=== PATIENT | female | born 1995 | race Caucasian/White ===

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

== ENCOUNTER → 2017-06-21 | Outpatient (CLI) | payer OTHER ==
--- NOTE | 2017-06-21 09:12 | MR ---
EXAMINATION TYPE: MR brain wo/w con DATE OF EXAM: 06/21/2017 COMPARISON: Prior MRI brain September 09, 2016. CT brain January 26, 2016. HISTORY: Headaches, dizziness TECHNIQUE: Multiplanar, multisequence images of the brain and brainstem is performed without and with IV contras t, utilizing 13 mL intravenous Gadavist . FINDINGS: Diffusion weighted images demonstrate no evidence of a recent infarct or other diffusion ab normality. There is no extra-axial fluid collection or significant white matter signal abnormality. The ventricular system and cisternal spaces are normal in size and appearance. The brain volume is age appropriate. Midline structures demonstrate normal morphology. The craniocervical junction appears within normal limits. Post contrast images demonstrate no abnormal enhancement. The dural venous sinuses appear pa tent. The visualized sinuses are clear and the globes are intact. No suspicious fluid signal is seen in mastoid air cells bilaterally. IMPRESSION: No significant finding is seen to account for patient's symptoms. No significant change f rom prior studies is noted.
--- NOTE | 2017-06-21 09:26 | MR ---
EXAMINATION TYPE: MR mandeep/lsjuve wo con DATE OF EXAM: 06/21/2017 COMPARISON: CT cervical spine January 22, 2015. CT abdomen and pelvis March 11, 2015. HISTORY: cervicalgia and Lumbago per order. Headaches with recently noticed lump in neck per patient. Scoliosis with middle back pain for 5 years causing pain into both thighs per patient. TECHNIQUE: Multiplanar, multisequence imaging of the cervical and lumbar spine are performed without IV contrast. FINDINGS: C-SPINE: FINDINGS: Sagittal images of the cervical spine show the craniocervical junction to appear within nor mal limits. The cervical and upper thoracic spinal cord is normal in course, caliber, and signal. V ertebral alignment remains straightened. The vertebral body and intravertebral disk heights are reynaldo l. No significant posterior disc herniations are seen on sagittal images. The bone marrow signal inte nsity is within normal limits. No significant spurring is seen. Axial images show there is no significant focal disk disease, spinal canal stenosis, neural foraminal narrowing, or spinal cord compromise at any cervical level. IMPRESSION: Straightening of cervical spine redemonstrated otherwise unremarkable study. L-SPINE: Sagittal images of the lumbar spine show vertebral body heights and alignment to appear satisfactory. The intervertebral discs demonstrate normal heights and hydration. No large disc herniations are see n on sagittal images. The conus medullaris is normal in position and signal ending at inferior L1 lev el. The bone marrow signal intensity is within normal limits. No significant spurring is seen. Axial images show mild facet arthropathy L4-L5 level otherwise are felt unremarkable. There is no sp inal canal stenosis, neural foraminal narrowing, or evidence of nerve root compromise at any lumbar l evel. Paraspinal muscle bulk is preserved. No suspicious retroperitoneal findings are seen. IMPRESSION: Mild facet arthropathy L4-L5 level otherwise unremarkable study.
== END ==
LOC: RADMRIMAIN 07:29
PROVIDERS: ATTEND Nurse Practitioner Acute Care
DX: M46.86 Other specified inflammatory spondylopathies, lumbar region (principal); M54.2 Cervicalgia; R51 Headache; R42 Dizziness and giddiness
CPT/HCPCS: 70553; 72141; 72148; A9581

== ENCOUNTER → 2017-07-09 | Outpatient (CLI) | payer OTHER ==
--- NOTE | 2017-07-09 11:18 | US ---
EXAMINATION TYPE: US abdomen complete DATE OF EXAM: 07/09/2017 COMPARISON: NONE CLINICAL HISTORY: R10.9 Abd Pain, Pelvic pain R10.2. EXAM MEASUREMENTS: Liver Length: 19.1 cm Gallbladder Wall: 0.4 cm CBD: 0.2 cm Spleen: 13.7 cm Right Kidney: 12.4 x 4.5 x 4.6 cm Left Kidney: 12.8 x 4.8 x 5.8 cm Morbidly obese patient, technically difficult study Pancreas: Obscured by bowel gas Liver: Increased attenuation, decreased visualization of vessels suggestive of fatty infiltrate, hep atomegaly Gallbladder: No stones seen Evidence for sonographic Hoyos's sign: no CBD: wnl Spleen: splenomegaly Right Kidney: enlarged Left Kidney: enlarged Upper IVC: wnl Abd Aorta: Bifurcation obscured by overlying bowel gas, otherwise wnl IMPRESSION: 1. Mild increased hepatic attenuation that most commonly relates to mild hepatic steatosis. 2. Splenomegaly.
--- NOTE | 2017-07-09 11:27 | US ---
EXAMINATION TYPE: US pelvic complete DATE OF EXAM: 07/09/2017 COMPARISON: NONE CLINICAL HISTORY: R10.9 Abd Pain, Pelvic pain R10.2. TECHNIQUE: Transabdominal (TA) Date of LMP: Patient unsure, but believes it may have been the end of last month. EXAM MEASUREMENTS: Uterus: 6.8 x 2.4 x 3.2 cm Endometrial Stripe: 0.4 cm Right Ovary: 2.4 x 1.5 x 1.7 cm Left Ovary: 2.4 x 1.5 x 1.5 cm Morbidly obese patient. 1. Uterus: Anteverted wnl 2. Endometrium: wnl 3. Right Ovary: wnl 4. Left Ovary: wnl 5. Bilateral Adnexa: wnl 6. Posterior cul-de-sac: wnl IMPRESSION: Slightly limited exam due to the patient's body habitus and transabdominal technique, how ever uterus, ovaries, and endometrium appear grossly within normal limits.
== END | disposition home or self-care (01) ==
LOC: RADUSWWP 09:52
PROVIDERS: ATTEND Family Medicine
DX: K76.0 Fatty (change of) liver, not elsewhere classified (principal); R16.1 Splenomegaly, not elsewhere classified; R10.9 Unspecified abdominal pain
CPT/HCPCS: 76700; 76856

== ENCOUNTER 2017-10-21 09:27 | Day surgery (SDC) | payer OTHER ==
[2017-10-20 09:06] VITALS: BMI 49.2
[~2017-10-21 09:27] MED LIST: LACTATED RINGERS 1,000 ML IV SCH
[2017-10-21 10:25] VITALS: RESP 16; TEMP 98.2
[2017-10-21] MEDS ORDERED: LIDOCAINE 1% 20 ML VIAL (10MG/ML) FOR IV START INTRADERMA ONE (10:25)
--- NOTE | 2017-10-21 11:13 | P.PCN ---
Date of Procedure: 10/21/17 Procedure(s) Performed: Preoperative diagnosis: Pseudotumor cerebri Post operative diagnoses: Pseudotumor cerebri Procedure= lumbar puncture Anesthesia local infiltration with lidocaine 1% 2 mL., and moderate sedation with Versed 2 mg and fentanyl 150 g Condition: stable Complication: none. Description of the procedure procedure risk and benefits discussed with the patient ,and consent signed. Patient and the procedure area placed in lateral position back prepped with chlorhexidine 3 times been local infiltration of the skin and subcutaneous tissue with lidocaine 1% 2 mL for skin and subcu interstitial frustrations at L4 5 levels then 20-gauge Quincke-type needle advanced slowly at L4- 5 interlaminar space there was positive cerebrospinal fluid which was clear, no heme, no paresthesia opening pressure was 36 cm of water total of 12 ML of clear cerebrospinal fluid collected in 4 different tubes 3-/2 mL in each, then the needle removed and a Band-Aid applied and patient tolerated the procedure well without any complications. opening pressures 36 c.m of water
[2017-10-21] MEDS ORDERED: IV FLUID CONTINUATION 1,000 ML IV ONE (11:16)
[2017-10-21 12:12] VITALS: BP 111/60; PULSE 74
[2017-10-21 12:16] LABS: Glucose,CSF 49 mg/dL (40-70); Total Protein,CSF 31 mg/dL (12-60)
[2017-10-21 14:56] LABS: Appearance,CSF Clear; CSF Tube Number 2; CSF Tube Volume 4.5; Nucleated Cells, CSF 0 u/L (0-5); Red Blood Cell,CSF 0 u/L (0-10)
== END 2017-10-21 12:32 | disposition home or self-care (01) ==
LOC: ORPAIN 09:27
PROVIDERS: ATTEND Specialist
DX: G93.2 Benign intracranial hypertension (principal); Z88.0 Allergy status to penicillin; Z88.1 Allergy status to other antibiotic agents; Z88.5 Allergy status to narcotic agent
CPT/HCPCS: 62270; 81025; 88108; 84157; 82945; 89050; J2250; J2001; J3010; 99152

== ENCOUNTER 2017-10-22 15:10 | Emergency (ER) | payer OTHER ==
[2017-10-22 15:30] VITALS: TEMP 98
[2017-10-22] MEDS ORDERED: METOCLOPRAMIDE 5 MG/ML 2 ML VIAL IVP STA (15:32)
[2017-10-22] MEDS ORDERED: diphenhydrAMINE 50 MG/ML 1 ML VIAL IVP STA (15:32)
[2017-10-22] MEDS ORDERED: CAFFEINE-SODIUM BENZOATE 500 MG in SODIUM CHLORIDE 0.9% 1,000 ML IVPB ONE (15:45)
[2017-10-22] MEDS ORDERED: HYDROmorphone 0.5 MG/0.5 ML SYRINGE IVP STA (16:19)
--- NOTE | 2017-10-22 16:23 | ED ---
General Adult HPI - General Source: patient Mode of arrival: ambulatory Limitations: no limitations <Checo Montano - Last Filed: 10/22/17 16:20> - General Source: patient, RN notes reviewed Mode of arrival: ambulatory Limitations: no limitations <Royer Pimentel - Last Filed: 10/22/17 17:18> - General Chief complaint: Nausea/Vomiting/Diarrhea Stated complaint: HALL S/P Lumbar puncture Time Seen by Provider: 10/22/17 15:21 - History of Present Illness Initial comments: This a 22-year-old female since emergency Department chief complaint headache. Patient states she had LP yesterday but Dr. Garcia to rule in or rule out pseudotumor cerebri. Patient states that her opening pressures 36 slightly increased from prior 33. Patient states that she went home she had a headache she states she laid at home flap 4 hours or she didn't think. She's tried Fioricet, Tylenol and ibuprofen. Patient states that has not helped. She states every time she stands up it worse and she vomits. Patient comes here secondary to spinal headache. Patient denies any fevers or chills. Denies any back pain. (Royer Pimentel) - Related Data Home Medications Medication Instructions Recorded Confirmed traZODone HCL [Desyrel] 100 mg PO HS 07/17/16 10/22/17 Butalb/APAP/Caff 50-325-40Mg 1 tab PO Q6H PRN 10/19/16 10/22/17 [Fioricet 50-325-40] Medroxyprogesterone Acetate 150 mg IM Q90D 10/20/17 10/22/17 [Depo-Provera] Topiramate [Topamax] 150 mg PO DAILY 10/20/17 10/22/17 acetaZOLAMIDE [Diamox] 375 mg PO BID 10/20/17 10/22/17 Ferrous Sulfate [Feosol] 325 mg PO DAILY 10/22/17 10/22/17 Previous Rx's Medication Instructions Recorded Ondansetron Odt [Zofran Odt] 4 mg PO Q8HR PRN #20 tab 10/22/17 Allergies Allergy/AdvReac Type Severity Reaction Status Date / Time morphine Allergy Intermediate Rash/Hives Verified 10/22/17 15:53 Penicillins Allergy Intermediate Rash/Hives Verified 10/22/17 15:53 clarithromycin [From Biaxin] Allergy Rash/Hives Verified 10/22/17 15:53 Review of Systems ROS Other: All systems not noted in ROS Statement are negative. <Checo Montano - Last Filed: 10/22/17 16:20> ROS Other: All systems not noted in ROS Statement are negative. <Royer Pimentel - Last Filed: 10/22/17 17:18> ROS Statement: Those systems with pertinent positive or pertinent negative responses have been documented in the HPI. Past Medical History Past Medical History: Asthma, Chest Pain / Angina, GERD/Reflux, Musculoskeletal Disorder, Syncope Additional Past Medical History / Comment(s): CHILDHOOD ASTHMA; Seasonal Allergies; HX PANCREATITIS; HX LT ANKLE FX, "POPS" OUT OF PLACE OCC; C/O FREQ PALPITATIONS, GETS CP, POTS, POCS; OPTIC NERVE PRESSURE/UNKNOWN CAUSE History of Any Multi-Drug Resistant Organisms: MRSA Date of last positivie culture/infection: 2014 MDRO Source:: left foot Past Surgical History: No Surgical Hx Reported Additional Past Surgical History / Comment(s): WISDOM TEETH EXTRACTED; PAIN PROCEURES Past Anesthesia/Blood Transfusion Reactions: Motion Sickness Past Psychological History: Anxiety, Depression, Panic Disorder, PTSD Smoking Status: Current every day smoker Past Alcohol Use History: None Reported Past Drug Use History: None Reported - Past Family History Mother Family Medical History: No Reported History <Checo Montano - Last Filed: 10/22/17 16:20> General Exam Limitations: no limitations <Checo Montano - Last Filed: 10/22/17 16:20> General appearance: alert, in no apparent distress Head exam: Present: atraumatic, normocephalic, normal inspection Eye exam: Present: normal appearance, PERRL, EOMI. Absent: scleral icterus, conjunctival injection, periorbital swelling ENT exam: Present: normal exam, normal oropharynx, mucous membranes moist, TM's normal bilaterally Neck exam: Present: normal inspection, full ROM. Absent: tenderness, meningismus, lymphadenopathy Respiratory exam: Present: normal lung sounds bilaterally. Absent: respiratory distress, wheezes, rales, rhonchi, stridor Cardiovascular Exam: Present: regular rate, normal rhythm, normal heart sounds. Absent: systolic murmur, diastolic murmur, rubs, gallop, clicks Neurological exam: Present: alert, oriented X3, CN II-XII intact, reflexes normal. Absent: motor sensory deficit Skin exam: Present: warm, dry, intact, normal color. Absent: rash <Royer Pimentel - Last Filed: 10/22/17 17:18> Vital Signs 10/22/17 15:23 Temperature 98.0 F Pulse Rate 87 Respiratory 22 Rate Blood Pressure 127/61 O2 Sat by Pulse 98 Oximetry Medical Decision Making <Checo Montano - Last Filed: 10/22/17 16:20> <Royer Pimentel - Last Filed: 10/22/17 17:18> - Medical Decision Making Medical decision making: The patient had an LP done yesterday for pseudotumor cerebra. She presents today with headache and vomiting when she stands up but is pain-free when she lays flat. I spoke with the Dr. Farrar, on-call anesthesiologist. He recommends that the patient be treated conservatively in the emergency room with medications to control nausea and pain. treat for pain and nausea at home. She can be discharged home and to return if needed on Wednesday if she continues have a headache for a lumbar patch done under fluoroscopy. Dr. Montano (Checo Montano) Patient presented for spinal headache after receiving outpatient yesterday. Patient's had nausea vomiting worse headache with standing up. Patient states she does feel slightly improved after IV fluids caffeine pain medication and antiemetics and Benadryl. Dr. Montano did discuss case with anesthesiologist recommends patient be discharged with pain medication and antiemetics and if symptoms persist on Wednesday the with a blood patch. Patient states that her neurologist called her and, according states she'll take this for her pain and I will discharge her with antiemetics. (Royer Pimentel) Disposition <Checo Montano - Last Filed: 10/22/17 16:20> Time of Disposition: 17:18 <Royer Pimentel - Last Filed: 10/22/17 17:18> Clinical Impression: Spinal headache Disposition: HOME SELF-CARE Instructions: Lumbar Puncture (ED) Additional Instructions: Please return to the Emergency Department if symptoms worsen or any other concerns. Prescriptions: Ondansetron Odt [Zofran Odt] 4 mg PO Q8HR PRN #20 tab PRN Reason: Nausea Referrals: Lian Ramon MD [Primary Care Provider] - 1-2 days
[2017-10-22 18:13] VITALS: RESP 18
[2017-10-22 18:16] VITALS: BP 114/64; PULSE 71
== END 2017-10-22 18:14 | disposition home or self-care (01) ==
LOC: EC 15:10
DX: G97.1 Other reaction to spinal and lumbar puncture (principal); R11.10 Vomiting, unspecified; F32.9 Major depressive disorder, single episode, unspecified; F41.0 Panic disorder [episodic paroxysmal anxiety]; F43.10 Post-traumatic stress disorder, unspecified; F17.200 Nicotine dependence, unspecified, uncomplicated; Z86.14 Personal history of Methicillin resistant Staphylococcus aureus infection; Z79.899 Other long term (current) drug therapy; Z88.0 Allergy status to penicillin; Z88.1 Allergy status to other antibiotic agents; Z88.5 Allergy status to narcotic agent; Z98.890 Other specified postprocedural states
CPT/HCPCS: 99284; 96374; 96375 ×3; J1200; J2765; J1170

== ENCOUNTER 2017-10-26 14:20 | Inpatient (IN) | payer OTHER ==
[2017-10-26] MEDS ORDERED: METOCLOPRAMIDE 5 MG/ML 2 ML VIAL IVP STA (14:50)
[2017-10-26] MEDS ORDERED: diphenhydrAMINE 50 MG/ML 1 ML VIAL IVP STA (14:50)
[2017-10-26] MEDS ORDERED: SODIUM CHLORIDE 0.9% 1,000 ML IV ONE (14:50)
[2017-10-26] MEDS ORDERED: CAFFEINE-SODIUM BENZOATE 500 MG in SODIUM CHLORIDE 0.9% 1,000 ML IVPB ONE (15:00)
[2017-10-26 15:17] LABS: Anisocytosis Slight; Basophils # (A) 0.1 k/uL (0-0.2); Basophils % (A) 1 %; Eosinophils # (A) 0.1 k/uL (0-0.7); Eosinophils % (A) 1 %; HCT 44.2 % (34.0-46.0); HGB 14.3 gm/dL (11.4-16.0); Lymphocytes # (A) 2.2 k/uL (1.0-4.8); Lymphocytes % (A) 14 %; MCH 25.6 pg (25.0-35.0); MCHC 32.4 g/dL (31.0-37.0); MCV 79.1 fL (80.0-100.0); Mean Platelet Volume 7.2; Monocytes # (A) 0.5 k/uL (0-1.0); Monocytes % (A) 3 %; Neutrophils # (A) 12.6 k/uL (1.3-7.7); Neutrophils % (A) 81 %; Platelet Count 286 k/uL (150-450); RBC 5.59 m/uL (3.80-5.40); WBC 15.6 k/uL (4.0-11.0)
[2017-10-26 15:28] LABS: Anion Gap 15 mmol/L; Blood Urea Nitrogen 13 mg/dL (7-17); Calcium 9.6 mg/dL (8.4-10.2); Carbon Dioxide 21 mmol/L (22-30); Chloride 109 mmol/L (98-107); Glucose 106 mg/dL (74-99); Potassium 3.9 mmol/L (3.5-5.1); Sodium 145 mmol/L (137-145)
--- NOTE | 2017-10-26 15:30 | ED ---
Headache HPI - General Chief Complaint: Headache Stated Complaint: headache Time Seen by Provider: 10/26/17 14:34 Mode of arrival: ambulatory Limitations: no limitations - History of Present Illness Initial Comments: 22-year-old obese female presenting for evaluation of intractable headache. States she has been undergoing workup for these headaches which she has had since she was 20 years old is included an MRI on 09/29/2017 which showed nodular appearance of the ... She had a lumbar puncture by Dr. Garcia on 10/21/17 with an opening pressure of 36 (elevated from previous 32) and has had the HALL since. Was seen in this ED the following day and Dr. Schneider ( anesthesia) recommended medical management and to return to the ED wednesday for blood patch under fluoroscopy if symptoms should worsen or persist. Although she continued to have HALL, her pain clinic recommended she give it one more day, hence her presentation today. She states it is in the occipital area and worse with standing upright and improved with lying prone. No response to fioricet or zofran. Denies change in vision, gait disturbance, fevers, chills, chest pain, shortness of breath, rash or skin lesions to area of LP. - Related Data Home Medications Medication Instructions Recorded Confirmed traZODone HCL [Desyrel] 100 mg PO HS 07/17/16 10/26/17 Butalb/APAP/Caff 50-325-40Mg 1 tab PO Q6H PRN 10/19/16 10/26/17 [Fioricet 50-325-40] Medroxyprogesterone Acetate 150 mg IM Q90D 10/20/17 10/26/17 [Depo-Provera] Topiramate [Topamax] 150 mg PO DAILY 10/20/17 10/26/17 acetaZOLAMIDE [Diamox] 375 mg PO BID 10/20/17 10/26/17 Ferrous Sulfate [Feosol] 325 mg PO HS 10/22/17 10/26/17 Acetaminophen-Codeine 300-30mg 1 tab PO BID PRN 10/26/17 10/26/17 [Tylenol #3] Previous Rx's Medication Instructions Recorded Ondansetron Odt [Zofran Odt] 4 mg PO Q8HR PRN #20 tab 10/22/17 Allergies Allergy/AdvReac Type Severity Reaction Status Date / Time morphine Allergy Intermediate Rash/Hives Verified 10/26/17 14:41 Penicillins Allergy Intermediate Rash/Hives Verified 10/26/17 14:41 clarithromycin [From Biaxin] Allergy Rash/Hives Verified 10/26/17 14:41 Review of Systems ROS Statement: Those systems with pertinent positive or pertinent negative responses have been documented in the HPI. ROS Other: All systems not noted in ROS Statement are negative. Constitutional: Denies: fever, chills, weight change, night sweats Eyes: Denies: eye pain, vision change ENT: Denies: ear pain, throat pain, epistaxis, congestion Respiratory: Denies: cough, wheezes Cardiovascular: Denies: as per HPI, chest pain, dyspnea on exertion, syncope Endocrine: Denies: fatigue, polydipsia, polyuria Gastrointestinal: Reports: nausea. Denies: abdominal pain, vomiting Genitourinary: Denies: urgency, dysuria, frequency Musculoskeletal: Denies: back pain, arthralgia, myalgia Skin: Denies: rash, lesions, change in color Neurological: Reports: headache. Denies: weakness, numbness, paresthesias, confusion, abnormal gait, vertigo Psychiatric: Denies: anxiety, depression Hematological/Lymphatic: Denies: easy bleeding, easy bruising Past Medical History Past Medical History: Asthma, Chest Pain / Angina, GERD/Reflux, Musculoskeletal Disorder, Syncope Additional Past Medical History / Comment(s): CHILDHOOD ASTHMA; Seasonal Allergies; HX PANCREATITIS; HX LT ANKLE FX, "POPS" OUT OF PLACE OCC; C/O FREQ PALPITATIONS, GETS CP, POTS, POCS; OPTIC NERVE PRESSURE/UNKNOWN CAUSE History of Any Multi-Drug Resistant Organisms: MRSA Date of last positivie culture/infection: 2014 MDRO Source:: left foot Past Surgical History: No Surgical Hx Reported Additional Past Surgical History / Comment(s): WISDOM TEETH EXTRACTED; PAIN PROCEURES Past Anesthesia/Blood Transfusion Reactions: Motion Sickness Past Psychological History: Anxiety, Depression, Panic Disorder, PTSD Smoking Status: Current every day smoker Past Alcohol Use History: None Reported Past Drug Use History: None Reported - Past Family History Mother Family Medical History: No Reported History General Exam Limitations: no limitations General appearance: alert, in no apparent distress Head exam: Present: atraumatic, normocephalic, normal inspection Eye exam: Present: normal appearance, PERRL, EOMI. Absent: scleral icterus, conjunctival injection, periorbital swelling ENT exam: Present: normal exam, normal oropharynx Neck exam: Present: normal inspection, full ROM. Absent: tenderness, meningismus Respiratory exam: Present: normal lung sounds bilaterally. Absent: respiratory distress, wheezes, rales, rhonchi, stridor Cardiovascular Exam: Present: normal rhythm, tachycardia. Absent: regular rate GI/Abdominal exam: Present: soft. Absent: distended, tenderness, guarding, rebound, rigid Rectal exam: Present: deferred Extremities exam: Present: normal inspection, full ROM Back exam: Present: normal inspection, full ROM. Absent: tenderness, CVA tenderness (R), CVA tenderness (L), muscle spasm, paraspinal tenderness, vertebral tenderness Neurological exam: Present: alert, oriented X3, CN II-XII intact Psychiatric exam: Present: normal affect, normal mood Skin exam: Present: warm, dry, intact, normal color, rash Course Vital Signs 10/26/17 10/26/17 14:29 16:34 Temperature 97.7 F 98.2 F Pulse Rate 108 H 75 Respiratory 18 16 Rate Blood Pressure 119/69 135/76 O2 Sat by Pulse 98 100 Oximetry Medical Decision Making - Medical Decision Making 22-year-old female with past medical history of intractable headaches taking Fioricet and Zofran presented for evaluation of continued headache. Lumbar puncture on 10/21/[address] Garcia, returned 10/22/17 and anesthesia recommended medical management and return on Wednesday if symptoms should worsen or persist. Patient found on bed laying prone. Cranial nerves II through XII intact without focal neurologic deficits and normal gait and station however she does appear to go into mild to moderate distress with sitting upright. Remainder of physical exam is benign. We'll obtain labs and provide symptom control and start admission process. Discussed with Dr. An who accepted the admission with request for consult with Anesthesia for blood patch and Dr. Orourke (neuro). He further requested CTA head which was supposed to be obtained yesterday as an outpatient. Admission order placed and bed request submitted. Discussed with Dr. Garcia who stated he would be able to see the patient later today. Dr. Orourke requested the consult be held at this time and if there is no improvement after the blood patch to consult him at that point. - Lab Data Result diagrams: 10/26/17 15:04 10/26/17 15:04 Lab Results 10/26/17 10/26/17 Range/Units 15:04 15:04 WBC 15.6 H (4.0-11.0) k/uL RBC 5.59 H (3.80-5.40) m/uL Hgb 14.3 (11.4-16.0) gm/dL Hct 44.2 (34.0-46.0) % MCV 79.1 L (80.0-100.0) fL MCH 25.6 (25.0-35.0) pg MCHC 32.4 (31.0-37.0) g/dL RDW 16.0 H (11.5-15.5) % Plt Count 286 (150-450) k/uL Neutrophils % 81 % Lymphocytes % 14 % Monocytes % 3 % Eosinophils % 1 % Basophils % 1 % Neutrophils # 12.6 H (1.3-7.7) k/uL Lymphocytes # 2.2 (1.0-4.8) k/uL Monocytes # 0.5 (0-1.0) k/uL Eosinophils # 0.1 (0-0.7) k/uL Basophils # 0.1 (0-0.2) k/uL Anisocytosis Slight Sodium 145 (137-145) mmol/L Potassium 3.9 (3.5-5.1) mmol/L Chloride 109 H (98-107) mmol/L Carbon Dioxide 21 L (22-30) mmol/L Anion Gap 15 mmol/L BUN 13 (7-17) mg/dL Creatinine 0.90 (0.52-1.04) mg/dL Est GFR (MDRD) Af Amer >60 (>60 ml/min/1.73 sqM) Est GFR (MDRD) Non-Af >60 (>60 ml/min/1.73 sqM) Glucose 106 H (74-99) mg/dL Calcium 9.6 (8.4-10.2) mg/dL Disposition Clinical Impression: Post lumbar puncture headache, Nausea Disposition: ADMITTED IP TO THIS [facility] Decision to Admit Reason: Admit from EC Decision Date: 10/26/17 Decision Time: 15:31
[2017-10-26] MEDS ORDERED: ONDANSETRON 4 MG/2 ML VIAL IVP PRN (15:31)
[2017-10-26] MEDS ORDERED: ACETAMINOPHEN TAB 325 MG TAB PO PRN (15:31)
[2017-10-26] MEDS ORDERED: NALOXONE 0.4 MG/ML 1 ML VIAL IV PRN (15:31)
[2017-10-26] MEDS ORDERED: BUTALB/APAP/CAFF 50-325-40MG TAB PO PRN (15:38)
[2017-10-26] MEDS ORDERED: RX INFO: IV CONTRAST WAS GIVEN 1 EACH MISC MISCELLANE PRN (15:39)
--- NOTE | 2017-10-26 16:36 | CT ---
EXAMINATION TYPE: CT angio head DATE OF EXAM: 10/26/2017 HISTORY: HALL after lumbar puncture x5 days ago. COMPARISON: NONE CT DLP: 1533.1 mGycm. Automated Exposure Control for Dose Reduction was Utilized. TECHNIQUE: CTA scan of the neck is performed without and with IV Contrast, patient injected with 100 mL of Omnipaque 350, axial images are obtained, coronal and sagittal reformatted images are reviewed . Three-D reconstructed images are created on an independent workstation and reviewed. FINDINGS: Carotid/Vascular Structures: No evidence of focal stenosis, intracranial aneurysm, or vascular occlus ion. The vertebral arteries are diminutive but codominant. Posterior communicating arteries are also diminutive, left greater than right, but the [place] of [place] is overall intact. No arterial venous m alformations are identified. OTHER: Paranasal sinuses are well aerated other than minimal ethmoidal mucosal thickening. No calvari al fracture. Mastoid air cells are also well aerated. Frontal sinuses are noted to be hypoplastic. No suspicious extra-axial fluid collection. Ventricles and basilar cisterns are unremarkable. IMPRESSION: No evidence of vascular occlusion, aneurysm, or stenosis. Nodular prominence of the A1 s egment of the left anterior cerebral artery is likely attributable to partial volume averaging on the prior MR and not redemonstrated on today's examination.
[2017-10-26] MEDS ORDERED: medroxyPROGESTERone 150 MG/ML 1ML VIAL IM SCH (18:00)
--- NOTE | 2017-10-26 19:10 | P.PCN ---
Date of Procedure: 10/26/17 Procedure(s) Performed: Procedure= lumbar epidural blood patch. Preoperative diagnosis= postdural puncture headache. Postoperative diagnoses= post dural puncture headache. Indication for the procedure= patient developed headache after ,diagnostic Lumbar Puncture ,the headache persists in spite of conservative treatment,, there is no focal neurological deficit, no fever, no neck stiffness, headache worse with sitting and standing position, and improved with lying supine, for this reason patient is a good candidate for epidural blood patch. Risks ,and benefits, and alternatives discussed with the patient ,and she agreed with proceeding ,and she signed the consent. anesthesia= IV sedation with fentanyl 100 mcg ,and local infiltration with lidocaine 1% 3 mL. Complications= none. Description of the procedure= patient identified risks and benefits of the procedure explained to the patient and patient agreed with proceeding, vital signs monitored during the procedure and IV sedation given to decrease anxiety, Back lumbar area prepped with chlorhexidine 3 times, then drape applied the local infiltration of the skin and subcutaneous tissue with lidocaine 1% 3 mL at L4-5 interlaminar space then 18-gauge Tuohy needle advanced slowly at L5-S1 interlaminar space, There was positive loss of resistance to normal saline, no heme no paresthesia no cerebrospinal fluid, then after that 20 ML of the blood taken from the patient under strict sterile technique, and after the right antecubital area prepped with a chlorhexidine 3 times using 20-gauge Angiocath, and under sterile technique the 20 ML of the blood , taken from the patient injected in the epidural space ,after negative aspiration for heme or CSF , and there was , no paresthesia, then the needle removed intact , the skin cleaned and the , bandage applied and patient discharged from the PACU in stable condition , after discharge criteria met,.
--- NOTE | 2017-10-26 20:57 | P.HPIM ---
History of Present Illness H&P Date: 10/26/17 Chief Complaint: Headache 22-year-old female with a known history of asthma, GERD and migraine headaches since age 20, presenting for evaluation of intractable headache. States she has been undergoing workup for these headaches which she has had since she was 20 years old is included an MRI on 09/29/2017 which showed nodular prominence of left anterior cerebral artery. She had a lumbar puncture by Dr. Garcia on with an opening pressure of 36 (elevated from previous 32) and has had the HALL since. Was seen in this ED the following day and Dr. Schneider ( anesthesia) recommended medical management and to return to the ED wednesday for blood patch under fluoroscopy if symptoms should worsen or persist. Although she continued to have HALL, her pain clinic recommended she give it one more day, hence her presentation today. She states it is in the occipital area and worse with standing upright and improved with lying prone. No response to fioricet or zofran. Denies change in vision, gait disturbance, fevers, chills, chest pain, shortness of breath, rash or skin lesions to area of LP. CT angiogram of the head showed no evidence of aneurysm, stenosis. Nodular prominence was not redemonstrated. Review of Systems Constitutional: Patient denies any fever or chills . No generalized weakness or weight loss. Abdomen: Patient denied nausea vomiting and diarrhea and abdominal pain. Cardiovascular: Patient denies any chest pain or short of breath no palpitations. Respiratory: patient denied any cough is from production. No shortness of breath Neurologic: Patient denied any numbness or tingling . Patient does have occipital headache. Musculoskeletal: Patient denies any complaints of joint swelling or deformity. Skin: Negative Psychiatric: Negative Endocrine: No heat or cold intolerance. No recent weight gain. Genitourinary: No dysuria or hematuria. All other 14 point ROS negative except the above Past Medical History Past Medical History: Asthma, Chest Pain / Angina, GERD/Reflux, Musculoskeletal Disorder, Syncope Additional Past Medical History / Comment(s): CHILDHOOD ASTHMA; Seasonal Allergies; HX PANCREATITIS; HX LT ANKLE FX, "POPS" OUT OF PLACE OCC; C/O FREQ PALPITATIONS, GETS CP, POTS, POCS; OPTIC NERVE PRESSURE/UNKNOWN CAUSE History of Any Multi-Drug Resistant Organisms: MRSA Date of last positivie culture/infection: 2014 MDRO Source:: left foot Past Surgical History: No Surgical Hx Reported Additional Past Surgical History / Comment(s): WISDOM TEETH EXTRACTED; PAIN PROCEURES Past Anesthesia/Blood Transfusion Reactions: Motion Sickness Past Psychological History: Anxiety, Depression, Panic Disorder, PTSD Smoking Status: Current every day smoker Past Alcohol Use History: None Reported Past Drug Use History: None Reported - Past Family History Mother Family Medical History: No Reported History Medications and Allergies Home Medications Medication Instructions Recorded Confirmed Type traZODone HCL [Desyrel] 100 mg PO HS 07/17/16 10/26/17 History Butalb/APAP/Caff 50-325-40Mg 1 tab PO Q6H PRN 10/19/16 10/26/17 History [Fioricet 50-325-40] Medroxyprogesterone Acetate 150 mg IM Q90D 10/20/17 10/26/17 History [Depo-Provera] Topiramate [Topamax] 150 mg PO DAILY 10/20/17 10/26/17 History acetaZOLAMIDE [Diamox] 375 mg PO BID 10/20/17 10/26/17 History Ferrous Sulfate [Feosol] 325 mg PO HS 10/22/17 10/26/17 History Ondansetron Odt [Zofran Odt] 4 mg PO Q8HR PRN #20 tab 10/22/17 10/26/17 Rx Acetaminophen-Codeine 300-30mg 1 tab PO BID PRN 10/26/17 10/26/17 History [Tylenol #3] Allergies Allergy/AdvReac Type Severity Reaction Status Date / Time morphine Allergy Intermediate Rash/Hives Verified 10/26/17 14:41 Penicillins Allergy Intermediate Rash/Hives Verified 10/26/17 14:41 clarithromycin [From Biaxin] Allergy Rash/Hives Verified 10/26/17 14:41 Physical Exam Vitals: Vital Signs Temp Pulse Pulse Resp BP BP Pulse Ox 10/26/17 19:00 87 16 129/74 0 L 10/26/17 18:32 76 16 131/65 99 10/26/17 16:34 98.2 F 75 16 135/76 100 10/26/17 14:29 97.7 F 108 H 18 119/69 98 Intake and Output 10/26/17 10/26/17 10/26/17 06:59 14:59 22:59 Other: Voiding Method Toilet Weight 134.263 kg Patient Weight 10/27/17 06:59 Weight 134.263 kg PHYSICAL EXAMINATION: Patient is lying in the bed comfortably, no acute distress, awake alert and oriented.. HEENT: Normocephalic. Neck is supple. Pupils reactive. Nostrils clear. Oral cavity is moist. Ears reveal no drainage. Neck reveals no JVD, carotid bruits, or thyromegaly. CHEST EXAMINATION: Trachea is central. Symmetrical expansion. Lung swain clear to auscultation and percussion. CARDIAC: Normal S1, S2 with no gallops. No murmurs ABDOMEN: Soft. Bowel sounds normal. No organomegaly. No abdominal bruits. Extremities: reveal no edema. No clubbing or cyanosis Neurologically awake, alert, oriented x3 with well-coordinated movements. No focal deficits noted Skin: No rash or skin lesions. Psychiatric: Coperative. Nonsuicidal Musculoskeletal: No joint swelling or deformity. Normal range of motion. Results CBC & Chem 7: 10/26/17 15:04 10/26/17 15:04 Labs: Abnormal Lab Results - Last 24 Hours (Table) 10/26/17 10/26/17 Range/Units 15:04 15:04 WBC 15.6 H (4.0-11.0) k/uL RBC 5.59 H (3.80-5.40) m/uL MCV 79.1 L (80.0-100.0) fL RDW 16.0 H (11.5-15.5) % Neutrophils # 12.6 H (1.3-7.7) k/uL Chloride 109 H (98-107) mmol/L Carbon Dioxide 21 L (22-30) mmol/L Glucose 106 H (74-99) mg/dL Thrombosis Risk Factor Assmnt - Choose All That Apply Any of the Below Risk Factors Present?: Yes Each Factor Represents 1 point: Obesity (BMI >25) Other Risk Factors: No Thrombosis Risk Factor Assessment Total Risk Factor Score: 1 Thrombosis Risk Factor Assessment Level: Low Risk Assessment and Plan Assessment: Headache likely due to post lumbar puncture Migraine headaches Pseudotumor cerebri. Status post LP on 10/21/2017 Childhood asthma GERD Morbid obesity with BMI 49.3 Leukocytosis. Likely reactive. No signs of infection noted. Plan: Patient will be continued on Fioricet and anesthesia has been consulted. CTA of head and neck was ordered which showed no aneurysm or palpation or stenosis. Nodular prominence at left anterior cerebral artery which showed on the recent MRI was not redemonstrated. We will continue the home medications and follow with CBC tomorrow. Continue current management and further recommendations based on the clinical course. Time with Patient: Greater than 30
[2017-10-26] MEDS ORDERED: FERROUS SULFATE 325 MG TAB PO SCH (21:00)
[2017-10-26] MEDS ORDERED: TOPIRAMATE 100 MG TAB PO SCH (21:00)
[2017-10-26] MEDS ORDERED: traZODone HCL 100 MG TAB PO SCH (21:00)
[2017-10-26] MEDS ORDERED: TOPIRAMATE 25 MG TAB PO SCH (21:00)
[2017-10-26] MEDS: acetaZOLAMIDE 250 MG TAB PO SCH (21:47)
[2017-10-27 06:26] LABS: Anisocytosis Slight; Basophils # (A) 0.1 k/uL (0-0.2); Basophils % (A) 1 %; Eosinophils # (A) 0.2 k/uL (0-0.7); Eosinophils % (A) 1 %; HCT 39.6 % (34.0-46.0); HGB 12.9 gm/dL (11.4-16.0); Lymphocytes # (A) 2.9 k/uL (1.0-4.8); Lymphocytes % (A) 27 %; MCH 25.9 pg (25.0-35.0); MCHC 32.6 g/dL (31.0-37.0); MCV 79.4 fL (80.0-100.0); Mean Platelet Volume 7.1; Monocytes # (A) 0.5 k/uL (0-1.0); Monocytes % (A) 5 %; Neutrophils # (A) 7.2 k/uL (1.3-7.7); Neutrophils % (A) 66 %; Platelet Count 234 k/uL (150-450); RBC 4.99 m/uL (3.80-5.40); RDW 16.1 % (11.5-15.5); WBC 10.9 k/uL (4.0-11.0)
[2017-10-27 06:41] LABS: Anion Gap 11 mmol/L; Blood Urea Nitrogen 11 mg/dL (7-17); Calcium 9.5 mg/dL (8.4-10.2); Carbon Dioxide 19 mmol/L (22-30); Chloride 114 mmol/L (98-107); Glucose 99 mg/dL (74-99); Sodium 144 mmol/L (137-145)
[2017-10-27] MEDS: acetaZOLAMIDE 250 MG TAB PO SCH (08:52)
[2017-10-27] MEDS ORDERED: TOPIRAMATE 25 MG TAB PO SCH (09:00)
[2017-10-27] MEDS ORDERED: TOPIRAMATE 100 MG TAB PO SCH (09:00)
[2017-10-27 13:24] VITALS: BP 124/71; PULSE 87; RESP 20; TEMP 98.4
--- NOTE | 2017-10-27 23:43 | P.DS ---
Providers Date of admission: 10/26/17 15:31 Expected date of discharge: 10/27/17 Attending physician: Ramos An Consults: 10/26/17 15:36 Consult Physician Routine Consulting Provider: Eamon Garcia Consult Reason/Comments: Post LP HALL / blood patch Do you want consulting provider notified?: Already Contacted Primary care physician: Lian Ramon Hospital Course: Discharge diagnosis Headache likely due to post lumbar puncture. Status post blood patch placement by anesthesiology. Improved now Migraine headaches Pseudotumor cerebri. Status post LP on 10/21/2017 Childhood asthma GERD Morbid obesity with BMI 49.3 Leukocytosis. Likely reactive. No signs of infection noted. Hospital course 22-year-old female with a known history of asthma, GERD and migraine headaches since age 20, presenting for evaluation of intractable headache. States she has been undergoing workup for these headaches which she has had since she was 20 years old is included an MRI on 09/29/2017 which showed nodular prominence of left anterior cerebral artery. She had a lumbar puncture by Dr. Garcia on with an opening pressure of 36 (elevated from previous 32) and has had the HALL since. Was seen in this ED the following day and Dr. Schneider ( anesthesia) recommended medical management and to return to the ED wednesday for blood patch under fluoroscopy if symptoms should worsen or persist. Although she continued to have HALL, her pain clinic recommended she give it one more day, hence her presentation today. She states it is in the occipital area and worse with standing upright and improved with lying prone. No response to fioricet or zofran. Denies change in vision, gait disturbance, fevers, chills, chest pain, shortness of breath, rash or skin lesions to area of LP. CT angiogram of the head showed no evidence of aneurysm. Patient was continued on Fioricet and anesthesia has been consulted. His posterior blood patch placement. CTA of head and neck was ordered which showed no aneurysm or palpation or stenosis. Nodular prominence at left anterior cerebral artery which showed on the recent MRI was not redemonstrated. continued the home medications and follow with CBC tomorrow. Leukocytosis normalized now. Patient did improve symptomatically and is stable to be discharged home. Discharge physical examination was done. Patient Condition at Discharge: Fair Plan - Discharge Summary Discharge Rx Participant: No New Discharge Prescriptions: Continue traZODone HCL [Desyrel] 100 mg PO HS Butalb/APAP/Caff 50-325-40Mg [Fioricet 50-325-40] 1 tab PO Q6H PRN PRN Reason: Migraine Headache acetaZOLAMIDE [Diamox] 375 mg PO BID Topiramate [Topamax] 150 mg PO DAILY Medroxyprogesterone Acetate [Depo-Provera] 150 mg IM Q90D Ferrous Sulfate [Iron (65 MG Elemental)] 325 mg PO HS Ondansetron Odt [Zofran ODT] 4 mg PO Q8HR PRN #20 tab PRN Reason: Nausea Acetaminophen-Codeine 300-30mg [Tylenol w/codeine #3] 1 tab PO BID PRN PRN Reason: Headache Discharge Medication List traZODone HCL [Desyrel] 100 mg PO HS 07/17/16 [History] Butalb/APAP/Caff 50-325-40Mg [Fioricet 50-325-40] 1 tab PO Q6H PRN 10/19/16 [ History] Medroxyprogesterone Acetate [Depo-Provera] 150 mg IM Q90D 10/20/17 [History] Topiramate [Topamax] 150 mg PO DAILY 10/20/17 [History] acetaZOLAMIDE [Diamox] 375 mg PO BID 10/20/17 [History] Ferrous Sulfate [Iron (65 MG Elemental)] 325 mg PO HS 10/22/17 [History] Ondansetron Odt [Zofran ODT] 4 mg PO Q8HR PRN #20 tab 10/22/17 [Rx] Acetaminophen-Codeine 300-30mg [Tylenol w/codeine #3] 1 tab PO BID PRN 10/26/17 [History] Follow up Appointment(s)/Referral(s): Lian Ramon MD [Primary Care Provider] - 1-2 days Activity/Diet/Wound Care/Special Instructions: Light activity, call for worsening headache, problems or concerns. Discharge Disposition: HOME SELF-CARE
== END 2017-10-27 14:20 | disposition home or self-care (01) | DRG 103 ==
LOC: EC 14:20 → 6PED 15:31
PROVIDERS: ADMIT Internal Medicine; ATTEND Internal Medicine
PROC: 3E0R3GC Introduction of Other Therapeutic Substance into Spinal Canal, Percutaneous Approach (ICD-10-PCS; principal; 2017-10-26 18:22)
DX: G97.1 Other reaction to spinal and lumbar puncture (principal); E66.01 Morbid (severe) obesity due to excess calories; G43.909 Migraine, unspecified, not intractable, without status migrainosus; G93.2 Benign intracranial hypertension; K21.9 Gastro-esophageal reflux disease without esophagitis; J45.909 Unspecified asthma, uncomplicated; F32.9 Major depressive disorder, single episode, unspecified; F41.0 Panic disorder [episodic paroxysmal anxiety]; F43.10 Post-traumatic stress disorder, unspecified; Z86.14 Personal history of Methicillin resistant Staphylococcus aureus infection; F17.200 Nicotine dependence, unspecified, uncomplicated; Z79.899 Other long term (current) drug therapy; Z88.1 Allergy status to other antibiotic agents; Z88.5 Allergy status to narcotic agent; Z88.0 Allergy status to penicillin; Y84.4 Aspiration of fluid as the cause of abnormal reaction of the patient, or of later complication, without mention of misadventure at the time of the procedure
CPT/HCPCS: 36415; 62273; 70496; 80048; 85025; 96365; 96375; 99285

== ENCOUNTER → 2018-02-14 | Outpatient (CLI) | payer OTHER ==
--- NOTE | 2018-02-14 11:03 | NM ---
EXAMINATION TYPE: NM hepatobiliary w EF DATE OF EXAM: 02/14/2018 COMPARISON: Prior HIDA scan November 20, 2015. Complete abdominal ultrasound May 08, 2017 HISTORY: Right upper quadrant pain. Pain for 3 months with nausea and heartburn-like symptoms per pat ient. TECHNIQUE: After the intravenous administration of 5.7 mCi Tc 99m Mebrofenin hepatobiliary scintigrap hy is performed. Immediate images post injection. FINDINGS: There is satisfactory initial accumulation of tracer by the liver. The gallbladder is not well visua lized even after 60 minutes but becomes visible at 90 minutes. The small bowel activity is noted wit hin 20 minutes. At one hour 8 ounces of oral ensure plus is given to mimic CCK and gallbladder eject ion fraction is calculated at 52 %, in the normal range. Therefore there is no scintigraphic evidenc e of cystic or common bile duct obstruction to suggest acute cholecystitis or gallbladder dyskinesia. IMPRESSION: Exam is within normal limits.
== END | disposition home or self-care (01) ==
LOC: RADNMMAIN 06:40
PROVIDERS: ATTEND Family Medicine
DX: R10.11 Right upper quadrant pain (principal)
CPT/HCPCS: 78226; A9537

== ENCOUNTER 2018-02-15 17:22 | Emergency (ER) | payer OTHER ==
[2018-02-15 17:41] VITALS: PULSE 89; RESP 18
[2018-02-15] MEDS ORDERED: KETOROLAC 30 MG/ML 1 ML VIAL IVP STA (17:52)
[2018-02-15] MEDS ORDERED: ONDANSETRON 4 MG/2 ML VIAL IVP STA (17:52)
[2018-02-15] MEDS ORDERED: PANTOPRAZOLE 40 MG/10 ML VIAL IVP STA (17:52)
[2018-02-15] MEDS ORDERED: SODIUM CHLORIDE 0.9% 1,000 ML IV STA (17:52)
--- NOTE | 2018-02-15 17:57 | ED ---
Abdominal Pain HPI - General Chief Complaint: Abdominal Pain Stated Complaint: Abd Pain Time Seen by Provider: 02/15/18 17:43 Source: patient, RN notes reviewed, old records reviewed Mode of arrival: ambulatory Limitations: no limitations - History of Present Illness Initial Comments: This patient's 22 [id number] female presents emergency department with intermittent right upper quadrant pain for the past few months. She's been evaluated by primary care provider is had multiple ultrasounds. She states that he was worse today and she could not follow-up with her primary care doctor so she went to urgent care. Urgent care center here due to a positive Hoyos sign on exam. They stated that she needed further evaluation. Patient states she's been feeling nauseated. Rates her pain an 8 out of 10. Reports a taking a deep breath and palpation over the abdomen. And occasionally radiates towards her back. No shortness of breath or chest pain. Denies any changes in urination. She does report diarrhea.Patient denies any recent fever, chills, shortness of breath, chest pain, back pain, numbness or tingling, dysuria or hematuria,headaches or visual changes, or any other current symptoms - Related Data Home Medications Medication Instructions Recorded Confirmed traZODone HCL [Desyrel] 200 mg PO HS 07/17/16 02/15/18 acetaZOLAMIDE [Diamox] 250 mg PO HS 10/20/17 02/15/18 Ferrous Sulfate [Iron (65 MG 325 mg PO HS 10/22/17 02/15/18 Elemental)] Albuterol Inhaler [Ventolin Hfa 1 - 2 puff INHALATION RT-Q6H PRN 02/15/18 Inhaler] Prazosin [Minipress] 1 mg PO HS 02/15/18 02/15/18 Topiramate [Trokendi Xr] 200 mg PO HS 02/15/18 02/15/18 acetaZOLAMIDE [Diamox] 125 mg PO HS 02/15/18 02/15/18 Previous Rx's Medication Instructions Recorded Ondansetron Odt [Zofran ODT] 4 mg PO Q8HR PRN #20 tab 10/22/17 Ondansetron Odt [Zofran Odt] 4 mg PO Q8HR PRN #12 tab 02/15/18 Allergies Allergy/AdvReac Type Severity Reaction Status Date / Time morphine Allergy Intermediate Rash/Hives Verified 02/15/18 18:13 Penicillins Allergy Intermediate Rash/Hives Verified 02/15/18 18:13 clarithromycin [From Biaxin] Allergy Rash/Hives Verified 02/15/18 18:13 Review of Systems ROS Statement: Those systems with pertinent positive or pertinent negative responses have been documented in the HPI. ROS Other: All systems not noted in ROS Statement are negative. Past Medical History Past Medical History: Asthma, Chest Pain / Angina, GERD/Reflux, Musculoskeletal Disorder, Syncope Additional Past Medical History / Comment(s): CHILDHOOD ASTHMA; Seasonal Allergies; HX PANCREATITIS; HX LT ANKLE FX, "POPS" OUT OF PLACE OCC; C/O FREQ PALPITATIONS, GETS CP, POTS, POCS; OPTIC NERVE PRESSURE/UNKNOWN CAUSE History of Any Multi-Drug Resistant Organisms: MRSA Date of last positivie culture/infection: 2014 MDRO Source:: left foot Past Surgical History: No Surgical Hx Reported Additional Past Surgical History / Comment(s): WISDOM TEETH EXTRACTED; PAIN PROCEURES Past Anesthesia/Blood Transfusion Reactions: Motion Sickness Past Psychological History: Anxiety, Depression, Panic Disorder, PTSD Smoking Status: Current every day smoker Past Alcohol Use History: None Reported Past Drug Use History: None Reported - Past Family History Mother Family Medical History: No Reported History General Exam - General Exam Comments Initial Comments: 22-year-old female. Alert. No distress. Patient is morbidly obese. Limitations: no limitations General appearance: alert, in no apparent distress Head exam: Present: atraumatic, normocephalic, normal inspection Eye exam: Present: normal appearance, PERRL, EOMI. Absent: scleral icterus, conjunctival injection, periorbital swelling ENT exam: Present: normal exam, mucous membranes moist Neck exam: Present: normal inspection. Absent: tenderness, meningismus, lymphadenopathy Respiratory exam: Present: normal lung sounds bilaterally. Absent: respiratory distress, wheezes, rales, rhonchi, stridor Cardiovascular Exam: Present: regular rate, normal rhythm, normal heart sounds. Absent: systolic murmur, diastolic murmur, rubs, gallop, clicks GI/Abdominal exam: Present: soft, tenderness (RUQ pain with inspiration and palpation), normal bowel sounds. Absent: distended, guarding, rebound, rigid Extremities exam: Present: normal inspection, full ROM, normal capillary refill. Absent: tenderness, pedal edema, joint swelling, calf tenderness Back exam: Present: normal inspection Neurological exam: Present: alert, oriented X3, CN II-XII intact Psychiatric exam: Present: normal affect, normal mood Skin exam: Present: warm, dry, intact, normal color. Absent: rash Course Vital Signs 02/15/18 17:38 Temperature 99.5 F Pulse Rate 89 Respiratory 18 Rate Blood Pressure 119/69 O2 Sat by Pulse 98 Oximetry Medical Decision Making - Medical Decision Making 22-year-old female presents with intermittent right upper quadrant pain. Patient was sent here by [employer]. She said multiple workups including HIDA scan yesterday. HIDA scan report shows Patient's signs and performed yesterday shows satisfactory accumulation of tracer by the liver. Gallbladder was not well visualized after 60 minutes becomes visible and 90 minutes. The bowel activity was noted at 20 minutes. Gallbladder ejection fraction was 52% normal range. No evidence of cystic or common bile duct obstruction to suggest acute cholecystitis or gallbladder dyskinesia. This patient's labwork was reviewed and normal. Normal white blood cell count. UA is negative. Patient started complaining of pain. Did a computed tomography scan. Computed tomography scan for any acute process. Patient will be discharged home at this time. Discussed that she should follow-up with surgeon. Discussed that she is to return to emergency department if any alarming signs or symptoms occur. We' ll discharge her with nausea medicine. - Lab Data Result diagrams: 02/15/18 18:28 02/15/18 18:28 Lab Results 02/15/18 02/15/18 02/15/18 Range/Units 18:28 18:28 18:28 WBC 12.4 H (4.0-11.0) k/uL RBC 5.29 (3.80-5.40) m/uL Hgb 14.2 (11.4-16.0) gm/dL Hct 41.9 (34.0-46.0) % MCV 79.1 L (80.0-100.0) fL MCH 26.9 (25.0-35.0) pg MCHC 34.0 (31.0-37.0) g/dL RDW 14.7 (11.5-15.5) % Plt Count 284 (150-450) k/uL Neutrophils % 64 % Lymphocytes % 29 % Monocytes % 4 % Eosinophils % 2 % Basophils % 0 % Neutrophils # 8.0 H (1.3-7.7) k/uL Lymphocytes # 3.6 (1.0-4.8) k/uL Monocytes # 0.5 (0-1.0) k/uL Eosinophils # 0.3 (0-0.7) k/uL Basophils # 0.0 (0-0.2) k/uL APTT 24.1 (22.0-30.0) sec Sodium 143 (137-145) mmol/L Potassium 4.3 (3.5-5.1) mmol/L Chloride 112 H (98-107) mmol/L Carbon Dioxide 16 L (22-30) mmol/L Anion Gap 15 mmol/L BUN 11 (7-17) mg/dL Creatinine 0.66 (0.52-1.04) mg/dL Est GFR (CKD-EPI)AfAm >90 (>60 ml/min/1.73 sqM) Est GFR (CKD-EPI)NonAf >90 (>60 ml/min/1.73 sqM) Glucose 74 (74-99) mg/dL Calcium 9.5 (8.4-10.2) mg/dL Total Bilirubin 0.7 (0.2-1.3) mg/dL AST 28 (14-36) U/L ALT 23 (9-52) U/L Alkaline Phosphatase 74 (38-126) U/L Total Protein 7.2 (6.3-8.2) g/dL Albumin 4.3 (3.5-5.0) g/dL Amylase 58 (30-110) U/L Lipase 204 (23-300) U/L Urine Color Urine Appearance (Clear) Urine pH (5.0-8.0) Ur Specific Buna (1.001-1.035) Urine Protein (Negative) Urine Glucose (UA) (Negative) Urine Ketones (Negative) Urine Blood (Negative) Urine Nitrite (Negative) Urine Bilirubin (Negative) Urine Urobilinogen (<2.0) mg/dL Ur Leukocyte Esterase (Negative) Urine HCG, Qual (Not Detectd) 02/15/18 02/15/18 Range/Units 18:28 18:28 WBC (4.0-11.0) k/uL RBC (3.80-5.40) m/uL Hgb (11.4-16.0) gm/dL Hct (34.0-46.0) % MCV (80.0-100.0) fL MCH (25.0-35.0) pg MCHC (31.0-37.0) g/dL RDW (11.5-15.5) % Plt Count (150-450) k/uL Neutrophils % % Lymphocytes % % Monocytes % % Eosinophils % % Basophils % % Neutrophils # (1.3-7.7) k/uL Lymphocytes # (1.0-4.8) k/uL Monocytes # (0-1.0) k/uL Eosinophils # (0-0.7) k/uL Basophils # (0-0.2) k/uL APTT (22.0-30.0) sec Sodium (137-145) mmol/L Potassium (3.5-5.1) mmol/L Chloride (98-107) mmol/L Carbon Dioxide (22-30) mmol/L Anion Gap mmol/L BUN (7-17) mg/dL Creatinine (0.52-1.04) mg/dL Est GFR (CKD-EPI)AfAm (>60 ml/min/1.73 sqM) Est GFR (CKD-EPI)NonAf (>60 ml/min/1.73 sqM) Glucose (74-99) mg/dL Calcium (8.4-10.2) mg/dL Total Bilirubin (0.2-1.3) mg/dL AST (14-36) U/L ALT (9-52) U/L Alkaline Phosphatase (38-126) U/L Total Protein (6.3-8.2) g/dL Albumin (3.5-5.0) g/dL Amylase (30-110) U/L Lipase (23-300) U/L Urine Color Yellow Urine Appearance Clear (Clear) Urine pH 5.5 (5.0-8.0) Ur Specific Buna 1.017 (1.001-1.035) Urine Protein Negative (Negative) Urine Glucose (UA) Negative (Negative) Urine Ketones Negative (Negative) Urine Blood Negative (Negative) Urine Nitrite Negative (Negative) Urine Bilirubin Negative (Negative) Urine Urobilinogen <2.0 (<2.0) mg/dL Ur Leukocyte Esterase Negative (Negative) Urine HCG, Qual Not Detected (Not Detectd) - Radiology Data Radiology results: report reviewed CT abdomen and pelvis is negative for any acute process. Decreased in size of pericecal lymph nodes compared to old exam. Disposition Clinical Impression: Colicky RUQ abdominal pain Disposition: HOME SELF-CARE Condition: Good Instructions: Abdominal Pain (ED) Additional Instructions: Patient has a follow-up with primary care provider and surgeon. Use nausea medicine as directed. Clear liquid diet. Prescriptions: Ondansetron Odt [Zofran Odt] 4 mg PO Q8HR PRN #12 tab PRN Reason: Nausea Is patient prescribed a controlled substance at d/c from ED?: No If prescribed controlled substance>3 days was MAPS reviewed?: No When asked, does pt state using other controlled substances?: No Referrals: Elizabeth Dumont MD [Primary Care Provider] - 1-2 days Ken Mcguire MD [STAFF PHYSICIAN] - 1-2 days Time of Disposition: 20:17
[2018-02-15 18:38] LABS: Appearance,Urine Clear (Clear); Basophils % (A) 0 %; Bilirubin,Urine Negative (Negative); Blood,Urine Negative (Negative); Color,Urine Yellow; Eosinophils # (A) 0.3 k/uL (0-0.7); Eosinophils % (A) 2 %; Glucose,Urine (UA) Negative (Negative); HCT 41.9 % (34.0-46.0); HGB 14.2 gm/dL (11.4-16.0); Ketones,Urine Negative (Negative); Leukocyte Esterase,Urine Negative (Negative); Lymphocytes # (A) 3.6 k/uL (1.0-4.8); Lymphocytes % (A) 29 %; MCH 26.9 pg (25.0-35.0); MCV 79.1 fL (80.0-100.0); Mean Platelet Volume 7.1; Monocytes # (A) 0.5 k/uL (0-1.0); Monocytes % (A) 4 %; Neutrophils % (A) 64 %; Nitrite,Urine Negative (Negative); PH, Urine 5.5 (5.0-8.0); Platelet Count 284 k/uL (150-450); Protein,Urine Negative (Negative); RBC 5.29 m/uL (3.80-5.40); RDW 14.7 % (11.5-15.5); Specific Gravity,Urine 1.017 (1.001-1.035); Urobilinogen,Urine <2.0 mg/dL (<2.0); WBC 12.4 k/uL (4.0-11.0)
[2018-02-15 18:46] LABS: ALT 23 U/L (9-52); AST 28 U/L (14-36); Albumin 4.3 g/dL (3.5-5.0); Alkaline Phosphatase 74 U/L (38-126); Amylase 58 U/L (30-110); Anion Gap 15 mmol/L; Blood Urea Nitrogen 11 mg/dL (7-17); Calcium 9.5 mg/dL (8.4-10.2); Carbon Dioxide 16 mmol/L (22-30); Chloride 112 mmol/L (98-107); Glucose 74 mg/dL (74-99); Lipase 204 U/L (23-300); Potassium 4.3 mmol/L (3.5-5.1); Sodium 143 mmol/L (137-145); Total Bilirubin 0.7 mg/dL (0.2-1.3); Total Protein 7.2 g/dL (6.3-8.2)
--- NOTE | 2018-02-15 18:57 | XR ---
EXAMINATION TYPE: XR KUB DATE OF EXAM: 02/15/2018 COMPARISON: 08/25/2016 HISTORY: Pain TECHNIQUE: 2 views FINDINGS: There is no sign of intestinal obstruction or pneumoperitoneum. Fecal pattern is normal. Nila ng bases are clear. There are no pathologic calcifications. IMPRESSION: Nonacute abdomen. No change.
[2018-02-15] MEDS ORDERED: RX INFO: IV CONTRAST WAS GIVEN 1 EACH MISC MISCELLANE PRN (19:13)
--- NOTE | 2018-02-15 20:13 | CT ---
EXAMINATION TYPE: CT abdomen pelvis w con DATE OF EXAM: 02/15/2018 COMPARISON: 03/11/2015 HISTORY: RUQ abd pain, nausea, vomiting, and diarrhea CT DLP: 2407.7 mGycm Automated exposure control for dose reduction was used. TECHNIQUE: Helical acquisition of images was performed from the lung bases through the pelvis. CONTRAST: Performed without Oral Contrast and with IV Contrast, patient injected with 100ml mL of Isovue 300. FINDINGS: Lung bases are clear. There is no pleural effusion. Heart size is normal. Liver spleen pancreas appear normal. Bile ducts are not dilated. Gallbladder is contracted. There is no adrenal mass. Kidneys show satisfactory contrast opacification. There is no hydronephrosi s. There is no retroperitoneal adenopathy. There is no ascites. I see no intestinal wall thickening. There are no dilated loops. There is no sign of free air. There is small umbilical hernia that contai ns fat. The appendix appears normal. Bladder distends smoothly. I see no bony destructive process. Ut erus is anteverted. IMPRESSION: NEGATIVE CT SCAN OF THE ABDOMEN AND PELVIS. THERE IS DECREASE IN SIZE OF PERICECAL LYMPH NODES COMPAR ED TO OLD EXAM.
[2018-02-15 20:32] VITALS: BP 125/55; TEMP 99
== END 2018-02-15 20:31 | disposition home or self-care (01) ==
LOC: EC 17:22
DX: R10.11 Right upper quadrant pain (principal); R19.7 Diarrhea, unspecified; J45.909 Unspecified asthma, uncomplicated; K21.9 Gastro-esophageal reflux disease without esophagitis; F41.0 Panic disorder [episodic paroxysmal anxiety]; F32.9 Major depressive disorder, single episode, unspecified; F43.10 Post-traumatic stress disorder, unspecified; F17.200 Nicotine dependence, unspecified, uncomplicated; Z86.14 Personal history of Methicillin resistant Staphylococcus aureus infection; Z79.899 Other long term (current) drug therapy; Z88.0 Allergy status to penicillin; Z88.1 Allergy status to other antibiotic agents; Z88.5 Allergy status to narcotic agent
CPT/HCPCS: 36415; 80053; 82150; 83690; 85025; 85730; 81003; 81025; 74018; 74177; 99285; 96374; 96375 ×2; 96361; J2405; J1885; C9113; Q9967

== ENCOUNTER → 2018-03-02 | Outpatient (CLI) | payer OTHER ==
--- NOTE | 2018-03-02 09:27 | FL ---
ESOPHOGRAM. HISTORY: Dysphagia Esophagram was performed per the air contrast technique. The patient swallowed barium and effervesce nt crystals without difficulty or delay. Esophageal peristalsis and motility appear to be within normal limits. There is no evidence for filling defect, mass or diverticulum. No hiatal hernia seen. Subsequently single contrast cervical esophagram was performed which fails demonstrate evidence for a spiration penetration or mass. IMPRESSION: Unremarkable study.
== END ==
LOC: RADFLWHC 08:31
PROVIDERS: ATTEND Surgery
DX: R10.11 Right upper quadrant pain (principal)
CPT/HCPCS: 74220

== ENCOUNTER 2018-03-09 06:47 | Day surgery (SDC) | payer OTHER ==
[2018-03-04 10:21] VITALS: BMI 49.9
[~2018-03-09 06:47] MED LIST changes: +DEXAMETHASONE SOD PHOSPHATE 10 MG/ML 1 ML VIAL IV ONE; +HEPARIN SODIUM,PORCINE 5,000 UNIT/ML 1 ML VIAL SQ ONE; +ONDANSETRON 4 MG/2 ML VIAL IVP ONE; +ONDANSETRON 4 MG/2 ML VIAL IVP PRN
[2018-03-09] MEDS ORDERED: LIDOCAINE 1%-EPI 1:100,000 30 ML VIAL INTRAARTIC ONE (07:26)
[2018-03-09] MEDS ORDERED: SCOPOLAMINE 1.5MG/72HR PATCH TRANSDERM ONE (07:38)
--- NOTE | 2018-03-09 07:57 | P.GSHP ---
History of Present Illness H&P Date: 03/09/18 Chief Complaint: Umbilical hernia This is a 23-year-old female who has had complaints of umbilical pain. Patient CAT scan showed a small hernia. Patient presents today for laparoscopic robotic assistance repair. Past Medical History Past Medical History: Asthma, Chest Pain / Angina, GERD/Reflux, Musculoskeletal Disorder, Syncope Additional Past Medical History / Comment(s): CHILDHOOD ASTHMA; Seasonal Allergies; HX PANCREATITIS; HX LT ANKLE FX, "POPS" OUT OF PLACE OCC; C/O FREQ PALPITATIONS, GETS CP, POTS, POCS; OPTIC NERVE PRESSURE/UNKNOWN CAUSE, hx 2 seizures last seizure 07/27,iron deficiency History of Any Multi-Drug Resistant Organisms: MRSA Date of last positivie culture/infection: 2014 MDRO Source:: left foot Past Surgical History: No Surgical Hx Reported Additional Past Surgical History / Comment(s): WISDOM TEETH EXTRACTED; PAIN PROCEURES Past Anesthesia/Blood Transfusion Reactions: Motion Sickness Smoking Status: Former smoker - Past Family History Mother Family Medical History: No Reported History Medications and Allergies Home Medications Medication Instructions Recorded Confirmed Type traZODone HCL [Desyrel] 200 mg PO HS 07/17/16 03/09/18 History acetaZOLAMIDE [Diamox] 250 mg PO HS 10/20/17 03/09/18 History Ferrous Sulfate [Iron (65 MG 325 mg PO HS 10/22/17 03/09/18 History Elemental)] Albuterol Inhaler [Ventolin Hfa 1 - 2 puff INHALATION RT-Q6H PRN 02/15/18 History Inhaler] Ondansetron Odt [Zofran Odt] 4 mg PO Q8HR PRN #12 tab 02/15/18 03/09/18 Rx Topiramate [Trokendi Xr] 200 mg PO HS 02/15/18 03/09/18 History acetaZOLAMIDE [Diamox] 125 mg PO HS 02/15/18 03/09/18 History Allergies Allergy/AdvReac Type Severity Reaction Status Date / Time morphine Allergy Intermediate Rash/Hives Verified 03/09/18 07:18 Penicillins Allergy Intermediate Rash/Hives Verified 03/09/18 07:18 clarithromycin [From Biaxin] Allergy Rash/Hives Verified 03/09/18 07:18 Surgical - Exam Vital Signs Temp Pulse Resp BP Pulse Ox 98.6 F 64 16 114/58 97 03/09/18 07:04 03/09/18 07:04 03/09/18 07:04 03/09/18 07:04 03/09/18 07:04 - General well developed, no distress - Eyes PERRL - ENT normal pinna - Neck no masses - Respiratory normal expansion - Cardiovascular Rhythm: regular - Abdomen Abdomen: soft, non tender Hernia: umbilical Assessment and Plan Assessment: Umbilical hernia. We'll perform laparoscopic robotic assistance repair.
[2018-03-09] MEDS ORDERED: HYDROmorphone (PF) 1 MG/ML ONE (08:03)
[2018-03-09] MEDS ORDERED: PROPOFOL 10 MG/ML 20 ML VIAL IV ONE (08:03)
[2018-03-09] MEDS ORDERED: SUCCINYLCHOLINE CHLORIDE VIAL 200 MG/10 ML VIAL IV ONE (08:03)
[2018-03-09] MEDS ORDERED: fentaNYL (PF) 50 MCG/ML 2 ML AMP ONE (08:03)
[2018-03-09] MEDS ORDERED: GLYCOPYRROLATE 0.2 MG/ML 2 ML VIAL ONE (08:03)
[2018-03-09] MEDS ORDERED: NEOSTIGMINE 1 MG/ML 10 ML VIAL ONE (08:03)
[2018-03-09] MEDS ORDERED: LIDOCAINE 1% INJ 10MG/ML (20 ML MDV) ONE (08:03)
[2018-03-09] MEDS ORDERED: MIDAZOLAM 2 MG/2 ML VIAL ONE (08:03)
[2018-03-09] MEDS ORDERED: VECURONIUM 10 MG VIAL IV ONE (08:03)
[2018-03-09] MEDS ORDERED: BUPIVACAINE (PF) 0.5% 30 ML VIAL SQ ONE ×2 (08:32→08:35)
[2018-03-09] MEDS: HYDROmorphone 0.5 MG/0.5 ML SYRINGE IVP PRN ×2 (09:21→10:10)
--- NOTE | 2018-03-09 09:24 | P.OP ---
Date of Procedure: 03/09/18 Preoperative Diagnosis: Umbilical hernia Postoperative Diagnosis: Incarcerated umbilical hernia Procedure(s) Performed: Laparoscopic robotic-assisted repair of incarcerated umbilical hernia Partial omentectomy Anesthesia: DANIELITO Surgeon: Ken Mcguire Estimated Blood Loss (ml): 5 Pathology: other (Incarcerated omentum) Condition: stable Disposition: PACU Description of Procedure: The patient was placed on the operating table in the supine position. He received general anesthesia. His abdomen was prepped and draped usual fashion. Using a 5 mm optical trocar under direct visualization the peritoneal cavity was entered in the left upper quadrant. The abdomen was then insufflated. The laparoscope was placed back into the perineal cavity. Next a 8 mm robotic trocar was placed in the left lower quadrant and a 12 mm robotic trocar was placed in the left lateral position. The original 5 mm trocar was exchanged for a 8 mm robotic trocar. The patient's placed in the left side up position. And the patient was undocked the robot. The umbilical hernia was visualized. Using hook cautery the peritoneum over the umbilical hernia was excised. The incarcerated fat was dissected free using the hook cautery. The fascial opening was repaired using 0V LOC suture. Next a piece of 11 cm round ventral light ST mesh was placed into the. Cavity and secured with 2 OV lock suture. The patient was undocked the robot. The needles were retrieved. The incarcerated fat was removed The fascia of the 12 mm trocar site was closed with 0 Ethibond suture. Skin was closed interrupted 3-0 Monocryl suture. Dermabond dressings was applied. Patient top procedure well and was sent to recovery room stable condition.
[2018-03-09] MEDS ORDERED: MIDAZOLAM 2 MG/2 ML VIAL IVP ONE (09:32)
[2018-03-09 09:34] VITALS: TEMP 97.3
[2018-03-09] MEDS ORDERED: LACTATED RINGERS 1,000 ML IV ONE ×2 (09:51)
[2018-03-09] MEDS ORDERED: HYDROcodone/APAP 7.5-325MG 1 EACH TAB PO ONE (10:31)
[2018-03-09 11:17] VITALS: RESP 18
[2018-03-09 12:01] VITALS: BP 120/70; PULSE 70
== END 2018-03-09 12:12 | disposition home or self-care (01) ==
LOC: OR 06:47
PROVIDERS: ATTEND Surgery
DX: K42.0 Umbilical hernia with obstruction, without gangrene (principal); K85.90 Acute pancreatitis without necrosis or infection, unspecified; E66.01 Morbid (severe) obesity due to excess calories; Z68.42 Body mass index [BMI] 45.0-49.9, adult; J45.909 Unspecified asthma, uncomplicated; I20.9 Angina pectoris, unspecified; Z87.891 Personal history of nicotine dependence; G40.909 Epilepsy, unspecified, not intractable, without status epilepticus; Z79.899 Other long term (current) drug therapy; Z88.1 Allergy status to other antibiotic agents; Z86.14 Personal history of Methicillin resistant Staphylococcus aureus infection; Z88.5 Allergy status to narcotic agent; Z88.0 Allergy status to penicillin
CPT/HCPCS: 49653; S2900; 81025; 88302

== ENCOUNTER 2018-06-06 11:42 | Emergency (ER) | payer OTHER ==
[2018-06-06 11:46] VITALS: RESP 20
--- NOTE | 2018-06-06 12:15 | ED ---
General Adult HPI - General Chief complaint: GI Bleed Stated complaint: Rectal Bleeding-post op Time Seen by Provider: 06/06/18 11:51 Source: patient Mode of arrival: ambulatory Limitations: no limitations - History of Present Illness Initial comments: 23-year-old female status post lumboperitoneal shunt placement one week prior presenting with bright red blood per rectum this morning. Patient states she was having left lower quadrant abdominal pain during the episode. She denies any rectal pain or history of constipation. Patient states left lower quadrant pain is dull achy, constant, not alleviated or exacerbated by anything and had no inciting event. Patient states she had an episode where she had blood on tissue paper before and states they never found a reason for it. She denies ever having a colonoscopy in the past. Does admit to one episode of diverticulitis 8 months prior that was treated with by mouth antibiotics outpatient. She denies any fevers chills, chest pain shortness of breath, diarrhea, constipation, urinary symptoms. Patient states she had the shunt placed for pseudotumor cerebri. Denies any worsening headaches or nausea or vomiting. Patient denies any anal sex or anal foreign bodies. - Related Data Home Medications Medication Instructions Recorded Confirmed traZODone HCL [Desyrel] 200 mg PO HS 07/17/16 06/06/18 Ferrous Sulfate [Iron (65 MG 325 mg PO BID 10/22/17 06/06/18 Elemental)] Albuterol Inhaler [Ventolin Hfa 1 - 2 puff INHALATION RT-Q6H PRN 02/15/18 Inhaler] Topiramate [Trokendi Xr] 200 mg PO HS 02/15/18 06/06/18 HYDROcodone/APAP 5-325MG [[place] 1 tab PO Q6H PRN 06/06/18 06/06/18 5-325] Ibuprofen [Motrin] 800 mg PO Q8H PRN 06/06/18 06/06/18 Previous Rx's Medication Instructions Recorded Docusate [Colace] 100 mg PO BID #20 capsule 03/09/18 Allergies Allergy/AdvReac Type Severity Reaction Status Date / Time morphine Allergy Intermediate Rash/Hives Verified 06/06/18 12:03 Penicillins Allergy Intermediate Rash/Hives Verified 06/06/18 12:03 cephalexin [From Keflex] Allergy RASH/HIVES-SEE Verified 06/06/18 12:03 COMMENTS clarithromycin [From Biaxin] Allergy Rash/Hives Verified 06/06/18 12:03 heparin Allergy RASH/HIVES-SEE Verified 06/06/18 12:03 COMMENTS Review of Systems ROS Statement: Those systems with pertinent positive or pertinent negative responses have been documented in the HPI. Review of Systems Constitutional: Denies fever, chills Eyes: Denies change in vision, Denies pain Ears, nose, mouth, throat: Denies headaches, Denies sore throat Cardiovascular: Denies chest pain. Denies palpitations Respiratory: Denies shortness of breath, Denies cough Gastrointestinal: Positive abdominal pain. Positive rectal bleeding. Denies nausea, vomiting, diarrhea. Genitourinary: Denies hematuria, Denies infections Musculoskeletal: Denies pain, Denies swelling Integumentary: Denies rash Neurological: Denies headache, focal weakness, focal numbness Psychiatric: Denies anxiety, Denies depression Hematologic/Lymphatic: Denies easy bleeding or bruising ROS Other: All systems not noted in ROS Statement are negative. Past Medical History Past Medical History: Asthma, Chest Pain / Angina, GERD/Reflux, Musculoskeletal Disorder, Syncope Additional Past Medical History / Comment(s): CHILDHOOD ASTHMA; Seasonal Allergies; HX PANCREATITIS; HX LT ANKLE FX, "POPS" OUT OF PLACE OCC; C/O FREQ PALPITATIONS, GETS CP, POTS, POCS; OPTIC NERVE PRESSURE/UNKNOWN CAUSE, hx 2 seizures last seizure 07/27,iron deficiency History of Any Multi-Drug Resistant Organisms: MRSA Date of last positivie culture/infection: 2014 MDRO Source:: left foot Past Surgical History: No Surgical Hx Reported Additional Past Surgical History / Comment(s): WISDOM TEETH EXTRACTED; PAIN PROCEURES, lumbar shunt Past Anesthesia/Blood Transfusion Reactions: Motion Sickness Past Psychological History: Anxiety, Depression, Panic Disorder, PTSD Smoking Status: Current every day smoker Past Alcohol Use History: None Reported Past Drug Use History: None Reported - Past Family History Mother Family Medical History: No Reported History General Exam - General Exam Comments Initial Comments: General: Awake, alert, No acute Distress HENT: Normocephalic. Atraumatic Eyes: PERRL. EOMI. No scleral icterus. No injected conjunctiva Neck: Full ROM Chest/Lungs: Clear to auscultation bilaterally. No wheezing, rhonchi, or rales Cardiac: Regular rate, rhythm. No murmurs or rubs Abdomen/GI: Soft, nontender, nondistended. No rebound, guarding, or rigidity. Musculoskeletal: Full ROM : Small rectal tear without bleeding. Skin: Well-healing, C/D/I surgical incision on right flank, and bilateral paralumbar areas. Capillary refill less than 3 seconds. Neurologic: A/Ox3, no weakness, no sensory deficit, no abnormal gait, no coordination deficit Limitations: no limitations Course Vital Signs 06/06/18 06/06/18 11:44 15:42 Temperature 98.3 F 98.4 F Pulse Rate 98 77 Respiratory 20 20 Rate Blood Pressure 139/81 131/66 O2 Sat by Pulse 98 97 Oximetry Medical Decision Making - Medical Decision Making 11-year-old female presenting with rectal bleeding and abdominal pain. Initial exam the patient is awake, alert, no acute distress. VSS. Patient declined anything for pain at this time. Should laboratory workup revealed a mild leukocytosis. Her CT showed a malposition shot with a 4.5 cm CSF fluid collection as well as another fluid collection present along the course of the lumboperitoneal catheter. I spoke with Nighat the nurse for Dr. Guillen states that Dr. Guillen is out of town and unable to be reached and does not have a partner. She recommended the patient transfer to [facility] to be evaluated by neurosurgery. With regard to the patient's rectal bleeding she does have a small rectal tear that could be the cause of her symptoms. Her hemoglobin is stable and she has no symptomatic anemia symptoms. There is no evidence of diverticulitis or colitis seen on her scan. Patient's urine showed some hematuria which denies any history of kidney stones or any urinary symptoms at this time. She denies urinary symptoms and denies gross hematuria. The patient is stable for self transferred to [facility]. I spoke with Dr. Almanzar who accepted the transfer. She'll provided with a disc of her CT. She is currently stable for transfer to [facility]. [id number] Nighat Guillen's RN called back who stated that she spoke with Dr. Guillen who said she would prefer the patient follow-up in the office on with the CT imaging of her [place] that she does not require transfer to [facility]. I discussed this with the patient was agreeable. The patient was transferred home the directions to follow up with her neurosurgeon as well as the GI doctor provided. No further emergent workup indicated. The patient was given return to ED instructions. They were instructed to follow up with their primary care provider. Stable for discharge at this time. - Lab Data Result diagrams: 06/06/18 12:25 06/06/18 12:25 Lab Results 06/06/18 06/06/18 06/06/18 Range/Units 12:25 12:25 12:25 WBC 14.3 H (3.8-10.6) k/uL RBC 4.86 (3.80-5.40) m/uL Hgb 14.0 (11.4-16.0) gm/dL Hct 40.8 (34.0-46.0) % MCV 83.8 (80.0-100.0) fL MCH 28.9 (25.0-35.0) pg MCHC 34.5 (31.0-37.0) g/dL RDW 13.7 (11.5-15.5) % Plt Count 283 (150-450) k/uL Neutrophils % 73 % Lymphocytes % 19 % Monocytes % 4 % Eosinophils % 2 % Basophils % 1 % Neutrophils # 10.4 H (1.3-7.7) k/uL Lymphocytes # 2.7 (1.0-4.8) k/uL Monocytes # 0.6 (0-1.0) k/uL Eosinophils # 0.3 (0-0.7) k/uL Basophils # 0.1 (0-0.2) k/uL PT 9.4 (9.0-12.0) sec INR 0.9 (<1.2) Sodium 140 (137-145) mmol/L Potassium 4.3 (3.5-5.1) mmol/L Chloride 111 H (98-107) mmol/L Carbon Dioxide 19 L (22-30) mmol/L Anion Gap 10 mmol/L BUN 14 (7-17) mg/dL Creatinine 0.70 (0.52-1.04) mg/dL Est GFR (CKD-EPI)AfAm >90 (>60 ml/min/1.73 sqM) Est GFR (CKD-EPI)NonAf >90 (>60 ml/min/1.73 sqM) Glucose 85 (74-99) mg/dL Calcium 9.5 (8.4-10.2) mg/dL HCG, Qual Not Detected Urine Color Urine Appearance (Clear) Urine pH (5.0-8.0) Ur Specific [place] (1.001-1.035) Urine Protein (Negative) Urine Glucose (UA) (Negative) Urine Ketones (Negative) Urine Blood (Negative) Urine Nitrite (Negative) Urine Bilirubin (Negative) Urine Urobilinogen (<2.0) mg/dL Ur Leukocyte Esterase (Negative) Urine RBC (0-5) /hpf Ur Squamous Epith Cells (0-4) /hpf Urine Bacteria (None) /hpf Urine Mucus (None) /hpf Stool Occult Blood (Negative) 06/06/18 06/06/18 Range/Units 12:30 12:30 WBC (3.8-10.6) k/uL RBC (3.80-5.40) m/uL Hgb (11.4-16.0) gm/dL Hct (34.0-46.0) % MCV (80.0-100.0) fL MCH (25.0-35.0) pg MCHC (31.0-37.0) g/dL RDW (11.5-15.5) % Plt Count (150-450) k/uL Neutrophils % % Lymphocytes % % Monocytes % % Eosinophils % % Basophils % % Neutrophils # (1.3-7.7) k/uL Lymphocytes # (1.0-4.8) k/uL Monocytes # (0-1.0) k/uL Eosinophils # (0-0.7) k/uL Basophils # (0-0.2) k/uL PT (9.0-12.0) sec INR (<1.2) Sodium (137-145) mmol/L Potassium (3.5-5.1) mmol/L Chloride (98-107) mmol/L Carbon Dioxide (22-30) mmol/L Anion Gap mmol/L BUN (7-17) mg/dL Creatinine (0.52-1.04) mg/dL Est GFR (CKD-EPI)AfAm (>60 ml/min/1.73 sqM) Est GFR (CKD-EPI)NonAf (>60 ml/min/1.73 sqM) Glucose (74-99) mg/dL Calcium (8.4-10.2) mg/dL HCG, Qual Urine Color Light Yellow Urine Appearance Cloudy H (Clear) Urine pH 7.0 (5.0-8.0) Ur Specific [place] 1.009 (1.001-1.035) Urine Protein Negative (Negative) Urine Glucose (UA) Negative (Negative) Urine Ketones Negative (Negative) Urine Blood Moderate H (Negative) Urine Nitrite Negative (Negative) Urine Bilirubin Negative (Negative) Urine Urobilinogen <2.0 (<2.0) mg/dL Ur Leukocyte Esterase Negative (Negative) Urine RBC <1 (0-5) /hpf Ur Squamous Epith Cells 1 (0-4) /hpf Urine Bacteria Rare H (None) /hpf Urine Mucus Rare H (None) /hpf Stool Occult Blood Positive H (Negative) Disposition Clinical Impression: Shunt malfunction, Rectal bleeding Disposition: HOME SELF-CARE Condition: Good Instructions: Gastrointestinal Bleeding (ED) Additional Instructions: DriCall Dr. Flower for GI follow up. Return if you become dizzy or lightheaded. Is patient prescribed a controlled substance at d/c from ED?: No Referrals: Ru Flower MD [STAFF PHYSICIAN] - 1-2 days
[2018-06-06 12:43] LABS: Appearance,Urine Cloudy (Clear); Bacteria,Urine Rare /hpf; Bilirubin,Urine Negative (Negative); Blood,Urine Moderate (Negative); Color,Urine Light Yellow; Glucose,Urine (UA) Negative (Negative); Ketones,Urine Negative (Negative); Leukocyte Esterase,Urine Negative (Negative); Mucus,Urine Rare /hpf; Nitrite,Urine Negative (Negative); Protein,Urine Negative (Negative); RBC,Urine <1 /hpf (0-5); Specific Gravity,Urine 1.009 (1.001-1.035); Squamous Epithelial Cell,Urine 1 /hpf (0-4); Urobilinogen,Urine <2.0 mg/dL (<2.0)
[2018-06-06 12:45] LABS: Basophils # (A) 0.1 k/uL (0-0.2); Basophils % (A) 1 %; Eosinophils # (A) 0.3 k/uL (0-0.7); Eosinophils % (A) 2 %; HCT 40.8 % (34.0-46.0); Lymphocytes # (A) 2.7 k/uL (1.0-4.8); Lymphocytes % (A) 19 %; MCH 28.9 pg (25.0-35.0); MCHC 34.5 g/dL (31.0-37.0); MCV 83.8 fL (80.0-100.0); Mean Platelet Volume 6.8; Monocytes # (A) 0.6 k/uL (0-1.0); Monocytes % (A) 4 %; Neutrophils # (A) 10.4 k/uL (1.3-7.7); Neutrophils % (A) 73 %; Platelet Count 283 k/uL (150-450); RBC 4.86 m/uL (3.80-5.40); RDW 13.7 % (11.5-15.5); WBC 14.3 k/uL (3.8-10.6)
[2018-06-06 12:50] LABS: INR 0.9 (<1.2); Prothrombin Time 9.4 sec (9.0-12.0)
[2018-06-06 13:01] LABS: HCG,Qualitative Serum Not Detected
[2018-06-06 13:13] LABS: Anion Gap 10 mmol/L; Blood Urea Nitrogen 14 mg/dL (7-17); Calcium 9.5 mg/dL (8.4-10.2); Carbon Dioxide 19 mmol/L (22-30); Chloride 111 mmol/L (98-107); Glucose 85 mg/dL (74-99); Potassium 4.3 mmol/L (3.5-5.1); Sodium 140 mmol/L (137-145)
--- NOTE | 2018-06-06 14:17 | CT ---
EXAMINATION TYPE: CT abdomen pelvis w con DATE OF EXAM: 06/06/2018 COMPARISON: 02/15/2018 HISTORY: 23-year-old female Lumbar shunt placed 1 week ago. Left sided pain TECHNIQUE: Contiguous axial scanning of the abdomen and pelvis following administration of 100 ml Iso nasir 300 IV contrast. Delayed images through the kidneys and coronal/sagittal reconstructions perform ed. CT DLP: 2084 mGycm Automated exposure control for dose reduction was used. FINDINGS: A lumbar shunt catheters present along the right side of the abdomen. Anterior and of the catheter is located in the deep subcutaneous adipose layer word is looped just overlying the superficial fascia. There is a 4.5 cm fluid collection associated with this anterior end of the catheter. The posterior and shows a portable or round device portion in the right paramedian mid back subcutaneous fat. There is some associated, adjacent fluid here measuring 4.4 x 2.3 cm. The posterior end of the catheter ex tends into the lumbar spinal canal via the L2-L4 interlaminar space. The catheter tip terminates at t he S2 level. Liver enlarged at 20.3 cm. Spleen enlarged at 15.2 cm on axial series. Portal venous system is patent . No biliary ductal dilatation. Gallbladder, adrenal glands, kidneys, and pancreas show no gross anomaly. There is a hilar splenule noted. No dilated small bowel, free fluid, or free air. Normal appendix. Rest scattered mild stool. No peric olonic inflammatory change. Bladder partially urine distended. Uterus and ovaries are visualized. No abnormal fluid collection in the pelvis or pelvic lymphadenopathy. Bones: No osseous destructive process. IMPRESSION: 1. A LUMBAR PERITONEAL SHUNT CATHETER IS PRESENT ALONG THE RIGHT SIDE OF THE ABDOMEN. THE PERITONEAL END OF THE CATHETER IS MALPOSITIONED, LOOPED IN THE SUBCUTANEOUS FAT OF THE ANTERIOR ABDOMEN WITH AN ASSOCIATED 4.5 CM FLUID/CSF COLLECTION AT THE CATHETER END. 2. THERE IS A ROUND DEVICE CONTIGUOUS WITH THE CATHETER AT THE RIGHT PARAMEDIAN MID BACK THAT HAS AN ADDITIONAL ADJACENT 4.4 X 2.3 CM CSF OR OTHER FLUID COLLECTION. 3. HEPATOSPLENOMEGALY (LIVER 20.3 CM AND SPLEEN 15.2 CM).
[2018-06-06 15:45] VITALS: BP 131/66; PULSE 77; TEMP 98.4
== END 2018-06-06 16:34 | disposition home or self-care (01) ==
LOC: EC 11:42
DX: T85.615A Breakdown (mechanical) of other nervous system device, implant or graft, initial encounter (principal); K62.5 Hemorrhage of anus and rectum; R31.9 Hematuria, unspecified; J45.909 Unspecified asthma, uncomplicated; F41.9 Anxiety disorder, unspecified; F32.9 Major depressive disorder, single episode, unspecified; F43.10 Post-traumatic stress disorder, unspecified; F17.200 Nicotine dependence, unspecified, uncomplicated; Z98.890 Other specified postprocedural states; Z87.19 Personal history of other diseases of the digestive system; Z86.14 Personal history of Methicillin resistant Staphylococcus aureus infection; Z79.899 Other long term (current) drug therapy; Z88.5 Allergy status to narcotic agent; Z88.0 Allergy status to penicillin; Z88.1 Allergy status to other antibiotic agents; Z88.8 Allergy status to other drugs, medicaments and biological substances; D72.829 Elevated white blood cell count, unspecified; Z53.29 Procedure and treatment not carried out because of patient's decision for other reasons; Y83.8 Other surgical procedures as the cause of abnormal reaction of the patient, or of later complication, without mention of misadventure at the time of the procedure
CPT/HCPCS: 36415; 80048; 85025; 85610; 82272; 81001; 84703; 74177; 99284; Q9967

== ENCOUNTER 2018-07-10 12:13 | Emergency (ER) | payer OTHER ==
--- NOTE | 2018-07-10 12:51 | ED ---
Abdominal Pain HPI - General Chief Complaint: Abdominal Pain Stated Complaint: Post Op pain, Left ovary pain Time Seen by Provider: 07/10/18 12:31 Source: patient Mode of arrival: ambulatory Limitations: no limitations - History of Present Illness Initial Comments: 23-year-old female complaining of left lower quadrant abdominal pain for the last 2-3 days. Patient states it's pretty consistent. Patient states the pain level about a 6 out of 10. Patient denies any dysuria. She denies any abnormal vaginal discharge. Patient denies any change of bowels or diarrhea. No nausea or vomiting. No flank pain. Patient did recently have her shunt for her pseudotumor cerebri replaced one week ago. Patient states that was done on the right side. No fevers. No other abdominal surgical history. Patient does have a history of polycystic ovarian syndrome however patient states she does not have any fifth. Patient has been off her Depo-Provera shot for a few months patient is now and want to get . Patient states her last intercourse was over a month ago. No hematuria. MD Complaint: abdominal pain (LLQ) -: days(s) (2-3) Location: LLQ Radiation: none Migration to: no migration Severity scale (1-10): 6 Quality: cramping, fullness Consistency: intermittent Improves With: nothing Worsens With: nothing Associated Symptoms: denies other symptoms - Related Data LMP (females 10-50): other Patient : Yes Home Medications Medication Instructions Recorded Confirmed traZODone HCL [Desyrel] 200 mg PO HS 07/17/16 06/06/18 Ferrous Sulfate [Iron (65 MG 325 mg PO BID 10/22/17 06/06/18 Elemental)] Albuterol Inhaler [Ventolin Hfa 1 - 2 puff INHALATION RT-Q6H PRN 02/15/18 Inhaler] Topiramate [Trokendi Xr] 200 mg PO HS 02/15/18 06/06/18 HYDROcodone/APAP 5-325MG [[place] 1 tab PO Q6H PRN 06/06/18 06/06/18 5-325] Ibuprofen [Motrin] 800 mg PO Q8H PRN 06/06/18 06/06/18 Pnv No.95/Ferrous Fum/Folic AC 1 tab PO DAILY 07/10/18 07/10/18 [ Multivitamin Tablet] Previous Rx's Medication Instructions Recorded Docusate [Colace] 100 mg PO BID #20 capsule 03/09/18 Allergies Allergy/AdvReac Type Severity Reaction Status Date / Time morphine Allergy Intermediate Rash/Hives Verified 07/10/18 12:24 Penicillins Allergy Intermediate Rash/Hives Verified 07/10/18 12:24 cephalexin [From Keflex] Allergy RASH/HIVES-SEE Verified 07/10/18 12:24 COMMENTS clarithromycin [From Biaxin] Allergy Rash/Hives Verified 07/10/18 12:24 heparin Allergy RASH/HIVES-SEE Verified 07/10/18 12:24 COMMENTS Review of Systems ROS Statement: Those systems with pertinent positive or pertinent negative responses have been documented in the HPI. ROS Other: All systems not noted in ROS Statement are negative. Constitutional: Denies: fever Respiratory: Denies: cough Cardiovascular: Denies: chest pain Endocrine: Denies: fatigue Gastrointestinal: Reports: abdominal pain (llq). Denies: nausea, vomiting, diarrhea Genitourinary: Reports: abnormal menses. Denies: urgency, dysuria, frequency, hematuria Neurological: Denies: headache Past Medical History Past Medical History: Asthma, Chest Pain / Angina, GERD/Reflux, Musculoskeletal Disorder, Syncope Additional Past Medical History / Comment(s): CHILDHOOD ASTHMA; Seasonal Allergies; HX PANCREATITIS; HX LT ANKLE FX, "POPS" OUT OF PLACE OCC; C/O FREQ PALPITATIONS, GETS CP, POTS, POCS; OPTIC NERVE PRESSURE/UNKNOWN CAUSE, hx 2 seizures last seizure 07/27,iron deficiency History of Any Multi-Drug Resistant Organisms: MRSA Date of last positivie culture/infection: 2014 MDRO Source:: left foot Past Surgical History: No Surgical Hx Reported Additional Past Surgical History / Comment(s): WISDOM TEETH EXTRACTED; PAIN PROCEURES, lumbar shunt Past Anesthesia/Blood Transfusion Reactions: Motion Sickness Past Psychological History: Anxiety, Depression, Panic Disorder, PTSD Smoking Status: Current every day smoker Past Alcohol Use History: None Reported Past Drug Use History: None Reported - Past Family History Mother Family Medical History: No Reported History General Exam Limitations: no limitations General appearance: alert, in no apparent distress Head exam: Present: atraumatic, normocephalic, normal inspection Eye exam: Present: normal appearance, PERRL, EOMI. Absent: scleral icterus, conjunctival injection, periorbital swelling ENT exam: Present: normal exam, mucous membranes moist Respiratory exam: Present: normal lung sounds bilaterally. Absent: respiratory distress, wheezes, rales, rhonchi, stridor Cardiovascular Exam: Present: regular rate, normal rhythm, normal heart sounds. Absent: systolic murmur, diastolic murmur, rubs, gallop, clicks GI/Abdominal exam: Present: soft, tenderness (LLQ), normal bowel sounds. Absent : distended, guarding, rebound, rigid Neurological exam: Present: alert, oriented X3, CN II-XII intact Psychiatric exam: Present: normal affect, normal mood Skin exam: Present: warm, dry, intact, normal color. Absent: rash Course Vital Signs 07/10/18 07/10/18 12:21 15:01 Temperature 98.2 F 98.4 F Pulse Rate 80 82 Respiratory 18 16 Rate Blood Pressure 103/59 111/55 O2 Sat by Pulse 95 100 Oximetry Medical Decision Making - Medical Decision Making reviewed CT with dr. gould and showing a possible abdominal abscess infection along with catheter being misplaced. patient will be being transferred to [facility]/ Dr. De Leon will be accepting the patient at the emergency room. Dr. Guillen is the surgeon patient has seen. We will place patient on IV dose of clindamycin along with obtaining blood cultures. Patient be transferred down to [place] - Lab Data Result diagrams: 07/10/18 12:57 07/10/18 12:57 Lab Results 07/10/18 07/10/18 07/10/18 Range/Units 12:57 12:57 13:36 WBC 12.0 H (3.8-10.6) k/uL RBC 4.65 (3.80-5.40) m/uL Hgb 13.5 (11.4-16.0) gm/dL Hct 38.9 (34.0-46.0) % MCV 83.7 D (80.0-100.0) fL MCH 29.0 (25.0-35.0) pg MCHC 34.6 (31.0-37.0) g/dL RDW 13.6 (11.5-15.5) % Plt Count 255 (150-450) k/uL Neutrophils % 70 % Lymphocytes % 21 % Monocytes % 5 % Eosinophils % 3 % Basophils % 1 % Neutrophils # 8.3 H (1.3-7.7) k/uL Lymphocytes # 2.6 (1.0-4.8) k/uL Monocytes # 0.6 (0-1.0) k/uL Eosinophils # 0.4 (0-0.7) k/uL Basophils # 0.1 (0-0.2) k/uL Sodium 141 (137-145) mmol/L Potassium 4.4 (3.5-5.1) mmol/L Chloride 110 H (98-107) mmol/L Carbon Dioxide 21 L (22-30) mmol/L Anion Gap 10 mmol/L BUN 11 (7-17) mg/dL Creatinine 0.69 (0.52-1.04) mg/dL Est GFR (CKD-EPI)AfAm >90 (>60 ml/min/1.73 sqM) Est GFR (CKD-EPI)NonAf >90 (>60 ml/min/1.73 sqM) Glucose 84 (74-99) mg/dL Calcium 9.4 (8.4-10.2) mg/dL Total Bilirubin 0.4 (0.2-1.3) mg/dL AST 27 (14-36) U/L ALT 41 (9-52) U/L Alkaline Phosphatase 71 (38-126) U/L Total Protein 6.8 (6.3-8.2) g/dL Albumin 3.8 (3.5-5.0) g/dL Urine Color Urine Appearance (Clear) Urine pH (5.0-8.0) Ur Specific [place] (1.001-1.035) Urine Protein (Negative) Urine Glucose (UA) (Negative) Urine Ketones (Negative) Urine Blood (Negative) Urine Nitrite (Negative) Urine Bilirubin (Negative) Urine Urobilinogen (<2.0) mg/dL Ur Leukocyte Esterase (Negative) Ur Squamous Epith Cells (0-4) /hpf Amorphous Sediment (None) /hpf Urine HCG, Qual Not Detected (Not Detectd) 07/10/18 Range/Units 13:36 WBC (3.8-10.6) k/uL RBC (3.80-5.40) m/uL Hgb (11.4-16.0) gm/dL Hct (34.0-46.0) % MCV (80.0-100.0) fL MCH (25.0-35.0) pg MCHC (31.0-37.0) g/dL RDW (11.5-15.5) % Plt Count (150-450) k/uL Neutrophils % % Lymphocytes % % Monocytes % % Eosinophils % % Basophils % % Neutrophils # (1.3-7.7) k/uL Lymphocytes # (1.0-4.8) k/uL Monocytes # (0-1.0) k/uL Eosinophils # (0-0.7) k/uL Basophils # (0-0.2) k/uL Sodium (137-145) mmol/L Potassium (3.5-5.1) mmol/L Chloride (98-107) mmol/L Carbon Dioxide (22-30) mmol/L Anion Gap mmol/L BUN (7-17) mg/dL Creatinine (0.52-1.04) mg/dL Est GFR (CKD-EPI)AfAm (>60 ml/min/1.73 sqM) Est GFR (CKD-EPI)NonAf (>60 ml/min/1.73 sqM) Glucose (74-99) mg/dL Calcium (8.4-10.2) mg/dL Total Bilirubin (0.2-1.3) mg/dL AST (14-36) U/L ALT (9-52) U/L Alkaline Phosphatase (38-126) U/L Total Protein (6.3-8.2) g/dL Albumin (3.5-5.0) g/dL Urine Color Yellow Urine Appearance Cloudy H (Clear) Urine pH 7.5 (5.0-8.0) Ur Specific [place] 1.013 (1.001-1.035) Urine Protein Negative (Negative) Urine Glucose (UA) Negative (Negative) Urine Ketones Negative (Negative) Urine Blood Negative (Negative) Urine Nitrite Negative (Negative) Urine Bilirubin Negative (Negative) Urine Urobilinogen <2.0 (<2.0) mg/dL Ur Leukocyte Esterase Negative (Negative) Ur Squamous Epith Cells 2 (0-4) /hpf Amorphous Sediment Moderate H (None) /hpf Urine HCG, Qual (Not Detectd) Disposition Clinical Impression: Acute abdomen, Abdominal abscess, Shunt malfunction, Abdominal pain Disposition: OTHER INSTITUTION NOT DEFINED Condition: Good Instructions: Abscess (ED), Abdominal Pain (ED) Is patient prescribed a controlled substance at d/c from ED?: No Referrals: Elizabeth Dumont MD [Primary Care Provider] - 1-2 days Time of Disposition: 15:38 - Out of Hospital Transfer - Req. Specs Out of Hospital Transfer - Requested Specifics: Other Emergency Center (Dr. Haley Chairez)
[2018-07-10 13:37] LABS: Basophils # (A) 0.1 k/uL (0-0.2); Basophils % (A) 1 %; Eosinophils # (A) 0.4 k/uL (0-0.7); Eosinophils % (A) 3 %; HCT 38.9 % (34.0-46.0); HGB 13.5 gm/dL (11.4-16.0); Lymphocytes # (A) 2.6 k/uL (1.0-4.8); Lymphocytes % (A) 21 %; MCHC 34.6 g/dL (31.0-37.0); Mean Platelet Volume 6.6; Monocytes # (A) 0.6 k/uL (0-1.0); Monocytes % (A) 5 %; Neutrophils # (A) 8.3 k/uL (1.3-7.7); Neutrophils % (A) 70 %; Platelet Count 255 k/uL (150-450); RBC 4.65 m/uL (3.80-5.40); RDW 13.6 % (11.5-15.5)
[2018-07-10 13:38] LABS: MCV 83.7 fL (80.0-100.0)
[2018-07-10 13:39] LABS: ALT 41 U/L (9-52); AST 27 U/L (14-36); Albumin 3.8 g/dL (3.5-5.0); Alkaline Phosphatase 71 U/L (38-126); Anion Gap 10 mmol/L; Blood Urea Nitrogen 11 mg/dL (7-17); Calcium 9.4 mg/dL (8.4-10.2); Carbon Dioxide 21 mmol/L (22-30); Chloride 110 mmol/L (98-107); Glucose 84 mg/dL (74-99); Potassium 4.4 mmol/L (3.5-5.1); Sodium 141 mmol/L (137-145); Total Bilirubin 0.4 mg/dL (0.2-1.3); Total Protein 6.8 g/dL (6.3-8.2)
[2018-07-10 13:51] LABS: Amorphous Sediment,Urine Moderate /hpf; Appearance,Urine Cloudy (Clear); Bilirubin,Urine Negative (Negative); Blood,Urine Negative (Negative); Color,Urine Yellow; Glucose,Urine (UA) Negative (Negative); Ketones,Urine Negative (Negative); Leukocyte Esterase,Urine Negative (Negative); Nitrite,Urine Negative (Negative); PH, Urine 7.5 (5.0-8.0); Protein,Urine Negative (Negative); Specific Gravity,Urine 1.013 (1.001-1.035); Squamous Epithelial Cell,Urine 2 /hpf (0-4); Urobilinogen,Urine <2.0 mg/dL (<2.0)
--- NOTE | 2018-07-10 14:42 | CT ---
EXAMINATION TYPE: CT abdomen pelvis w con DATE OF EXAM: 07/10/2018 COMPARISON: 06/06/2018 HISTORY: Pain CT DLP: 2582.8 mGycm Automated exposure control for dose reduction was used. TECHNIQUE: Helical acquisition of images was performed from the lung bases through the pelvis. CONTRAST: Performed without Oral Contrast and with IV Contrast, patient injected with 100 mL of Isovue 300. FINDINGS: Lung bases are clear. There is no pleural effusion. Heart size is normal. Stomach appears normal. There is anterior upper abdominal catheter that is in the upper anterior pushpa toneal cavity and extends over the right side of the mid abdomen. There is subcutaneous fat edema wit h fluid and air bubbles over the right anterior mid abdomen. There is metallic density and apparent w ires over the posterior mid lumbar spine on the right side. Entire subcutaneous fat is not included on the exam due to patient's size. Liver spleen pancreas gallbladder appear normal. Bile ducts are not dilated. There is no adrenal mass . Kidneys have normal size and contour. There is normal contrast opacification of the kidneys. There is no hydronephrosis. There is no retroperitoneal adenopathy. There is no ascites. There is no sign o f a thickened appendix. Bladder distends smoothly. There is no free fluid in the pelvis. There is no inguinal hernia or adenopathy. There is no mesenteric adenopathy or edema. Lumbar spine is intact. Jarad ny pelvis appears intact. IMPRESSION: THERE ARE INFLAMMATORY CHANGES WITH A 5 X 2.5 CM FLUID COLLECTION AND FLUID LEVEL IN THE SUBCUTANEOUS FAT OVER THE RIGHT ANTERIOR ABDOMEN. THIS COULD BE AN ABSCESS. THERE IS A 4.5 CM CYSTIC FLUID COLLEC TION IN THIS AREA WITH A CATHETER ON PREVIOUS EXAM OF 06/06/2018. THERE IS A NEW INTRA-ABDOMINAL ANTER IOR CATHETER. I SEE NO ACUTE ABNORMALITY WITHIN THE ABDOMEN AND PELVIS. THE EPIDURAL CATHETER THAT WAS PRESENT ON PREVIOUS EXAM IS NOW ALL WITHIN THE SUBCUTANEOUS FAT OVER T HE LOWER LUMBAR SPINE POSTERIORLY. CATHETER IS NOT IN THE SPINAL CANAL.
[2018-07-10 15:03] VITALS: TEMP 98.4
[2018-07-10] MEDS ORDERED: CLINDAMYCIN 600 MG in DEXTROSE 5% IN WATER 50 ML IVPB STA ×2 (15:24)
[2018-07-10 16:59] VITALS: BP 116/59; PULSE 89; RESP 18
== END 2018-07-10 17:05 | disposition short-term general hospital (02) ==
LOC: EC 12:13
DX: O9A.211 Injury, poisoning and certain other consequences of external causes complicating pregnancy, first trimester (principal); T85.02XA Displacement of ventricular intracranial (communicating) shunt, initial encounter; O99.711 Diseases of the skin and subcutaneous tissue complicating pregnancy, first trimester; L02.211 Cutaneous abscess of abdominal wall; O99.511 Diseases of the respiratory system complicating pregnancy, first trimester; J45.909 Unspecified asthma, uncomplicated; O99.281 Endocrine, nutritional and metabolic diseases complicating pregnancy, first trimester; E61.1 Iron deficiency; O99.341 Other mental disorders complicating pregnancy, first trimester; F32.9 Major depressive disorder, single episode, unspecified; F41.9 Anxiety disorder, unspecified; O99.331 Smoking (tobacco) complicating pregnancy, first trimester; F17.200 Nicotine dependence, unspecified, uncomplicated; Z88.0 Allergy status to penicillin; Z88.1 Allergy status to other antibiotic agents; Z88.5 Allergy status to narcotic agent; Z88.8 Allergy status to other drugs, medicaments and biological substances; Z86.69 Personal history of other diseases of the nervous system and sense organs; Z79.899 Other long term (current) drug therapy; Z86.14 Personal history of Methicillin resistant Staphylococcus aureus infection; Z3A.01 Less than 8 weeks gestation of pregnancy
CPT/HCPCS: 36415; 80053; 85025; 81001; 81025; 87040; 74177; 99285; 96365; Q9967

== ENCOUNTER 2018-09-19 15:09 | Emergency (ER) | payer OTHER ==
[2018-09-19 16:20] VITALS: BP 129/73; PULSE 100; RESP 18; TEMP 99.6
[2018-09-19] MEDS ORDERED: DEXAMETHASONE SOD PHOSPHATE 10 MG/ML 1 ML VIAL PO STA (17:51)
--- NOTE | 2018-09-19 19:05 | ED ---
ENT HPI - General Chief complaint: ENT Stated complaint: Sore throat Time Seen by Provider: 09/19/18 17:35 Source: patient Mode of arrival: ambulatory Limitations: no limitations - History of Present Illness Initial comments: 23 you female with no significant PMH presenting today for chief complaint of sore throat 2 days. Patient states that she began experiencing a sore throat yesterday morning. She states that has been worsening since. Patient admits to noticing throat erythema upon inspection. Patient admits to pain with swallowing, patient denies any difficulty breathing or swallowing (I clearified what patient had meant upon triage assessment). Patient denies any neck swelling, stridor. Patient denies any cough. Patient states she has felt as though she had a fever however has not recorded her temperature. Patient admits of body aches. Patient denies diarrhea, abdominal pain, nausea, vomiting. Upon arrival patient is well-appearing, nontoxic. Remainder of ROS negative, patient denies any recent shortness of breath, chest pain, back pain, abdominal pain, numbness or tingling, dysuria or hematuria, constipation, headaches or visual changes, or any other complaints. - Related Data Home Medications Medication Instructions Recorded Confirmed traZODone HCL [Desyrel] 200 mg PO HS 07/17/16 09/19/18 Ferrous Sulfate [Iron (65 MG 325 mg PO BID 10/22/17 09/19/18 Elemental)] Albuterol Inhaler [Ventolin Hfa 1 - 2 puff INHALATION RT-Q6H PRN 02/15/18 Inhaler] Pnv No.95/Ferrous Fum/Folic AC 1 tab PO DAILY 07/10/18 09/19/18 [ Multivitamin Tablet] Aspirin EC [Ecotrin Low Dose] 81 mg PO DAILY 09/19/18 09/19/18 Levothyroxine Sodium 25 mcg PO DAILY 09/19/18 09/19/18 Previous Rx's Medication Instructions Recorded Clindamycin [Cleocin] 300 mg PO TID 10 Days #60 capsule 09/19/18 predniSONE 20 mg PO DAILY 4 Days #4 tab 09/19/18 Allergies Allergy/AdvReac Type Severity Reaction Status Date / Time morphine Allergy Intermediate Rash/Hives Verified 09/19/18 17:37 Penicillins Allergy Intermediate Rash/Hives Verified 09/19/18 17:37 cephalexin [From Keflex] Allergy RASH/HIVES-SEE Verified 09/19/18 17:37 COMMENTS clarithromycin [From Biaxin] Allergy Rash/Hives Verified 09/19/18 17:37 heparin Allergy RASH/HIVES-SEE Verified 09/19/18 17:37 COMMENTS Review of Systems ROS Statement: Those systems with pertinent positive or pertinent negative responses have been documented in the HPI. ROS Other: All systems not noted in ROS Statement are negative. Constitutional: Denies: fever, chills ENT: Reports: throat pain. Denies: ear pain Respiratory: Denies: cough, dyspnea, wheezes, hemoptysis, stridor Cardiovascular: Denies: chest pain, palpitations Gastrointestinal: Denies: as per HPI, abdominal pain, nausea, vomiting, diarrhea , constipation, hematemesis, melena, hematochezia Genitourinary: Denies: urgency, dysuria, frequency, hematuria Skin: Denies: rash, lesions Neurological: Denies: headache, weakness, numbness, paresthesias, confusion, abnormal gait Past Medical History Past Medical History: Asthma, Chest Pain / Angina, GERD/Reflux, Musculoskeletal Disorder, Syncope Additional Past Medical History / Comment(s): CHILDHOOD ASTHMA; Seasonal Allergies; HX PANCREATITIS; HX LT ANKLE FX, "POPS" OUT OF PLACE OCC; C/O FREQ PALPITATIONS, GETS CP, POTS, POCS; OPTIC NERVE PRESSURE/UNKNOWN CAUSE, hx 2 seizures last seizure 07/27,iron deficiency History of Any Multi-Drug Resistant Organisms: MRSA Date of last positivie culture/infection: 2014 MDRO Source:: left foot Past Surgical History: No Surgical Hx Reported Additional Past Surgical History / Comment(s): WISDOM TEETH EXTRACTED; PAIN PROCEURES, lumbar shunt Past Anesthesia/Blood Transfusion Reactions: Motion Sickness Past Psychological History: Anxiety, Depression, Panic Disorder, PTSD Smoking Status: Former smoker Past Alcohol Use History: Occasional Past Drug Use History: None Reported - Past Family History Mother Family Medical History: No Reported History General Exam - General Exam Comments Initial Comments: General: The patient is awake and alert, in no distress, and does not appear acutely ill. Eye: Pupils are equal, round and reactive to light, extra-ocular movements are intact. No nystagmus. There is normal conjunctiva bilaterally. No signs of icterus. Ears, nose, mouth and throat: There are moist mucous membranes and no oral lesions. Oropharynx is erythematous, there is tonsillar enlargement exudates and lesions. Tonsillar crypts noted. Uvula is midline. No evidence of peritonsillar abscess. Tympanic membranes are within normal limits bilaterally as well as the external auditory canals, there is no erythema edema, effusions retractions or bulging. No tenderness to palpation the mastoid. No rhinorrhea noted. No tenderness to palpation of the sinuses. Neck: The neck is supple, there is no tenderness or JVD. No palpable anterior cervical lymph neuropathy. No neck stiffness or nuchal rigidity noted. Cardiovascular: There is a regular rate and rhythm. No murmur, rub or gallop is appreciated. Respiratory: Lungs are clear to auscultation, respirations are non-labored, breath sounds are equal. No wheezes, stridor, rales, or rhonchi. Gastrointestinal: Soft, non-distended, non-tender abdomen without masses or organomegaly noted. There is no rebound or guarding present. Musculoskeletal: Normal ROM, no tenderness. Strength 5/5. Sensation intact. Pulses equal bilaterally 2+. Neurological: A&O x 3. CN II-XII intact, There are no obvious motor or sensory deficits. Coordination appears grossly intact. Speech is normal. Skin: Skin is warm and dry and no rashes or lesions are noted. Psychiatric: Cooperative, appropriate mood & affect, normal judgment. Limitations: no limitations Course Vital Signs 09/19/18 16:17 Temperature 99.6 F Pulse Rate 100 Respiratory 18 Rate Blood Pressure 129/73 O2 Sat by Pulse 97 Oximetry Medical Decision Making - Medical Decision Making Well-appearing 23-year-old female, nontoxic. Patient has low-grade fever. Oropharynx exam concerning for strep pharyngitis, no signs of peritonsillar abscess, uvula is midline no noted stridor, no hot potato voice. Strep and influenza testing negative. Patient given Decadron, for symptomatic treatment. At this time feel patient clinical findings concerning for bacterial infection , patient will be started on clindamycin given antibiotic ALLERGIES. Case discussed with Dr. Montano who agrees impression and plan. Patient will be discharged with primary care follow-up in the next 1-2 days. Patient is agreeable plan. Return parameters discussed at length the patient who verbalizes understanding. Upon discharge patient denies question. Patient requested work note this was provided. - Lab Data Lab Results 09/19/18 09/19/18 Range/Units 17:40 17:40 Influenza Type A RNA Not Detected (Not Detectd) Influenza Type B (PCR) Not Detected (Not Detectd) Group A Strep Rapid Negative (Negative) Disposition Clinical Impression: Pharyngitis, Tonsillitis Disposition: HOME SELF-CARE Condition: Good Instructions: Pharyngitis (ED) Additional Instructions: Please use medication as discussed. Please follow-up with family doctor in the next 2 days.. Please return to emergency room if the symptoms increase or worsen or for any other concerns. Prescriptions: Clindamycin [Cleocin] 300 mg PO TID 10 Days #60 capsule predniSONE 20 mg PO DAILY 4 Days #4 tab Is patient prescribed a controlled substance at d/c from ED?: No Referrals: Elizabeth Dumont MD [Primary Care Provider] - 1-2 days Time of Disposition: 19:05
== END 2018-09-19 19:15 | disposition home or self-care (01) ==
LOC: EC 15:09
DX: J02.9 Acute pharyngitis, unspecified (principal); J45.909 Unspecified asthma, uncomplicated; F41.0 Panic disorder [episodic paroxysmal anxiety]; F32.9 Major depressive disorder, single episode, unspecified; F43.10 Post-traumatic stress disorder, unspecified; Z86.14 Personal history of Methicillin resistant Staphylococcus aureus infection; Z87.891 Personal history of nicotine dependence; Z79.82 Long term (current) use of aspirin; Z79.899 Other long term (current) drug therapy; Z88.0 Allergy status to penicillin; Z88.1 Allergy status to other antibiotic agents; Z88.5 Allergy status to narcotic agent; Z88.8 Allergy status to other drugs, medicaments and biological substances
CPT/HCPCS: 87081; 87430; 87502; 99283; J1100

== ENCOUNTER 2018-12-14 15:38 | Emergency (ER) | payer OTHER ==
[2018-12-14 15:50] VITALS: BP 141/78; RESP 16; TEMP 98.4
[2018-12-14] MEDS ORDERED: IPRATROPIUM-ALBUTEROL 3 ML NEB INHALATION STA (16:06)
--- NOTE | 2018-12-14 16:23 | ED ---
URI HPI - General Chief Complaint: Upper Respiratory Infection Stated Complaint: Fever/cough Time Seen by Provider: 12/14/18 15:56 Source: patient, RN notes reviewed, old records reviewed Mode of arrival: ambulatory Limitations: no limitations - History of Present Illness Initial Comments: 23-year-old female presents today with complaints of cough congestion shortness of breath. Patient poor she's had a wet cough. Patient states that she is no history of asthma. She is a former smoker. - Related Data Home Medications Medication Instructions Recorded Confirmed traZODone HCL [Desyrel] 200 mg PO HS 07/17/16 12/14/18 Ferrous Sulfate [Iron (65 MG 325 mg PO BID 10/22/17 12/14/18 Elemental)] Albuterol Inhaler [Ventolin Hfa 1 - 2 puff INHALATION RT-Q6H PRN 02/15/18 Inhaler] Pnv No.95/Ferrous Fum/Folic AC 1 tab PO DAILY 07/10/18 12/14/18 [ Multivitamin Tablet] Aspirin EC [Ecotrin Low Dose] 81 mg PO DAILY 09/19/18 12/14/18 Levothyroxine Sodium 25 mcg PO DAILY 09/19/18 12/14/18 metFORMIN HCL [Glucophage] 500 mg PO BID 12/14/18 12/14/18 Previous Rx's Medication Instructions Recorded Albuterol Inhaler [Ventolin Hfa 1 - 2 puff INHALATION RT-Q6H PRN 12/14/18 Inhaler] #1 inhaler Doxycycline [Vibramycin] 100 mg PO BID #14 cap 12/14/18 methylPREDNISolone Dose Pack 4 mg PO DIRECTED #21 package 12/14/18 [Medrol Dose Pack] Allergies Allergy/AdvReac Type Severity Reaction Status Date / Time morphine Allergy Intermediate Rash/Hives Verified 12/14/18 16:09 Penicillins Allergy Intermediate Rash/Hives Verified 12/14/18 16:09 cephalexin [From Keflex] Allergy RASH/HIVES-SEE Verified 12/14/18 16:09 COMMENTS clarithromycin [From Biaxin] Allergy Rash/Hives Verified 12/14/18 16:09 heparin Allergy RASH/HIVES-SEE Verified 12/14/18 16:09 COMMENTS Review of Systems ROS Statement: Those systems with pertinent positive or pertinent negative responses have been documented in the HPI. ROS Other: All systems not noted in ROS Statement are negative. Past Medical History Past Medical History: Asthma, Chest Pain / Angina, GERD/Reflux, Musculoskeletal Disorder, Syncope Additional Past Medical History / Comment(s): CHILDHOOD ASTHMA; Seasonal Allergies; HX PANCREATITIS; HX LT ANKLE FX, "POPS" OUT OF PLACE OCC; C/O FREQ PALPITATIONS, GETS CP, POTS, POCS; OPTIC NERVE PRESSURE/UNKNOWN CAUSE, hx 2 seizures last seizure 07/27,iron deficiency. LP SHUNT History of Any Multi-Drug Resistant Organisms: MRSA Date of last positivie culture/infection: 2014 MDRO Source:: left foot Past Surgical History: No Surgical Hx Reported Additional Past Surgical History / Comment(s): WISDOM TEETH EXTRACTED; PAIN PROCEURES, lumbar shunt Past Anesthesia/Blood Transfusion Reactions: Motion Sickness Past Psychological History: Anxiety, Depression, Panic Disorder, PTSD Smoking Status: Former smoker Past Alcohol Use History: Occasional Past Drug Use History: None Reported - Past Family History Mother Family Medical History: No Reported History General Exam - General Exam Comments Initial Comments: 23 year old female, no distress. Limitations: no limitations General appearance: alert, in no apparent distress Head exam: Present: atraumatic, normocephalic, normal inspection Eye exam: Present: normal appearance, PERRL, EOMI. Absent: scleral icterus, conjunctival injection, periorbital swelling ENT exam: Present: normal exam, mucous membranes moist Neck exam: Present: normal inspection. Absent: tenderness, meningismus, lymphadenopathy Respiratory exam: Present: wheezes, rhonchi. Absent: normal lung sounds bilaterally, respiratory distress, rales, stridor Cardiovascular Exam: Present: regular rate, normal rhythm, normal heart sounds. Absent: systolic murmur, diastolic murmur, rubs, gallop, clicks Back exam: Present: normal inspection Neurological exam: Present: alert Psychiatric exam: Present: normal affect, normal mood Skin exam: Present: warm, dry, intact, normal color. Absent: rash Course Vital Signs 12/14/18 12/14/18 12/14/18 15:45 16:55 17:01 Temperature 98.4 F Pulse Rate 95 92 96 Respiratory 16 Rate Blood Pressure 141/78 O2 Sat by Pulse 98 Oximetry Medical Decision Making - Medical Decision Making Patient 23 year old female with cough and congestion and symptoms for 3 days. She has productive cough. she reported fever. PAtient has negative influenza. She has normal CXR. Patient has been given Duoneb. She has improvement of lungs sounds and feels better. Will DC patient with Rx of steriods and doxycycline for bronchitis. Discussed abx choice due to abx allergies. All questions answered return parameters discussed. - Lab Data Lab Results 12/14/18 Range/Units 16:21 Influenza Type A RNA Not Detected (Not Detectd) Influenza Type B (PCR) Not Detected (Not Detectd) - Radiology Data Radiology results: report reviewed Normal chest x-ray. No change. Disposition Clinical Impression: Bronchitis Disposition: HOME SELF-CARE Condition: Good Instructions (If sedation given, give patient instructions): Acute Bronchitis ( ED) Additional Instructions: Patient advised to have any close follow-up with primary care physician. Patient to return to emergency department if any alarming signs or symptoms occur. Prescriptions: Albuterol Inhaler [Ventolin Hfa Inhaler] 1 - 2 puff INHALATION RT-Q6H PRN #1 inhaler PRN Reason: Shortness Of Breath Doxycycline [Vibramycin] 100 mg PO BID #14 cap methylPREDNISolone Dose Pack [Medrol Dose Pack] 4 mg PO DIRECTED #21 package Is patient prescribed a controlled substance at d/c from ED?: No Referrals: Tam Aggarwal MD [Primary Care Provider] - 1-2 days Time of Disposition: 17:19
--- NOTE | 2018-12-14 16:44 | XR ---
EXAMINATION TYPE: XR chest 2V DATE OF EXAM: 12/14/2018 COMPARISON: 08/05/2016 HISTORY: Fever and cough TECHNIQUE: Frontal and lateral views of the chest are obtained. FINDINGS: Heart and mediastinum are normal. Lungs are clear. Diaphragm is normal. Bony thorax is int act. IMPRESSION: Normal chest. No change.
[2018-12-14 17:02] VITALS: PULSE 96
== END 2018-12-14 18:15 | disposition home or self-care (01) ==
LOC: EC 15:38
DX: J40 Bronchitis, not specified as acute or chronic (principal); F32.9 Major depressive disorder, single episode, unspecified; Z79.82 Long term (current) use of aspirin; Z79.84 Long term (current) use of oral hypoglycemic drugs; Z79.890 Hormone replacement therapy; Z79.899 Other long term (current) drug therapy; Z88.0 Allergy status to penicillin; Z88.1 Allergy status to other antibiotic agents; Z88.5 Allergy status to narcotic agent; Z88.8 Allergy status to other drugs, medicaments and biological substances; Z87.891 Personal history of nicotine dependence
CPT/HCPCS: 71046; 87502; 94640; 99284

== ENCOUNTER 2018-12-26 13:08 | Emergency (ER) | payer OTHER ==
[2018-12-26 13:16] VITALS: RESP 18
[2018-12-26] MEDS ORDERED: diphenhydrAMINE 50 MG/ML 1 ML VIAL IVP STA (14:27)
[2018-12-26] MEDS ORDERED: METOCLOPRAMIDE 5 MG/ML 2 ML VIAL IVP STA (14:27)
[2018-12-26] MEDS ORDERED: KETOROLAC 30 MG/ML 1 ML VIAL IVP STA (14:27)
[2018-12-26] MEDS ORDERED: SODIUM CHLORIDE 0.9% 1,000 ML IV STA (14:27)
--- NOTE | 2018-12-26 14:55 | ED ---
Headache HPI - General Chief Complaint: Headache Stated Complaint: migraine Time Seen by Provider: 12/26/18 13:21 Source: RN notes reviewed, old records reviewed Mode of arrival: ambulatory Limitations: no limitations - History of Present Illness Initial Comments: Patient is a 23-year-old female with history of MILL SET UP shunt presents emergency city with a headache for 4 days. Patient reports she feels like her migraine is consistent with of her previous migraines. Patient denies any fever or chills. She reports that the headache radiates from the front towards the right side of her head. She denies any nausea or vomiting. She denies any abdominal pain. - Related Data Home Medications Medication Instructions Recorded Confirmed traZODone HCL [Desyrel] 200 mg PO HS 07/17/16 12/26/18 Ferrous Sulfate [Iron (65 MG 325 mg PO BID 10/22/17 12/26/18 Elemental)] Pnv No.95/Ferrous Fum/Folic AC 1 tab PO DAILY 07/10/18 12/26/18 [ Multivitamin Tablet] Levothyroxine Sodium 25 mcg PO DAILY 09/19/18 12/26/18 metFORMIN HCL [Glucophage] 500 mg PO BID 12/14/18 12/26/18 Allergies Allergy/AdvReac Type Severity Reaction Status Date / Time morphine Allergy Intermediate Rash/Hives Verified 12/26/18 13:34 Penicillins Allergy Intermediate Rash/Hives Verified 12/26/18 13:34 cephalexin [From Keflex] Allergy RASH/HIVES-SEE Verified 12/26/18 13:34 COMMENTS clarithromycin [From Biaxin] Allergy Rash/Hives Verified 12/26/18 13:34 heparin Allergy RASH/HIVES-SEE Verified 12/26/18 13:34 COMMENTS Review of Systems ROS Statement: Those systems with pertinent positive or pertinent negative responses have been documented in the HPI. ROS Other: All systems not noted in ROS Statement are negative. Past Medical History Past Medical History: Asthma, Chest Pain / Angina, GERD/Reflux, Musculoskeletal Disorder, Syncope Additional Past Medical History / Comment(s): CHILDHOOD ASTHMA; Seasonal Allergies; HX PANCREATITIS; HX LT ANKLE FX, "POPS" OUT OF PLACE OCC; C/O FREQ PALPITATIONS, GETS CP, POTS, POCS; OPTIC NERVE PRESSURE/UNKNOWN CAUSE, hx 2 seizures last seizure 07/27,iron deficiency. LP SHUNT History of Any Multi-Drug Resistant Organisms: MRSA Date of last positivie culture/infection: 2014 MDRO Source:: left foot Past Surgical History: No Surgical Hx Reported Additional Past Surgical History / Comment(s): WISDOM TEETH EXTRACTED; PAIN PROCEURES, lumbar shunt Past Anesthesia/Blood Transfusion Reactions: Motion Sickness Past Psychological History: Anxiety, Depression, Panic Disorder, PTSD Smoking Status: Current every day smoker Past Alcohol Use History: Occasional Past Drug Use History: None Reported - Past Family History Mother Family Medical History: No Reported History General Exam - General Exam Comments Initial Comments: Well-appearing 23-year-old female. Alert and oriented 3. No distress. Limitations: no limitations General appearance: alert, in no apparent distress Head exam: Present: atraumatic, normocephalic, normal inspection Eye exam: Present: normal appearance, PERRL, EOMI. Absent: scleral icterus, conjunctival injection, periorbital swelling ENT exam: Present: normal exam, mucous membranes moist Neck exam: Present: normal inspection. Absent: tenderness, meningismus, lymphadenopathy Respiratory exam: Present: normal lung sounds bilaterally. Absent: respiratory distress, wheezes, rales, rhonchi, stridor Cardiovascular Exam: Present: regular rate, normal rhythm, normal heart sounds. Absent: systolic murmur, diastolic murmur, rubs, gallop, clicks Extremities exam: Present: normal inspection, full ROM, normal capillary refill. Absent: tenderness, pedal edema, joint swelling, calf tenderness Back exam: Present: normal inspection Neurological exam: Present: alert, oriented X3, CN II-XII intact Psychiatric exam: Present: normal affect, normal mood Course Vital Signs 12/26/18 13:13 Temperature 98.2 F Pulse Rate 85 Respiratory 18 Rate Blood Pressure 138/91 O2 Sat by Pulse 96 Oximetry Medical Decision Making - Medical Decision Making Patient is a 23-year-old female presenting to the 4 days of migraine-like headache. Patient was given IV fluids and migraine cocktail. She reports much improvement after medications. She has no neurological deficits. Vital signs are stable. The second Patient will be discharged with close follow-up with PCP and neurologist. Discussed return parameters. - Lab Data Result diagrams: 12/26/18 14:54 12/26/18 14:54 Lab Results 12/26/18 12/26/18 Range/Units 14:54 14:54 WBC 10.1 (3.8-10.6) k/uL RBC 4.94 (3.80-5.40) m/uL Hgb 14.1 (11.4-16.0) gm/dL Hct 42.3 (34.0-46.0) % MCV 85.5 (80.0-100.0) fL MCH 28.6 (25.0-35.0) pg MCHC 33.4 (31.0-37.0) g/dL RDW 13.4 (11.5-15.5) % Plt Count 230 (150-450) k/uL Neutrophils % 68 % Lymphocytes % 24 % Monocytes % 4 % Eosinophils % 3 % Basophils % 1 % Neutrophils # 6.9 (1.3-7.7) k/uL Lymphocytes # 2.4 (1.0-4.8) k/uL Monocytes # 0.4 (0-1.0) k/uL Eosinophils # 0.3 (0-0.7) k/uL Basophils # 0.1 (0-0.2) k/uL Sodium 139 (137-145) mmol/L Potassium 4.5 (3.5-5.1) mmol/L Chloride 106 (98-107) mmol/L Carbon Dioxide 26 (22-30) mmol/L Anion Gap 7 mmol/L BUN 13 (7-17) mg/dL Creatinine 0.64 (0.52-1.04) mg/dL Est GFR (CKD-EPI)AfAm >90 (>60 ml/min/1.73 sqM) Est GFR (CKD-EPI)NonAf >90 (>60 ml/min/1.73 sqM) Glucose 76 (74-99) mg/dL Calcium 9.6 (8.4-10.2) mg/dL Total Bilirubin 0.5 (0.2-1.3) mg/dL AST 31 (14-36) U/L ALT 61 H (9-52) U/L Alkaline Phosphatase 69 (38-126) U/L Total Protein 6.8 (6.3-8.2) g/dL Albumin 3.9 (3.5-5.0) g/dL Disposition Clinical Impression: Migraine Disposition: HOME SELF-CARE Condition: Good Instructions (If sedation given, give patient instructions): Migraine Headache (ED) Additional Instructions: Patient advised to follow-up with your primary care physician. Return to the emergency department if any alarming signs or symptoms occur. Rest, remain hydrated. Use Motrin Tylenol for pain. Recommend following up with her neurologist as well. Is patient prescribed a controlled substance at d/c from ED?: No Referrals: Tam Aggarwal MD [Primary Care Provider] - 1-2 days Time of Disposition: 16:28
[2018-12-26 15:29] LABS: Basophils # (A) 0.1 k/uL (0-0.2); Basophils % (A) 1 %; Eosinophils # (A) 0.3 k/uL (0-0.7); Eosinophils % (A) 3 %; HCT 42.3 % (34.0-46.0); HGB 14.1 gm/dL (11.4-16.0); Lymphocytes # (A) 2.4 k/uL (1.0-4.8); Lymphocytes % (A) 24 %; MCH 28.6 pg (25.0-35.0); MCHC 33.4 g/dL (31.0-37.0); MCV 85.5 fL (80.0-100.0); Mean Platelet Volume 6.7; Monocytes # (A) 0.4 k/uL (0-1.0); Monocytes % (A) 4 %; Neutrophils # (A) 6.9 k/uL (1.3-7.7); Neutrophils % (A) 68 %; Platelet Count 230 k/uL (150-450); RBC 4.94 m/uL (3.80-5.40); RDW 13.4 % (11.5-15.5); WBC 10.1 k/uL (3.8-10.6)
[2018-12-26 15:46] LABS: ALT 61 U/L (9-52); AST 31 U/L (14-36); Albumin 3.9 g/dL (3.5-5.0); Alkaline Phosphatase 69 U/L (38-126); Anion Gap 7 mmol/L; Blood Urea Nitrogen 13 mg/dL (7-17); Calcium 9.6 mg/dL (8.4-10.2); Carbon Dioxide 26 mmol/L (22-30); Chloride 106 mmol/L (98-107); Glucose 76 mg/dL (74-99); Potassium 4.5 mmol/L (3.5-5.1); Sodium 139 mmol/L (137-145); Total Bilirubin 0.5 mg/dL (0.2-1.3); Total Protein 6.8 g/dL (6.3-8.2)
[2018-12-26 16:53] VITALS: BP 136/87; PULSE 99; TEMP 98.7
== END 2018-12-26 16:53 | disposition home or self-care (01) ==
LOC: EC 13:08
DX: G43.909 Migraine, unspecified, not intractable, without status migrainosus (principal); E61.1 Iron deficiency; F41.9 Anxiety disorder, unspecified; F32.9 Major depressive disorder, single episode, unspecified; F43.10 Post-traumatic stress disorder, unspecified; F17.200 Nicotine dependence, unspecified, uncomplicated; Z98.2 Presence of cerebrospinal fluid drainage device; Z86.14 Personal history of Methicillin resistant Staphylococcus aureus infection; Z79.890 Hormone replacement therapy; Z79.84 Long term (current) use of oral hypoglycemic drugs; Z79.899 Other long term (current) drug therapy; Z88.5 Allergy status to narcotic agent; Z88.0 Allergy status to penicillin; Z88.1 Allergy status to other antibiotic agents; Z88.8 Allergy status to other drugs, medicaments and biological substances
CPT/HCPCS: 36415; 80053; 85025; 99284; 96374; 96375 ×2; 96361 ×2; J1200; J2765; J1885

== ENCOUNTER 2018-12-27 16:29 | Emergency (ER) | payer OTHER ==
[2018-12-27] MEDS ORDERED: SODIUM CHLORIDE 0.9% 1,000 ML IV ONE (16:59)
[2018-12-27] MEDS ORDERED: METOCLOPRAMIDE 5 MG/ML 2 ML VIAL IVP STA (16:59)
[2018-12-27] MEDS ORDERED: DEXAMETHASONE SOD PHOSPHATE 10 MG/ML 1 ML VIAL IV STA (16:59)
[2018-12-27] MEDS ORDERED: KETOROLAC 30 MG/ML 1 ML VIAL IVP STA (16:59)
[2018-12-27] MEDS ORDERED: diphenhydrAMINE 50 MG/ML 1 ML VIAL IVP STA (16:59)
--- NOTE | 2018-12-27 17:04 | ED ---
General Adult HPI - General Chief complaint: Headache Stated complaint: Headache, sent by Time Seen by Provider: 12/27/18 16:50 Source: patient Mode of arrival: ambulatory Limitations: no limitations - History of Present Illness Initial comments: The patient is a 23-year-old female presented with a chief complaint of a migraine headache. She is a history of pseudotumor cerebri, hypothyroidism. She was sent in by her doctor or evaluation and requesting a computed tomography scan of the head. The patient has a lumbar shunt, and states that the last time she saw her neurosurgeon she was told that the shunt may have been displaced. Her next follow-up with neurosurgery as next month. The patient states that she has had a headache since . She cannot identify any inciting incidences. There are no aggravating or alleviating factors. Timing is constant. She received a shot of Imitrex by her primary care doctor and states that for 30 minutes afterwards she was numb and that her headache came back. - Related Data Home Medications Medication Instructions Recorded Confirmed traZODone HCL [Desyrel] 200 mg PO HS 07/17/16 12/27/18 Ferrous Sulfate [Iron (65 MG 325 mg PO BID 10/22/17 12/27/18 Elemental)] Levothyroxine Sodium 25 mcg PO DAILY 09/19/18 12/27/18 metFORMIN HCL [Glucophage] 500 mg PO BID 12/14/18 12/27/18 Previous Rx's Medication Instructions Recorded HYDROcodone/APAP 5-325MG [[place] 1 tab PO Q6HR PRN 3 Days #3 tab 12/27/18 5-325] Allergies Allergy/AdvReac Type Severity Reaction Status Date / Time morphine Allergy Intermediate Rash/Hives Verified 12/27/18 17:19 Penicillins Allergy Intermediate Rash/Hives Verified 12/27/18 17:19 cephalexin [From Keflex] Allergy RASH/HIVES-SEE Verified 12/27/18 17:19 COMMENTS clarithromycin [From Biaxin] Allergy Rash/Hives Verified 12/27/18 17:19 heparin Allergy RASH/HIVES-SEE Verified 12/27/18 17:19 COMMENTS Review of Systems ROS Statement: Those systems with pertinent positive or pertinent negative responses have been documented in the HPI. ROS Other: All systems not noted in ROS Statement are negative. Neurological: Reports: headache Past Medical History Past Medical History: Asthma, Chest Pain / Angina, GERD/Reflux, Musculoskeletal Disorder, Syncope Additional Past Medical History / Comment(s): CHILDHOOD ASTHMA; Seasonal Allergies; HX PANCREATITIS; HX LT ANKLE FX, "POPS" OUT OF PLACE OCC; C/O FREQ PALPITATIONS, GETS CP, POTS, POCS; OPTIC NERVE PRESSURE/UNKNOWN CAUSE, hx 2 seizures last seizure 07/27,iron deficiency. LP SHUNT History of Any Multi-Drug Resistant Organisms: MRSA Date of last positivie culture/infection: 2014 MDRO Source:: left foot Past Surgical History: No Surgical Hx Reported Additional Past Surgical History / Comment(s): WISDOM TEETH EXTRACTED; PAIN PROCEURES, lumbar shunt Past Anesthesia/Blood Transfusion Reactions: Motion Sickness Past Psychological History: Anxiety, Depression, Panic Disorder, PTSD Smoking Status: Current every day smoker Past Alcohol Use History: Occasional Past Drug Use History: None Reported - Past Family History Mother Family Medical History: No Reported History General Exam Limitations: no limitations General appearance: alert, in no apparent distress Head exam: Present: atraumatic, normocephalic Eye exam: Present: normal appearance ENT exam: Present: normal exam Neck exam: Present: normal inspection Respiratory exam: Present: normal lung sounds bilaterally. Absent: respiratory distress, wheezes Cardiovascular Exam: Present: regular rate, normal rhythm GI/Abdominal exam: Present: soft. Absent: distended, tenderness Rectal exam: Present: deferred Extremities exam: Present: normal inspection Back exam: Present: normal inspection Neurological exam: Present: alert, oriented X3, CN II-XII intact, normal gait Expanded Neurological exam: Present: protecting the airway, other (Pupils are equal round and reactive to light and accommodation). Absent: ataxia Speech: Present: fluid speech Cranial nerves: EOM's Intact: Normal Psychiatric exam: Present: normal affect, normal mood Skin exam: Present: warm, dry, intact Course Vital Signs 12/27/18 12/27/18 16:31 19:21 Temperature 98 F 97.9 F Pulse Rate 99 83 Respiratory 20 18 Rate Blood Pressure 123/53 128/69 O2 Sat by Pulse 97 97 Oximetry Medical Decision Making - Medical Decision Making Patient presents with a chief complaint of a headache. On initial evaluation, vitals are stable, patient is in no acute distress. He has a history of pseudotumor cerebri and a possible shunt dislocation. Patient will be evaluated with an acute abdominal series to evaluate the lumbar shunt. She will have a computed tomography scan of the head. Patient given a headache cocktail offered therapeutic LP. Patient denies any fever, chills, nausea or vomiting. 8:07 PM On reevaluation, patient states her pain is somewhat improved but she still has a headache. Shunt series is unremarkable, computed tomography scan of the head shows no acute process. Patient continued be neurologically intact and is now hungry. I discussed results with her. At this time, she is declining lumbar puncture. She has follow-up with her neurosurgeon early next month. Patient was instructed on low stimulation and pain medication for the headache. The patient will be prescribed 3 tablets of [place] for severe pain. She was instructed to follow up with primary care and neurosurgery, return to the ED if symptoms worsen or change. - Lab Data Result diagrams: 12/27/18 17:19 12/27/18 17: Lab Results 12/27/18 12/27/18 12/27/18 Range/Units 17:19 17:19 19:23 WBC 9.8 (3.8-10.6) k/uL RBC 4.79 (3.80-5.40) m/uL Hgb 13.7 (11.4-16.0) gm/dL Hct 40.4 (34.0-46.0) % MCV 84.3 (80.0-100.0) fL MCH 28.7 (25.0-35.0) pg MCHC 34.0 (31.0-37.0) g/dL RDW 13.6 (11.5-15.5) % Plt Count 246 (150-450) k/uL Neutrophils % 62 % Lymphocytes % 28 % Monocytes % 4 % Eosinophils % 4 % Basophils % 1 % Neutrophils # 6.1 (1.3-7.7) k/uL Lymphocytes # 2.8 (1.0-4.8) k/uL Monocytes # 0.4 (0-1.0) k/uL Eosinophils # 0.4 (0-0.7) k/uL Basophils # 0.1 (0-0.2) k/uL Sodium 141 (137-145) mmol/L Potassium 4.3 (3.5-5.1) mmol/L Chloride 107 (98-107) mmol/L Carbon Dioxide 26 (22-30) mmol/L Anion Gap 8 mmol/L BUN 13 (7-17) mg/dL Creatinine 0.81 (0.52-1.04) mg/dL Est GFR (CKD-EPI)AfAm >90 (>60 ml/min/1.73 sqM) Est GFR (CKD-EPI)NonAf >90 (>60 ml/min/1.73 sqM) Glucose 111 H (74-99) mg/dL Calcium 9.6 (8.4-10.2) mg/dL HCG, Qual Not Detected Disposition Clinical Impression: Headache Disposition: HOME SELF-CARE Condition: Good Instructions (If sedation given, give patient instructions): Acute Headache (ED) Prescriptions: HYDROcodone/APAP 5-325MG [[place] 5-325] 1 tab PO Q6HR PRN 3 Days #3 tab PRN Reason: Pain Is patient prescribed a controlled substance at d/c from ED?: Yes If prescribed controlled substance>3 days was MAPS reviewed?: Prescribed <3 Days Referrals: Tam Aggarwal MD [Primary Care Provider] - 1-2 days
[2018-12-27 17:31] LABS: Basophils # (A) 0.1 k/uL (0-0.2); Basophils % (A) 1 %; Eosinophils # (A) 0.4 k/uL (0-0.7); Eosinophils % (A) 4 %; HCT 40.4 % (34.0-46.0); HGB 13.7 gm/dL (11.4-16.0); Lymphocytes # (A) 2.8 k/uL (1.0-4.8); Lymphocytes % (A) 28 %; MCH 28.7 pg (25.0-35.0); MCV 84.3 fL (80.0-100.0); Mean Platelet Volume 6.8; Monocytes # (A) 0.4 k/uL (0-1.0); Monocytes % (A) 4 %; Neutrophils # (A) 6.1 k/uL (1.3-7.7); Neutrophils % (A) 62 %; Platelet Count 246 k/uL (150-450); RBC 4.79 m/uL (3.80-5.40); RDW 13.6 % (11.5-15.5); WBC 9.8 k/uL (3.8-10.6)
[2018-12-27 17:41] LABS: Anion Gap 8 mmol/L; Blood Urea Nitrogen 13 mg/dL (7-17); Calcium 9.6 mg/dL (8.4-10.2); Carbon Dioxide 26 mmol/L (22-30); Chloride 107 mmol/L (98-107); Glucose 111 mg/dL (74-99); Potassium 4.3 mmol/L (3.5-5.1); Sodium 141 mmol/L (137-145)
--- NOTE | 2018-12-27 18:47 | CT ---
EXAMINATION TYPE: CT brain wo con DATE OF EXAM: 12/27/2018 COMPARISON: 10/26/2017 HISTORY: headache CT DLP: 1162.4 mGycm. Automated Exposure Control for Dose Reduction was Utilized. TECHNIQUE: CT scan of the head is performed without contrast. FINDINGS: There is no acute intracranial hemorrhage, mass effect, or midline shift identified. The ventricles and sulci are within normal limits in size. The globes are intact and the visualized sin uses are clear. IMPRESSION: No acute intracranial hemorrhage, mass effect, or midline shift is seen.
--- NOTE | 2018-12-27 18:53 | XR ---
EXAMINATION TYPE: XR abdomen 1V DATE OF EXAM: 12/27/2018 6:48 PM CLINICAL HISTORY: Abdominal pain TECHNIQUE: Single supine KUB image of the abdomen is obtained. COMPARISON: 02/15/2018. FINDINGS: Scattered gas is seen in non-distended small bowel loops. Gas and fecal material is seen in non-distended colon. There is no visceromegaly, pneumoperitoneum, or abnormal calcification apprecia neftaly. There is a new right-sided catheter overlying the right mid abdomen terminating at the L3-L4 int ervertebral disc space level. Second catheter overlies the right upper quadrant. The lung bases are c lear and the osseous structures are intact. IMPRESSION: Nonobstructive bowel gas pattern.
[2018-12-27 19:23] VITALS: TEMP 97.9
--- NOTE | 2018-12-27 19:53 | XR ---
EXAMINATION: XR chest 1V DATE AND TIME: 12/27/2018 6:48 PM CLINICAL INDICATION: PHH; Shunt TECHNIQUE: Departmental protocol COMPARISON: None FINDINGS: The overlying soft tissues are prominent. Elevated hemidiaphragms noted at the moment of x-ray exposure, not allowing full visualization of the lung bases. Given these factors, the lungs appear to be clear bilaterally. The pleural spaces appear to be negative. The cardiac silhouette does not appear to be enlarged. The remainder of the mediastinal silhouette is unremarkable. The skeletal structures and soft tissues are negative for acute findings. IMPRESSION: NO DEFINITE ACUTE PROCESS.
[2018-12-27 20:29] VITALS: BP 127/84; PULSE 86; RESP 16
== END 2018-12-27 20:30 | disposition home or self-care (01) ==
LOC: EC 16:29
DX: R51 Headache (principal); E61.1 Iron deficiency; E03.9 Hypothyroidism, unspecified; F41.9 Anxiety disorder, unspecified; F32.9 Major depressive disorder, single episode, unspecified; F43.10 Post-traumatic stress disorder, unspecified; F17.200 Nicotine dependence, unspecified, uncomplicated; Z86.69 Personal history of other diseases of the nervous system and sense organs; Z53.29 Procedure and treatment not carried out because of patient's decision for other reasons; Z96.89 Presence of other specified functional implants; Z79.890 Hormone replacement therapy; Z79.84 Long term (current) use of oral hypoglycemic drugs; Z79.899 Other long term (current) drug therapy; Z88.5 Allergy status to narcotic agent; Z88.0 Allergy status to penicillin; Z88.1 Allergy status to other antibiotic agents; Z88.8 Allergy status to other drugs, medicaments and biological substances
CPT/HCPCS: 36415; 80048; 85025; 84703; 71045; 74018; 70450; 99284; 96374; 96375 ×3; 96361 ×2; J1200; J1100; J2765; J1885

== ENCOUNTER → 2019-01-31 | Outpatient (CLI) | payer OTHER ==
[2019-01-31 10:44] LABS: Appearance,Urine Clear (Clear); Bilirubin,Urine Negative (Negative); Blood,Urine Negative (Negative); Color,Urine Yellow; Glucose,Urine (UA) Negative (Negative); Ketones,Urine Negative (Negative); Leukocyte Esterase,Urine Negative (Negative); Nitrite,Urine Negative (Negative); PH, Urine 6.5 (5.0-8.0); Protein,Urine Trace (Negative); Specific Gravity,Urine 1.025 (1.001-1.035)
[2019-01-31 10:45] LABS: Basophils # (A) 0.1 k/uL (0-0.2); Basophils % (A) 1 %; Eosinophils # (A) 0.2 k/uL (0-0.7); Eosinophils % (A) 3 %; HCT 39.5 % (34.0-46.0); HGB 13.4 gm/dL (11.4-16.0); Lymphocytes # (A) 3.1 k/uL (1.0-4.8); Lymphocytes % (A) 51 %; MCH 28.9 pg (25.0-35.0); MCHC 33.8 g/dL (31.0-37.0); MCV 85.4 fL (80.0-100.0); Mean Platelet Volume 6.6; Monocytes # (A) 0.3 k/uL (0-1.0); Monocytes % (A) 5 %; Neutrophils # (A) 2.2 k/uL (1.3-7.7); Neutrophils % (A) 36 %; Platelet Count 218 k/uL (150-450); RBC 4.62 m/uL (3.80-5.40); RDW 14.9 % (11.5-15.5); WBC 6.2 k/uL (3.8-10.6)
[2019-01-31 10:55] LABS: INR 0.9 (<1.2); Partial Thromboplastin Time 26.3 sec (22.0-30.0); Prothrombin Time 10.1 sec (9.0-12.0)
[2019-01-31 16:31] LABS: Albumin 4.2 g/dL (3.80-4.90); Calcium 8.6 mg/dL (8.7-10.3); Globulin 2.1 g/dL (1.6-3.3); Potassium 4.1 mmol/L (3.5-5.5); Total Bilirubin 0.6 mg/dL (0.2-1.2); Total Protein 6.3 g/dL (6.2-8.2)
== END ==
LOC: LABWHC1 10:13
PROVIDERS: ATTEND Neurological Surgery
DX: G93.2 Benign intracranial hypertension (principal); T85.09XA Other mechanical complication of ventricular intracranial (communicating) shunt, initial encounter
CPT/HCPCS: 36415; 80053; 81003; 85025; 85610; 85730

== ENCOUNTER 2019-03-09 15:29 | Emergency (ER) | payer OTHER ==
[2019-03-09 15:46] VITALS: RESP 18
--- NOTE | 2019-03-09 17:02 | XR ---
EXAMINATION TYPE: XR Hip LT and AP Pelvis DATE OF EXAM: 03/09/2019 COMPARISON: NONE HISTORY: Left hip pain TECHNIQUE: A single AP view of the pelvis is obtained. Two views of the left hip are obtained. FINDINGS: The pelvic ring is intact. Proximal left femur and hip joint appear normal. There is no sig n of hip dysplasia. Sacroiliac joints appear normal. IMPRESSION: Negative pelvis and left hip exam.
--- NOTE | 2019-03-09 17:36 | ED ---
Lower Extremity Injury HPI - General Chief Complaint: Extremity Injury, Lower Stated Complaint: Hip pain Time Seen by Provider: 03/09/19 15:57 Source: patient Mode of arrival: ambulatory Limitations: no limitations - History of Present Illness Initial Comments: 24-year-old female presenting today for chief complaint of left hip pain. She states she has had left hip pain that feels like a cracking/grinding sensation when she flexes at the left hip or extends. She states that increases with walking she states this is been ongoing for quite some time she believes over 2- 3 weeks. Patient states she has also walk and weight-bear she denies any lower extremity swelling, pain in the calf or groin. She does have low back pain patient is a radiation of the pain. Patient denies any fever or chills night sweats or inability to range the left hip. Review of system negative. - Related Data Home Medications Medication Instructions Recorded Confirmed traZODone HCL [Desyrel] 200 mg PO HS 07/17/16 12/27/18 Ferrous Sulfate [Iron (65 MG 325 mg PO BID 10/22/17 12/27/18 Elemental)] Levothyroxine Sodium 25 mcg PO DAILY 09/19/18 12/27/18 metFORMIN HCL [Glucophage] 500 mg PO BID 12/14/18 12/27/18 Previous Rx's Medication Instructions Recorded HYDROcodone/APAP 5-325MG [[place] 1 tab PO Q6HR PRN 3 Days #3 tab 12/27/18 5-325] Allergies Allergy/AdvReac Type Severity Reaction Status Date / Time morphine Allergy Intermediate Rash/Hives Verified 03/09/19 15:46 Penicillins Allergy Intermediate Rash/Hives Verified 03/09/19 15:46 cephalexin [From Keflex] Allergy RASH/HIVES-SEE Verified 03/09/19 15:46 COMMENTS clarithromycin [From Biaxin] Allergy Rash/Hives Verified 03/09/19 15:46 heparin Allergy RASH/HIVES-SEE Verified 03/09/19 15:46 COMMENTS Review of Systems ROS Statement: Those systems with pertinent positive or pertinent negative responses have been documented in the HPI. ROS Other: All systems not noted in ROS Statement are negative. Past Medical History Past Medical History: Asthma, Chest Pain / Angina, GERD/Reflux, Musculoskeletal Disorder, Syncope Additional Past Medical History / Comment(s): CHILDHOOD ASTHMA; Seasonal Allergies; HX PANCREATITIS; HX LT ANKLE FX, "POPS" OUT OF PLACE OCC; C/O FREQ PALPITATIONS, GETS CP, POTS, POCS; OPTIC NERVE PRESSURE/UNKNOWN CAUSE, hx 2 seizures last seizure 07/27,iron deficiency. LP SHUNT History of Any Multi-Drug Resistant Organisms: MRSA Date of last positivie culture/infection: 2014 MDRO Source:: left foot Past Surgical History: No Surgical Hx Reported Additional Past Surgical History / Comment(s): WISDOM TEETH EXTRACTED; PAIN PROCEURES, lumbar shunt Past Anesthesia/Blood Transfusion Reactions: Motion Sickness Past Psychological History: Anxiety, Depression, Panic Disorder, PTSD Smoking Status: Current every day smoker Past Alcohol Use History: Occasional Past Drug Use History: None Reported - Past Family History Mother Family Medical History: No Reported History General Exam - General Exam Comments Initial Comments: General: The patient is awake and alert, in no distress, and does not appear acutely ill. Eye: +3 mm pupils are equal, round and reactive to light, extra-ocular movements are intact. No nystagmus. There is normal conjunctiva bilaterally. No signs of icterus. Ears, nose, mouth and throat: There are moist mucous membranes and no oral lesions. Neck: The neck is supple, there is no tenderness or JVD. Cardiovascular: There is a regular rate and rhythm. No murmur, rub or gallop is appreciated. Respiratory: Lungs are clear to auscultation, respirations are non-labored, breath sounds are equal. No wheezes, stridor, rales, or rhonchi. Gastrointestinal: Soft, non-distended, non-tender abdomen without masses or organomegaly noted. There is no rebound or guarding present. No CVA tenderness. Bowel sounds are unremarkable. Musculoskeletal: Normal ROM at the hips knees and ankles bilaterally, patient admits to tenderness in the left hip with all ranges of motion. Strength 5/5 of the lower extremities bilaterally. Sensation intact of the lower extremity bilaterally. Radial and DP pulses equal bilaterally 2+. Neurological: A&O x 3. CN II-XII intact, There are no obvious motor or sensory deficits. Coordination appears grossly intact. Speech is normal. Skin: Skin is warm and dry and no rashes or lesions are noted. Psychiatric: Cooperative, appropriate mood & affect, normal judgment. Limitations: no limitations Course Vital Signs 03/09/19 03/09/19 15:43 17:44 Temperature 98.4 F 98 F Pulse Rate 103 H 99 Respiratory 18 18 Rate Blood Pressure 113/65 150/87 O2 Sat by Pulse 96 96 Oximetry Medical Decision Making - Medical Decision Making 24-year-old feel presenting for left hip grinding. Imaging studies revealed no acute osseous process. Patient neurovascular intact. Patient requesting discharge stating she has to go home. Patient is not a further testing. This time feel patient is stable for discharge with outpatient primary care follow- up. - Lab Data Lab Results 03/09/19 Range/Units 14:08 Urine HCG, Qual Not Detected (Not Detectd) Disposition Clinical Impression: Left hip pain Disposition: HOME SELF-CARE Condition: Good Instructions (If sedation given, give patient instructions): Hip Pain (ED) Additional Instructions: Please use medication as discussed. Please follow-up with family doctor in the next 2 days, I recommend orthopedic evaluation given length of symptoms. Please return to emergency room if the symptoms increase or worsen or for any other co ncerns. Is patient prescribed a controlled substance at d/c from ED?: No Referrals: Tam Aggarwal MD [Primary Care Provider] - 1-2 days Chinedu Mtz DO [Medical Doctor] - 1-2 days Time of Disposition: 17:36
[2019-03-09 17:45] VITALS: BP 150/87; PULSE 99; TEMP 98
== END 2019-03-09 17:44 | disposition home or self-care (01) ==
LOC: EC 15:29
DX: M25.552 Pain in left hip (principal); M54.5 Low back pain; F41.0 Panic disorder [episodic paroxysmal anxiety]; F32.9 Major depressive disorder, single episode, unspecified; F43.10 Post-traumatic stress disorder, unspecified; F17.200 Nicotine dependence, unspecified, uncomplicated; Z86.14 Personal history of Methicillin resistant Staphylococcus aureus infection; Z79.84 Long term (current) use of oral hypoglycemic drugs; Z79.890 Hormone replacement therapy; Z79.899 Other long term (current) drug therapy; Z88.0 Allergy status to penicillin; Z88.1 Allergy status to other antibiotic agents; Z88.5 Allergy status to narcotic agent; Z88.8 Allergy status to other drugs, medicaments and biological substances
CPT/HCPCS: 73502; 81025; 99283

== ENCOUNTER → 2019-04-07 | Outpatient (CLI) | payer OTHER ==
--- NOTE | 2019-04-07 09:50 | US ---
EXAMINATION TYPE: US liver DATE OF EXAM: 04/07/2019 COMPARISON: CT 07/10/2018 , CLINICAL HISTORY: 24-year-old female R74.8 ABN LIVER ENZYME LEVELS. Diarrhea; on meds for thyroid, diabetes, and takes vitamin E TECHNIQUE: Multiple sonographic images of the right upper quadrant are obtained. FINDINGS: EXAM MEASUREMENTS: Liver Length: 23.1 cm Gallbladder Wall: 0.3 cm CBD: 0.3 cm Right Kidney: 10.0 x 6.1 x 4.4 cm [employer] Engineer notes: Large patient body habitus is noted Pancreas: Portion of the pancreatic head is seen. The remainder is obscured by overlying bowel gas Liver: fatty, enlarged, and attenuated posteriorly. This secondarily limits assessment for focal les ion. Gallbladder: No abnormal distention, wall thickening, pericholecystic fluid, or shadowing calculi. Evidence for sonographic Hoyos's sign: no CBD: wnl Right Kidney: No hydronephrosis. IMPRESSION: 1. Limitations due to large patient body habitus. 2. Hepatomegaly (23.1 cm) with severe hepatic steatosis. Correlate with LFTs, lipid profile, and lamonte ent risk factors.
== END | disposition home or self-care (01) ==
LOC: RADUSWWP 07:00
PROVIDERS: ATTEND Family Medicine
DX: K76.0 Fatty (change of) liver, not elsewhere classified (principal)
CPT/HCPCS: 76705

== ENCOUNTER 2019-05-08 10:07 | Emergency (ER) | payer OTHER ==
[2019-05-08] MEDS ORDERED: IBUPROFEN 600 MG TAB PO STA (11:05)
[2019-05-08] MEDS: ACETAMINOPHEN TAB 500 MG TAB PO STA ×2 (11:06→11:07)
[2019-05-08] MEDS ORDERED: IPRATROPIUM-ALBUTEROL 3 ML NEB INHALATION STA (11:07)
--- NOTE | 2019-05-08 11:41 | XR ---
EXAMINATION TYPE: XR chest 2V DATE OF EXAM: 05/08/2019 COMPARISON: Prior chest x-ray 12/27/2018 HISTORY: Shortness of breath TECHNIQUE: Frontal and lateral views of the chest are obtained. FINDINGS: Exam is expiratory and rotated. There is no focal air space opacity, pleural effusion, or p neumothorax seen. The cardiac silhouette size is within normal limits. The osseous structures are intact. IMPRESSION: No acute cardiopulmonary process.
[2019-05-08 11:51] LABS: Appearance,Urine Clear (Clear); Bilirubin,Urine Negative (Negative); Blood,Urine Negative (Negative); Color,Urine Yellow; Glucose,Urine (UA) Negative (Negative); Ketones,Urine Negative (Negative); Leukocyte Esterase,Urine Negative (Negative); Nitrite,Urine Negative (Negative); PH, Urine 5.5 (5.0-8.0); Protein,Urine Negative (Negative); Specific Gravity,Urine 1.019 (1.001-1.035); Urobilinogen,Urine <2.0 mg/dL (<2.0)
--- NOTE | 2019-05-08 11:54 | ED ---
General Adult HPI - General Source: patient, RN notes reviewed Mode of arrival: ambulatory Limitations: no limitations <Dayday Mcleod P - Last Filed: 05/08/19 20:09> <Mishel Roy - Last Filed: 05/08/19 21:00> - General Chief complaint: Upper Respiratory Infection Stated complaint: cough Time Seen by Provider: 05/08/19 10:37 - History of Present Illness Initial comments: 24-year-old female presents to the emergency department for a chief complaint of cough. Patient states that yesterday she started to come down with a sore scratchy throat that has since resolved. States she started have some congestion and ear pressure as well. Patient then developed a cough. She states her cough sounds "pretty gross." Denies any productive cough. Does admit to a smoking history. Denies chest pain or shortness of breath. Patient states she is aching all over. States she cannot have Tylenol due to fatty live r.Patient has no other complaints at this time including shortness of breath, chest pain, abdominal pain, nausea or vomiting, headache, or visual changes. (Dayday Mcleod) - Related Data Home Medications Medication Instructions Recorded Confirmed Levothyroxine Sodium 25 mcg PO DAILY 09/19/18 05/08/19 metFORMIN HCL [Glucophage] 500 mg PO BID 12/14/18 05/08/19 Ferrous Sulfate [Iron (65 MG 325 mg PO DAILY 05/08/19 05/08/19 Elemental)] Vitamin E 1,000 unit PO DAILY 05/08/19 05/08/19 lamoTRIgine [LaMICtal] 25 mg PO DAILY 05/08/19 05/08/19 traZODone HCL [Desyrel] 100 mg PO HS 05/08/19 05/08/19 Allergies Allergy/AdvReac Type Severity Reaction Status Date / Time morphine Allergy Intermediate Rash/Hives Verified 05/08/19 10:48 Penicillins Allergy Intermediate Rash/Hives Verified 05/08/19 10:48 clarithromycin [From Biaxin] Allergy Rash/Hives Verified 05/08/19 10:48 heparin Allergy RASH/HIVES-SEE Verified 05/08/19 10:48 COMMENTS sterie strips Allergy Blisters Uncoded 05/08/19 10:48 Review of Systems ROS Other: All systems not noted in ROS Statement are negative. <Courtney Mcleodey P - Last Filed: 05/08/19 20:09> ROS Other: All systems not noted in ROS Statement are negative. <Mishel Roy - Last Filed: 05/08/19 21:00> ROS Statement: Those systems with pertinent positive or pertinent negative responses have been documented in the HPI. Past Medical History Past Medical History: Asthma, Chest Pain / Angina, GERD/Reflux, Musculoskeletal Disorder, Syncope Additional Past Medical History / Comment(s): CHILDHOOD ASTHMA; Seasonal Allergies; HX PANCREATITIS; HX LT ANKLE FX, "POPS" OUT OF PLACE OCC; C/O FREQ PALPITATIONS, GETS CP, POTS, POCS; OPTIC NERVE PRESSURE/UNKNOWN CAUSE, hx 2 seizures last seizure 07/27,iron deficiency. LP SHUNT History of Any Multi-Drug Resistant Organisms: MRSA Date of last positivie culture/infection: 2014 MDRO Source:: left foot Past Surgical History: No Surgical Hx Reported Additional Past Surgical History / Comment(s): WISDOM TEETH EXTRACTED; PAIN PROCEURES, lumbar shunt D&C Past Anesthesia/Blood Transfusion Reactions: Motion Sickness Past Psychological History: Anxiety, Depression, Panic Disorder, PTSD Smoking Status: Current every day smoker Past Alcohol Use History: Occasional Past Drug Use History: None Reported - Past Family History Mother Family Medical History: No Reported History <ShaniDayday P - Last Filed: 05/08/19 20:09> General Exam Limitations: no limitations General appearance: alert, in no apparent distress Head exam: Present: atraumatic, normocephalic, normal inspection Eye exam: Present: normal appearance, PERRL, EOMI. Absent: scleral icterus, conjunctival injection, periorbital swelling ENT exam: Present: normal exam, normal oropharynx (Uvula midline non erythematous no exudates), mucous membranes moist, TM's normal bilaterally, norm al external ear exam Neck exam: Present: normal inspection, full ROM. Absent: tenderness, meningismus, lymphadenopathy Respiratory exam: Present: decreased breath sounds (Diminished lung sounds bilaterally). Absent: respiratory distress, wheezes, rales, rhonchi, stridor Cardiovascular Exam: Present: regular rate, normal rhythm, normal heart sounds. Absent: systolic murmur, diastolic murmur, rubs, gallop, clicks GI/Abdominal exam: Present: soft, normal bowel sounds. Absent: distended, tenderness, guarding, rebound, rigid Neurological exam: Present: alert, oriented X3 Psychiatric exam: Present: normal affect, normal mood <Dayday Mcleod - Last Filed: 05/08/19 20:09> Course Vital Signs 05/08/19 05/08/19 05/08/19 10:32 11:31 11:40 Temperature 100.1 F H Pulse Rate 118 H 88 90 Respiratory 18 Rate Blood Pressure 111/64 O2 Sat by Pulse 94 L Oximetry 05/08/19 05/08/19 05/08/19 12:30 13:32 16:00 Temperature 98.8 F 97.6 F Pulse Rate 97 102 H 92 Respiratory 22 20 20 Rate Blood Pressure 131/67 128/56 107/57 O2 Sat by Pulse 95 99 97 Oximetry 05/08/19 16:50 Temperature 97.0 F L Pulse Rate 78 Respiratory 18 Rate Blood Pressure 131/56 O2 Sat by Pulse 100 Oximetry EKG Findings - EKG Comments: EKG Findings:: Sinus tachycardia, ventricular rate 103, IA interval 138, QTc 442 <Dayday Mcleod P - Last Filed: 05/08/19 20:09> Medical Decision Making - Lab Data Result diagrams: 05/08/19 12:30 05/08/19 12:30 <Dayday Mcleod - Last Filed: 05/08/19 20:09> - Lab Data Result diagrams: 05/08/19 12:30 05/08/19 12:30 <Mishel Roy - Last Filed: 05/08/19 21:00> - Medical Decision Making 24-year-old female presents for chief complaint of cough. States that yesterday she had a scratchy throat which has since resolved. She did start to have some congestion and ear pressure and developed a cough patient states she is aching all over but denies known fever. Denies chest pain or shortness of breath. However presentation patient does have a fever of 100.9. Patient initially tachycardic as well which was likely secondary to fever. Patient given Motrin as she refused Tylenol. Chest x-ray initially obtained which showed no acute process. However given patient's history of D&C 3 weeks ago there is concern for possible PE. Therefore blood work was obtained. CBC did have mild leukocytosis, likely reactive. CMP was unremarkable however lactic acid was 2.4, patient given fluids and this did decrease to 0.9. Troponin is negative. D-dimer was minimally elevated. CT showed no evidence for a central large pulmonary embolism. The lobar segmental and distal arterial branches are nondia gnostic due to patient breathing however there is not high suspicion for this. (Dayday Mcleod) - Lab Data Lab Results 05/08/19 05/08/19 05/08/19 Range/Units 11:15 11:15 11:15 WBC (3.8-10.6) k/uL RBC (3.80-5.40) m/uL Hgb (11.4-16.0) gm/dL Hct (34.0-46.0) % MCV (80.0-100.0) fL MCH (25.0-35.0) pg MCHC (31.0-37.0) g/dL RDW (11.5-15.5) % Plt Count (150-450) k/uL Neutrophils % % Lymphocytes % % Monocytes % % Eosinophils % % Basophils % % Neutrophils # (1.3-7.7) k/uL Lymphocytes # (1.0-4.8) k/uL Monocytes # (0-1.0) k/uL Eosinophils # (0-0.7) k/uL Basophils # (0-0.2) k/uL PT (9.0-12.0) sec INR (<1.2) APTT (22.0-30.0) sec D-Dimer (<0.60) mg/L FEU Sodium (137-145) mmol/L Potassium (3.5-5.1) mmol/L Chloride (98-107) mmol/L Carbon Dioxide (22-30) mmol/L Anion Gap mmol/L BUN (7-17) mg/dL Creatinine (0.52-1.04) mg/dL Est GFR (CKD-EPI)AfAm (>60 ml/min/1.73 sqM) Est GFR (CKD-EPI)NonAf (>60 ml/min/1.73 sqM) Glucose (74-99) mg/dL Lactic Ac Sepsis Rflx Plasma Lactic Acid Garry (0.7-2.0) mmol/L Calcium (8.4-10.2) mg/dL Magnesium (1.6-2.3) mg/dL Total Bilirubin (0.2-1.3) mg/dL AST (14-36) U/L ALT (9-52) U/L Alkaline Phosphatase (38-126) U/L Troponin I (0.000-0.034) ng/mL Total Protein (6.3-8.2) g/dL Albumin (3.5-5.0) g/dL Urine Color Yellow Urine Appearance Clear (Clear) Urine pH 5.5 (5.0-8.0) Ur Specific [place] 1.019 (1.001-1.035) Urine Protein Negative (Negative) Urine Glucose (UA) Negative (Negative) Urine Ketones Negative (Negative) Urine Blood Negative (Negative) Urine Nitrite Negative (Negative) Urine Bilirubin Negative (Negative) Urine Urobilinogen <2.0 (<2.0) mg/dL Ur Leukocyte Esterase Negative (Negative) Urine HCG, Qual Not Detected (Not Detectd) Group A Strep Rapid Negative (Negative) 05/08/19 05/08/19 05/08/19 Range/Units 12:30 12:30 12:30 WBC 10.9 H (3.8-10.6) k/uL RBC 4.54 (3.80-5.40) m/uL Hgb 13.3 (11.4-16.0) gm/dL Hct 38.6 (34.0-46.0) % MCV 84.9 (80.0-100.0) fL MCH 29.2 (25.0-35.0) pg MCHC 34.4 (31.0-37.0) g/dL RDW 15.0 (11.5-15.5) % Plt Count 228 (150-450) k/uL Neutrophils % 65 % Lymphocytes % 26 % Monocytes % 4 % Eosinophils % 3 % Basophils % 1 % Neutrophils # 7.1 (1.3-7.7) k/uL Lymphocytes # 2.8 (1.0-4.8) k/uL Monocytes # 0.4 (0-1.0) k/uL Eosinophils # 0.4 (0-0.7) k/uL Basophils # 0.1 (0-0.2) k/uL PT 10.0 (9.0-12.0) sec INR 0.9 (<1.2) APTT 26.7 (22.0-30.0) sec D-Dimer 0.65 H (<0.60) mg/L FEU Sodium 138 (137-145) mmol/L Potassium 4.2 (3.5-5.1) mmol/L Chloride 105 (98-107) mmol/L Carbon Dioxide 25 (22-30) mmol/L Anion Gap 8 mmol/L BUN 9 (7-17) mg/dL Creatinine 0.61 (0.52-1.04) mg/dL Est GFR (CKD-EPI)AfAm >90 (>60 ml/min/1.73 sqM) Est GFR (CKD-EPI)NonAf >90 (>60 ml/min/1.73 sqM) Glucose 117 H (74-99) mg/dL Lactic Ac Sepsis Rflx Plasma Lactic Acid Garry (0.7-2.0) mmol/L Calcium 9.3 (8.4-10.2) mg/dL Magnesium 1.8 (1.6-2.3) mg/dL Total Bilirubin 0.5 (0.2-1.3) mg/dL AST 31 (14-36) U/L ALT 41 (9-52) U/L Alkaline Phosphatase 60 (38-126) U/L Troponin I (0.000-0.034) ng/mL Total Protein 6.8 (6.3-8.2) g/dL Albumin 4.0 (3.5-5.0) g/dL Urine Color Urine Appearance (Clear) Urine pH (5.0-8.0) Ur Specific [place] (1.001-1.035) Urine Protein (Negative) Urine Glucose (UA) (Negative) Urine Ketones (Negative) Urine Blood (Negative) Urine Nitrite (Negative) Urine Bilirubin (Negative) Urine Urobilinogen (<2.0) mg/dL Ur Leukocyte Esterase (Negative) Urine HCG, Qual (Not Detectd) Group A Strep Rapid (Negative) 05/08/19 05/08/19 05/08/19 Range/Units 12:30 12:30 13:55 WBC (3.8-10.6) k/uL RBC (3.80-5.40) m/uL Hgb (11.4-16.0) gm/dL Hct (34.0-46.0) % MCV (80.0-100.0) fL MCH (25.0-35.0) pg MCHC (31.0-37.0) g/dL RDW (11.5-15.5) % Plt Count (150-450) k/uL Neutrophils % % Lymphocytes % % Monocytes % % Eosinophils % % Basophils % % Neutrophils # (1.3-7.7) k/uL Lymphocytes # (1.0-4.8) k/uL Monocytes # (0-1.0) k/uL Eosinophils # (0-0.7) k/uL Basophils # (0-0.2) k/uL PT (9.0-12.0) sec INR (<1.2) APTT (22.0-30.0) sec D-Dimer (<0.60) mg/L FEU Sodium (137-145) mmol/L Potassium (3.5-5.1) mmol/L Chloride (98-107) mmol/L Carbon Dioxide (22-30) mmol/L Anion Gap mmol/L BUN (7-17) mg/dL Creatinine (0.52-1.04) mg/dL Est GFR (CKD-EPI)AfAm (>60 ml/min/1.73 sqM) Est GFR (CKD-EPI)NonAf (>60 ml/min/1.73 sqM) Glucose (74-99) mg/dL Lactic Ac Sepsis Rflx Y Plasma Lactic Acid Garry 2.4 H* (0.7-2.0) mmol/L Calcium (8.4-10.2) mg/dL Magnesium (1.6-2.3) mg/dL Total Bilirubin (0.2-1.3) mg/dL AST (14-36) U/L ALT (9-52) U/L Alkaline Phosphatase (38-126) U/L Troponin I <0.012 (0.000-0.034) ng/mL Total Protein (6.3-8.2) g/dL Albumin (3.5-5.0) g/dL Urine Color Urine Appearance (Clear) Urine pH (5.0-8.0) Ur Specific [place] (1.001-1.035) Urine Protein (Negative) Urine Glucose (UA) (Negative) Urine Ketones (Negative) Urine Blood (Negative) Urine Nitrite (Negative) Urine Bilirubin (Negative) Urine Urobilinogen (<2.0) mg/dL Ur Leukocyte Esterase (Negative) Urine HCG, Qual (Not Detectd) Group A Strep Rapid (Negative) 05/08/19 Range/Units 16:05 WBC (3.8-10.6) k/uL RBC (3.80-5.40) m/uL Hgb (11.4-16.0) gm/dL Hct (34.0-46.0) % MCV (80.0-100.0) fL MCH (25.0-35.0) pg MCHC (31.0-37.0) g/dL RDW (11.5-15.5) % Plt Count (150-450) k/uL Neutrophils % % Lymphocytes % % Monocytes % % Eosinophils % % Basophils % % Neutrophils # (1.3-7.7) k/uL Lymphocytes # (1.0-4.8) k/uL Monocytes # (0-1.0) k/uL Eosinophils # (0-0.7) k/uL Basophils # (0-0.2) k/uL PT (9.0-12.0) sec INR (<1.2) APTT (22.0-30.0) sec D-Dimer (<0.60) mg/L FEU Sodium (137-145) mmol/L Potassium (3.5-5.1) mmol/L Chloride (98-107) mmol/L Carbon Dioxide (22-30) mmol/L Anion Gap mmol/L BUN (7-17) mg/dL Creatinine (0.52-1.04) mg/dL Est GFR (CKD-EPI)AfAm (>60 ml/min/1.73 sqM) Est GFR (CKD-EPI)NonAf (>60 ml/min/1.73 sqM) Glucose (74-99) mg/dL Lactic Ac Sepsis Rflx Plasma Lactic Acid Garry 0.9 (0.7-2.0) mmol/L Calcium (8.4-10.2) mg/dL Magnesium (1.6-2.3) mg/dL Total Bilirubin (0.2-1.3) mg/dL AST (14-36) U/L ALT (9-52) U/L Alkaline Phosphatase (38-126) U/L Troponin I (0.000-0.034) ng/mL Total Protein (6.3-8.2) g/dL Albumin (3.5-5.0) g/dL Urine Color Urine Appearance (Clear) Urine pH (5.0-8.0) Ur Specific [place] (1.001-1.035) Urine Protein (Negative) Urine Glucose (UA) (Negative) Urine Ketones (Negative) Urine Blood (Negative) Urine Nitrite (Negative) Urine Bilirubin (Negative) Urine Urobilinogen (<2.0) mg/dL Ur Leukocyte Esterase (Negative) Urine HCG, Qual (Not Detectd) Group A Strep Rapid (Negative) Disposition Is patient prescribed a controlled substance at d/c from ED?: No Time of Disposition: 16:39 <Dayday Mcleod P - Last Filed: 05/08/19 20:09> <Mishel Roy - Last Filed: 05/08/19 21:00> Clinical Impression: Viral upper respiratory infection Disposition: HOME SELF-CARE Condition: Good Instructions (If sedation given, give patient instructions): Upper Respiratory Infection (ED) Additional Instructions: Please take Motrin and Tylenol for fever. Please follow-up with primary care in 1-2 days. Please return here to the emergency department if you have any worsening symptoms. Referrals: Tam Aggarwal MD [Primary Care Provider] - 1-2 days
[2019-05-08] MEDS ORDERED: SODIUM CHLORIDE 0.9% 1,000 ML IV STA (12:23)
[2019-05-08 13:42] LABS: Basophils # (A) 0.1 k/uL (0-0.2); Basophils % (A) 1 %; Eosinophils # (A) 0.4 k/uL (0-0.7); Eosinophils % (A) 3 %; HCT 38.6 % (34.0-46.0); HGB 13.3 gm/dL (11.4-16.0); Lymphocytes # (A) 2.8 k/uL (1.0-4.8); Lymphocytes % (A) 26 %; MCH 29.2 pg (25.0-35.0); MCHC 34.4 g/dL (31.0-37.0); MCV 84.9 fL (80.0-100.0); Mean Platelet Volume 7.5; Monocytes # (A) 0.4 k/uL (0-1.0); Monocytes % (A) 4 %; Neutrophils # (A) 7.1 k/uL (1.3-7.7); Neutrophils % (A) 65 %; Platelet Count 228 k/uL (150-450); RBC 4.54 m/uL (3.80-5.40); WBC 10.9 k/uL (3.8-10.6)
[2019-05-08 13:49] LABS: ALT 41 U/L (9-52); AST 31 U/L (14-36); African American GFR (CKD) >90 (>60 ml/min/1.73 sqM); Alkaline Phosphatase 60 U/L (38-126); Anion Gap 8 mmol/L; Blood Urea Nitrogen 9 mg/dL (7-17); Calcium 9.3 mg/dL (8.4-10.2); Carbon Dioxide 25 mmol/L (22-30); Chloride 105 mmol/L (98-107); Glucose 117 mg/dL (74-99); Magnesium 1.8 mg/dL (1.6-2.3); Potassium 4.2 mmol/L (3.5-5.1); Sodium 138 mmol/L (137-145); Total Bilirubin 0.5 mg/dL (0.2-1.3); Total Protein 6.8 g/dL (6.3-8.2)
[2019-05-08 13:53] LABS: INR 0.9 (<1.2); Partial Thromboplastin Time 26.7 sec (22.0-30.0)
[2019-05-08 14:28] LABS: D-Dimer 0.65 mg/L FEU (<0.60)
--- NOTE | 2019-05-08 15:24 | CT ---
EXAMINATION TYPE: CT chest angio for PE DATE OF EXAM: 05/08/2019 COMPARISON: Radiograph same day HISTORY: 24-year-old female cough and congestion TECHNIQUE: Contiguous axial scanning of the chest performed with IV Contrast, patient injected with 1 00 mL of Isovue 370. Coronal/sagittal MIP reconstructions performed. CT DLP: 992.8 mGycm Automated exposure control for dose reduction was used. FINDINGS: Heart normal size without pericardial effusion. Aorta normal caliber with conventional branching anatomy. Some residual thymic tissue along the anterior mediastinum. No thoracic lymphadenopathy by CT size cr iteria. Satisfactory opacification of the pulmonary arterial system though with excessive breathing motion ar tifact. No large central pulmonary embolus. Many of the lobar, segmental, and more distal arterial br anches are essentially nondiagnostic due to patient breathing. No consolidation or pleural effusion. Spleen enlarged measuring 16.1 cm. The liver is also enlarged with low attenuation. Some type of catheter enters along the epigastric region. Bones: No osseous destructive process. IMPRESSION: 1. PATIENT WAS BREATHING DURING THE SCAN. THIS DEGRADES ASSESSMENT FOR PULMONARY EMBOLUS. NO LARGE CE NTRAL PULMONARY EMBOLUS. MANY OF THE LOBAR, SEGMENTAL, AND MORE DISTAL ARTERIAL BRANCHES ARE ESSENTIA LLY NONDIAGNOSTIC. 2. NO ACUTE PULMONARY PROCESS SEEN. 3. HEPATOSPLENOMEGALY. HEPATIC STEATOSIS. CLINICALLY CORRELATE.
[2019-05-08 17:16] VITALS: BP 131/56; PULSE 78; RESP 18; TEMP 97
== END 2019-05-08 16:50 | disposition home or self-care (01) ==
LOC: EC 10:07
DX: J06.9 Acute upper respiratory infection, unspecified (principal); Z32.02 Encounter for pregnancy test, result negative; F41.0 Panic disorder [episodic paroxysmal anxiety]; F32.9 Major depressive disorder, single episode, unspecified; F17.200 Nicotine dependence, unspecified, uncomplicated; Z79.890 Hormone replacement therapy; Z79.84 Long term (current) use of oral hypoglycemic drugs; Z79.899 Other long term (current) drug therapy; Z88.0 Allergy status to penicillin; Z88.1 Allergy status to other antibiotic agents; Z88.5 Allergy status to narcotic agent; Z88.8 Allergy status to other drugs, medicaments and biological substances; Z91.048 Other nonmedicinal substance allergy status
CPT/HCPCS: 36415; 94640; 93005; 85379; 80053; 83605; 83735; 84484; 85025; 85610; 85730; 81003; 81025; 87081; 87430; 71046; 71275; 99284; 96360; Q9967

== ENCOUNTER 2019-05-15 18:06 | Emergency (ER) | payer OTHER ==
[2019-05-15 18:13] VITALS: BP 117/69; PULSE 113; RESP 18; TEMP 98.5
--- NOTE | 2019-05-15 19:11 | ED ---
Skin/Abscess/FB HPI - General Chief complaint: Skin/Abscess/Foreign Body Stated complaint: Lump on back Time Seen by Provider: 05/15/19 18:35 Source: patient, RN notes reviewed, old records reviewed Mode of arrival: ambulatory Limitations: no limitations - History of Present Illness Initial comments: Asians 24-year-old female with a history of spinal shunt presents today with swelling over shunt site for 2 weeks. Patient reports she was. With her neurologist and surgeon tomorrow. Patient states that she is concerned about that she needed to come down. She denies any worsening headaches or any other significant complaints. She reports she's had a lot of troubles with her spinal shunts in the past. Patient reports this recent surgery was a revision and she had that done in February. She denies any fevers or chills. Numbness or tingling down the legs. - Related Data Home Medications Medication Instructions Recorded Confirmed Levothyroxine Sodium 25 mcg PO DAILY 09/19/18 05/15/19 metFORMIN HCL [Glucophage] 500 mg PO BID 12/14/18 05/15/19 Ferrous Sulfate [Iron (65 MG 325 mg PO DAILY 05/08/19 05/15/19 Elemental)] lamoTRIgine [LaMICtal] 25 mg PO DAILY 05/08/19 05/15/19 traZODone HCL [Desyrel] 100 mg PO HS 05/08/19 05/15/19 Vitamin E (Dl,Tocopheryl Acet) 400 unit PO DAILY 05/15/19 05/15/19 [Vitamin E] medroxyPROGESTERone [Provera] 10 mg PO DIRECTED 05/15/19 05/15/19 Allergies Allergy/AdvReac Type Severity Reaction Status Date / Time morphine Allergy Intermediate Rash/Hives Verified 05/15/19 19:17 Penicillins Allergy Intermediate Rash/Hives Verified 05/15/19 19:17 clarithromycin [From Biaxin] Allergy Rash/Hives Verified 05/15/19 19:17 heparin Allergy RASH/HIVES-SEE Verified 05/15/19 19:17 COMMENTS sterie strips Allergy Blisters Uncoded 05/15/19 18:13 Review of Systems ROS Statement: Those systems with pertinent positive or pertinent negative responses have been documented in the HPI. ROS Other: All systems not noted in ROS Statement are negative. Past Medical History Past Medical History: Asthma, Chest Pain / Angina, GERD/Reflux, Musculoskeletal Disorder, Syncope Additional Past Medical History / Comment(s): CHILDHOOD ASTHMA; Seasonal Allergies; HX PANCREATITIS; HX LT ANKLE FX, "POPS" OUT OF PLACE OCC; C/O FREQ PALPITATIONS, GETS CP, POTS, POCS; OPTIC NERVE PRESSURE/UNKNOWN CAUSE, hx 2 seizures last seizure 07/27,iron deficiency. LP SHUNT History of Any Multi-Drug Resistant Organisms: MRSA Date of last positivie culture/infection: 2014 MDRO Source:: left foot Past Surgical History: No Surgical Hx Reported Additional Past Surgical History / Comment(s): WISDOM TEETH EXTRACTED; PAIN PROCEURES, lumbar shunt D&C Past Anesthesia/Blood Transfusion Reactions: Motion Sickness Past Psychological History: Anxiety, Depression, Panic Disorder, PTSD Smoking Status: Current every day smoker Past Alcohol Use History: Occasional Past Drug Use History: None Reported - Past Family History Mother Family Medical History: No Reported History General Exam - General Exam Comments Initial Comments: This is a 24-year-old female. Alert and oriented. No distress. Limitations: no limitations General appearance: alert, in no apparent distress Head exam: Present: atraumatic, normocephalic, normal inspection Eye exam: Present: normal appearance, PERRL, EOMI. Absent: scleral icterus, conjunctival injection, periorbital swelling ENT exam: Present: normal exam Neck exam: Present: normal inspection. Absent: tenderness, meningismus, lymphadenopathy Respiratory exam: Present: normal lung sounds bilaterally. Absent: respiratory distress, wheezes, rales, rhonchi, stridor Cardiovascular Exam: Present: regular rate, normal rhythm, normal heart sounds. Absent: systolic murmur, diastolic murmur, rubs, gallop, clicks GI/Abdominal exam: Present: soft, normal bowel sounds. Absent: distended, tenderness, guarding, rebound, rigid Extremities exam: Present: normal inspection, full ROM, normal capillary refill. Absent: tenderness, pedal edema, joint swelling, calf tenderness Back exam: Present: normal inspection, other (Patient has some swelling over the lumbar spine over 4 and 5 L4. There is seems fluctuant. No erythema.) Neurological exam: Present: alert, oriented X3, CN II-XII intact Psychiatric exam: Present: normal affect, normal mood Skin exam: Present: warm, dry, intact, normal color. Absent: rash Course Vital Signs 05/15/19 18:10 Temperature 98.5 F Pulse Rate 113 H Respiratory 18 Rate Blood Pressure 117/69 O2 Sat by Pulse 95 Oximetry Medical Decision Making - Medical Decision Making Patient has 2 weeks of swelling over her spinal shunt area placement. At this time patient's had the swelling for 2 weeks. Patient has no erythema. Denies any headaches otherwise appears well enzymes are stable. In discussion is follow-up with her neurosurgeon tomorrow. I went back to reevaluate the Patient after Dr. Douglas evaluated the Patient Patient started gone states she had a go to a doctor's appointment. Disposition Clinical Impression: Localized swelling of back Disposition: HOME SELF-CARE Condition: Good Additional Instructions: Follow-up with your neurosurgeon and primary care physician. Return to the emergency department if any alarming signs or symptoms occur. Is patient prescribed a controlled substance at d/c from ED?: No Referrals: Tam Aggarwal MD [Primary Care Provider] - 1-2 days Time of Disposition: 19:11
== END 2019-05-15 19:21 | disposition home or self-care (01) ==
LOC: EC 18:06
DX: R22.2 Localized swelling, mass and lump, trunk (principal); F32.9 Major depressive disorder, single episode, unspecified; F41.9 Anxiety disorder, unspecified; F17.200 Nicotine dependence, unspecified, uncomplicated; Z88.0 Allergy status to penicillin; Z88.1 Allergy status to other antibiotic agents; Z88.5 Allergy status to narcotic agent; Z88.8 Allergy status to other drugs, medicaments and biological substances; Z91.048 Other nonmedicinal substance allergy status; Z79.84 Long term (current) use of oral hypoglycemic drugs; Z79.890 Hormone replacement therapy; Z79.899 Other long term (current) drug therapy; Z86.14 Personal history of Methicillin resistant Staphylococcus aureus infection; Z86.69 Personal history of other diseases of the nervous system and sense organs; Z86.2 Personal history of diseases of the blood and blood-forming organs and certain disorders involving the immune mechanism; Z98.890 Other specified postprocedural states; Z53.29 Procedure and treatment not carried out because of patient's decision for other reasons
CPT/HCPCS: 99283

== ENCOUNTER 2019-06-04 20:08 | Emergency (ER) | payer OTHER ==
[2019-06-04 20:16] VITALS: BP 119/84; PULSE 110; RESP 16; TEMP 98.3
--- NOTE | 2019-06-04 21:15 | ED ---
General Adult HPI - General Chief complaint: Recheck/Abnormal Lab/Rx Stated complaint: Headache, Post Op Drainage Time Seen by Provider: 06/04/19 20:24 Source: patient Mode of arrival: ambulatory Limitations: no limitations - History of Present Illness Initial comments: Patient is a 24-year-old female presents emergency room with complaints of leakage around the site of her LP shunt. States that this is her fourth shunt. She recently had it revised by Dr. Clayton on Wednesday. States she has had a small amount of drainage after the procedure however today became excessive. States that she is saturating an ABG pad every 45 minutes. Denies pustular drainage. Denies any fevers or chills. Reports that she did have a headache earlier today. After the excessive drainage started she felt better. She denies any visual changes. No unilateral numbness or weakness. No nausea or vomiting. No ataxia or weakness. There are no other alleviating, precipitating or modifying factors - Related Data Home Medications Medication Instructions Recorded Confirmed Levothyroxine Sodium 25 mcg PO DAILY 09/19/18 06/04/19 lamoTRIgine [LaMICtal] 25 mg PO DAILY 05/08/19 06/04/19 medroxyPROGESTERone [Provera] 10 mg PO DIRECTED 05/15/19 06/04/19 HYDROcodone/APAP 5-325MG [[place] 1 tab PO Q4H PRN 06/04/19 06/04/19 5-325] Ibuprofen [Motrin] 800 mg PO Q8H PRN 06/04/19 06/04/19 Melatonin 3 mg PO HS 06/04/19 06/04/19 Allergies Allergy/AdvReac Type Severity Reaction Status Date / Time morphine Allergy Intermediate Rash/Hives Verified 06/04/19 20:40 Penicillins Allergy Intermediate Rash/Hives Verified 06/04/19 20:40 clarithromycin [From Biaxin] Allergy Rash/Hives Verified 06/04/19 20:40 heparin Allergy RASH/HIVES-SEE Verified 06/04/19 20:40 COMMENTS sterie strips Allergy Blisters Uncoded 06/04/19 20:44 Review of Systems ROS Statement: Those systems with pertinent positive or pertinent negative responses have been documented in the HPI. ROS Other: All systems not noted in ROS Statement are negative. Past Medical History Past Medical History: Asthma, Chest Pain / Angina, GERD/Reflux, Musculoskeletal Disorder, Syncope Additional Past Medical History / Comment(s): CHILDHOOD ASTHMA; Seasonal Allergies; HX PANCREATITIS; HX LT ANKLE FX, "POPS" OUT OF PLACE OCC; C/O FREQ PALPITATIONS, GETS CP, POTS, POCS; OPTIC NERVE PRESSURE/UNKNOWN CAUSE, hx 2 seizures last seizure 07/27,iron deficiency. LP SHUNT History of Any Multi-Drug Resistant Organisms: MRSA Date of last positivie culture/infection: 2014 MDRO Source:: left foot Past Surgical History: No Surgical Hx Reported Additional Past Surgical History / Comment(s): WISDOM TEETH EXTRACTED; PAIN PROCEURES, lumbar shunt D&C Past Anesthesia/Blood Transfusion Reactions: Motion Sickness Past Psychological History: Anxiety, Depression, Panic Disorder, PTSD Smoking Status: Current every day smoker Past Alcohol Use History: Occasional Past Drug Use History: None Reported - Past Family History Mother Family Medical History: No Reported History General Exam Limitations: no limitations General appearance: alert, in no apparent distress Head exam: Present: atraumatic, normocephalic, normal inspection Eye exam: Present: normal appearance, PERRL, EOMI. Absent: scleral icterus, conjunctival injection, periorbital swelling ENT exam: Present: normal exam, mucous membranes moist Neck exam: Present: normal inspection. Absent: tenderness, meningismus, lymphadenopathy Respiratory exam: Present: normal lung sounds bilaterally. Absent: respiratory distress, wheezes, rales, rhonchi, stridor Cardiovascular Exam: Present: regular rate, normal rhythm, normal heart sounds. Absent: systolic murmur, diastolic murmur, rubs, gallop, clicks GI/Abdominal exam: Present: soft, normal bowel sounds. Absent: distended, tende rness, guarding, rebound, rigid Extremities exam: Present: normal inspection, full ROM, normal capillary refill. Absent: tenderness, pedal edema, joint swelling, calf tenderness Back exam: Present: normal inspection Neurological exam: Present: alert, oriented X3, CN II-XII intact Psychiatric exam: Present: normal affect, normal mood Skin exam: Present: warm, dry, intact, normal color, other (The patient does have a partially healed incision over her right lumbar spine. No step-offs or deformities appreciated. Skin is well approximated. There is subcutaneous swelling. There is a small amount of clear drainage. No bloody or pus drainage). Absent: rash Course Vital Signs 06/04/19 20:13 Temperature 98.3 F Pulse Rate 110 H Respiratory 16 Rate Blood Pressure 119/84 O2 Sat by Pulse 97 Oximetry Medical Decision Making - Medical Decision Making Upon arrival the patient is placed in room 2. A thorough history and physical exam is performed. Examination of the patient's surgical site does reveal swelling to the soft tissue. She also has a small amount of clear drainage coming from her incision site. Incision does appear to be approximated. No cellulitic changes. I did recommend a shunt study as well as a CT of the patient's brain. The patient refused stating that she wants the workup that is requested by her neurosurgeon. I did call discuss case with Dr. Clayton who did recommend that the patient be transferred to [facility]. I did call discuss case with Dr. Osborne who does accept transfer. The patient will go by private vehicle. She remained in stable condition and was transferred. 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 Proceed straight there. Is patient prescribed a controlled substance at d/c from ED?: No Referrals: Tam Aggarwal MD [Primary Care Provider] - 1-2 days Time of Disposition: 21:29
== END 2019-06-04 21:40 | disposition other institution (70) ==
LOC: EC 20:08
DX: T85.09XA Other mechanical complication of ventricular intracranial (communicating) shunt, initial encounter (principal); R51 Headache; G40.909 Epilepsy, unspecified, not intractable, without status epilepticus; F17.200 Nicotine dependence, unspecified, uncomplicated; I25.2 Old myocardial infarction; Z79.3 Long term (current) use of hormonal contraceptives; Z79.890 Hormone replacement therapy; Z79.899 Other long term (current) drug therapy; Z88.8 Allergy status to other drugs, medicaments and biological substances; Z88.1 Allergy status to other antibiotic agents; Z88.0 Allergy status to penicillin; Z88.5 Allergy status to narcotic agent; Z91.048 Other nonmedicinal substance allergy status; Z98.2 Presence of cerebrospinal fluid drainage device; Z86.69 Personal history of other diseases of the nervous system and sense organs; Z86.14 Personal history of Methicillin resistant Staphylococcus aureus infection; Z53.29 Procedure and treatment not carried out because of patient's decision for other reasons
CPT/HCPCS: 99284

== ENCOUNTER 2019-06-27 15:25 | Emergency (ER) | payer OTHER ==
[2019-06-27 15:35] VITALS: BP 111/77; PULSE 85; RESP 18; TEMP 98.2
[2019-06-27] MEDS ORDERED: SODIUM CHLORIDE 0.9% 1,000 ML IV STA (15:59)
[2019-06-27] MEDS ORDERED: ONDANSETRON 4 MG/2 ML VIAL IVP STA (15:59)
[2019-06-27] MEDS ORDERED: LOPERAMIDE 2 MG CAP PO STA (16:00)
--- NOTE | 2019-06-27 16:13 | ED ---
Nausea/Vomiting/Diarrhea HPI - General Chief complaint: Nausea/Vomiting/Diarrhea Stated complaint: diarrhea Time Seen by Provider: 06/27/19 15:48 Source: patient Mode of arrival: ambulatory Limitations: no limitations - History of Present Illness Initial comments: Patient is a 24-year-old female presenting to the emergency Department with complaints of diarrhea 7 days. Patient states she has tried Imodium for relief and only had temporary relief. Patient denies fever, chills. Patient has mild abdominal pain and mild nausea. Patient denies vomiting, urinary complaints. Patient denies recent antibiotic use or recent travel. Patient has history of fatty liver disease. Patient has history of abdominal hernia repair, no other abdominal surgeries. Patient has no other complaints at this time. Upon arrival to ER, vital signs are stable, afebrile. - Related Data Home Medications Medication Instructions Recorded Confirmed Levothyroxine Sodium 25 mcg PO DAILY 09/19/18 06/27/19 lamoTRIgine [LaMICtal] 25 mg PO BID 05/08/19 06/27/19 medroxyPROGESTERone [Provera] 10 mg PO DIRECTED 05/15/19 06/27/19 Melatonin 5 mg PO HS 06/27/19 06/27/19 acetaZOLAMIDE [Diamox Sequels] 500 mg PO BID 06/27/19 06/27/19 Previous Rx's Medication Instructions Recorded Ondansetron Odt [Zofran Odt] 4 mg PO Q8HR PRN #10 tab 06/27/19 Allergies Allergy/AdvReac Type Severity Reaction Status Date / Time morphine Allergy Intermediate Rash/Hives Verified 06/27/19 16:09 Penicillins Allergy Intermediate Rash/Hives Verified 06/27/19 16:09 clarithromycin [From Biaxin] Allergy Rash/Hives Verified 06/27/19 16:09 heparin Allergy RASH/HIVES-SEE Verified 06/27/19 16:09 COMMENTS sterie strips Allergy Blisters Uncoded 06/27/19 16:09 Review of Systems ROS Statement: Those systems with pertinent positive or pertinent negative responses have been documented in the HPI. ROS Other: All systems not noted in ROS Statement are negative. Past Medical History Past Medical History: Asthma, Chest Pain / Angina, GERD/Reflux, Musculoskeletal Disorder, Syncope Additional Past Medical History / Comment(s): CHILDHOOD ASTHMA; Seasonal Allergies; HX PANCREATITIS; HX LT ANKLE FX, "POPS" OUT OF PLACE OCC; C/O FREQ PALPITATIONS, GETS CP, POTS, POCS; OPTIC NERVE PRESSURE/UNKNOWN CAUSE, hx 2 seizures last seizure 07/27,iron deficiency. LP SHUNT History of Any Multi-Drug Resistant Organisms: MRSA Date of last positivie culture/infection: 2014 MDRO Source:: left foot Past Surgical History: No Surgical Hx Reported Additional Past Surgical History / Comment(s): WISDOM TEETH EXTRACTED; PAIN PROCEURES, lumbar shunt D&C Past Anesthesia/Blood Transfusion Reactions: Motion Sickness Past Psychological History: Anxiety, Depression, Panic Disorder, PTSD Smoking Status: Current every day smoker Past Alcohol Use History: Occasional, Rare Past Drug Use History: None Reported - Past Family History Mother Family Medical History: No Reported History General Exam - General Exam Comments Initial Comments: GENERAL: Well-appearing, well-nourished and in no acute distress. Obese. HEAD: Atraumatic, normocephalic. EYES: Pupils equal round and reactive to light, extraocular movements intact, sclera anicteric, conjunctiva are normal. ENT: TMs normal, nares patent, oropharynx clear without exudates. Moist mucous membranes. NECK: Normal range of motion, supple without lymphadenopathy or JVD. LUNGS: Breath sounds clear to auscultation bilaterally and equal. No wheezes rales or rhonchi. HEART: Regular rate and rhythm without murmurs, rubs or gallops. ABDOMEN: Mild epigastric tenderness. Soft, normoactive bowel sounds. No guarding, no rebound. No masses appreciated. : Deferred EXTREMITIES: Normal range of motion, no pitting or edema. No clubbing or cyanosis. NEUROLOGICAL: Cranial nerves II through XII grossly intact. Normal speech, normal gait. PSYCH: Normal mood, normal affect. SKIN: Warm, Dry, normal turgor, no rashes or lesions noted. Limitations: no limitations Course Vital Signs 06/27/19 15:32 Temperature 98.2 F Pulse Rate 85 Respiratory 18 Rate Blood Pressure 111/77 O2 Sat by Pulse 96 Oximetry Medical Decision Making - Medical Decision Making Patient is a 24-year-old female presenting with diarrhea for approximately 7 days. Patient only has mild lower abdominal pain as well as mild nausea. Patient denies any fever, chills. Patient denies recent antibiotic or travel. On exam patient has mild mid epigastric tenderness. Rest of exam is unremarkable. CBC, CMP is within normal limits. Liver enzymes are normal. UA is normal. She is not . Patient was given fluids and Zofran and reports improvement in symptoms. It was discussed with patient that this is most likely viral in nature or related to food. Patient is stable for discharge at this time. Patient is in agreement with this plan of care. Return parameters were discussed with the patient she verbalized understanding. Case discussed with Dr. Ann. - Lab Data Result diagrams: 06/27/19 16:12 06/27/19 16:12 Lab Results 06/27/19 06/27/19 06/27/19 Range/Units 16:12 16:12 16:48 WBC 10.1 (3.8-10.6) k/uL RBC 4.97 (3.80-5.40) m/uL Hgb 13.7 (11.4-16.0) gm/dL Hct 40.2 (34.0-46.0) % MCV 80.9 (80.0-100.0) fL MCH 27.5 (25.0-35.0) pg MCHC 34.0 (31.0-37.0) g/dL RDW 13.5 (11.5-15.5) % Plt Count 263 (150-450) k/uL Neutrophils % 59 % Lymphocytes % 32 % Monocytes % 3 % Eosinophils % 4 % Basophils % 1 % Neutrophils # 6.0 (1.3-7.7) k/uL Lymphocytes # 3.2 (1.0-4.8) k/uL Monocytes # 0.3 (0-1.0) k/uL Eosinophils # 0.4 (0-0.7) k/uL Basophils # 0.1 (0-0.2) k/uL Sodium 143 (137-145) mmol/L Potassium 4.2 (3.5-5.1) mmol/L Chloride 111 H (98-107) mmol/L Carbon Dioxide 19 L (22-30) mmol/L Anion Gap 13 mmol/L BUN 13 (7-17) mg/dL Creatinine 0.71 (0.52-1.04) mg/dL Est GFR (CKD-EPI)AfAm >90 (>60 ml/min/1.73 sqM) Est GFR (CKD-EPI)NonAf >90 (>60 ml/min/1.73 sqM) Glucose 84 (74-99) mg/dL Calcium 9.5 (8.4-10.2) mg/dL Total Bilirubin 0.5 (0.2-1.3) mg/dL AST 31 (14-36) U/L ALT 43 (9-52) U/L Alkaline Phosphatase 69 (38-126) U/L Total Protein 7.3 (6.3-8.2) g/dL Albumin 4.3 (3.5-5.0) g/dL Urine Color Urine Appearance (Clear) Urine pH (5.0-8.0) Ur Specific [place] (1.001-1.035) Urine Protein (Negative) Urine Glucose (UA) (Negative) Urine Ketones (Negative) Urine Blood (Negative) Urine Nitrite (Negative) Urine Bilirubin (Negative) Urine Urobilinogen (<2.0) mg/dL Ur Leukocyte Esterase (Negative) Urine RBC (0-5) /hpf Urine WBC (0-5) /hpf Ur Squamous Epith Cells (0-4) /hpf Urine Bacteria (None) /hpf Urine Mucus (None) /hpf Urine HCG, Qual Not Detected (Not Detectd) 06/27/19 Range/Units 16:48 WBC (3.8-10.6) k/uL RBC (3.80-5.40) m/uL Hgb (11.4-16.0) gm/dL Hct (34.0-46.0) % MCV (80.0-100.0) fL MCH (25.0-35.0) pg MCHC (31.0-37.0) g/dL RDW (11.5-15.5) % Plt Count (150-450) k/uL Neutrophils % % Lymphocytes % % Monocytes % % Eosinophils % % Basophils % % Neutrophils # (1.3-7.7) k/uL Lymphocytes # (1.0-4.8) k/uL Monocytes # (0-1.0) k/uL Eosinophils # (0-0.7) k/uL Basophils # (0-0.2) k/uL Sodium (137-145) mmol/L Potassium (3.5-5.1) mmol/L Chloride (98-107) mmol/L Carbon Dioxide (22-30) mmol/L Anion Gap mmol/L BUN (7-17) mg/dL Creatinine (0.52-1.04) mg/dL Est GFR (CKD-EPI)AfAm (>60 ml/min/1.73 sqM) Est GFR (CKD-EPI)NonAf (>60 ml/min/1.73 sqM) Glucose (74-99) mg/dL Calcium (8.4-10.2) mg/dL Total Bilirubin (0.2-1.3) mg/dL AST (14-36) U/L ALT (9-52) U/L Alkaline Phosphatase (38-126) U/L Total Protein (6.3-8.2) g/dL Albumin (3.5-5.0) g/dL Urine Color Yellow Urine Appearance Clear (Clear) Urine pH 5.5 (5.0-8.0) Ur Specific [place] 1.026 (1.001-1.035) Urine Protein Negative (Negative) Urine Glucose (UA) Negative (Negative) Urine Ketones Negative (Negative) Urine Blood Small H (Negative) Urine Nitrite Negative (Negative) Urine Bilirubin Negative (Negative) Urine Urobilinogen <2.0 (<2.0) mg/dL Ur Leukocyte Esterase Negative (Negative) Urine RBC <1 (0-5) /hpf Urine WBC 1 (0-5) /hpf Ur Squamous Epith Cells 2 (0-4) /hpf Urine Bacteria Rare H (None) /hpf Urine Mucus Occasional H (None) /hpf Urine HCG, Qual (Not Detectd) Disposition Clinical Impression: Diarrhea, Dehydration Disposition: HOME SELF-CARE Condition: Stable Instructions (If sedation given, give patient instructions): Acute Diarrhea (ED) Additional Instructions: Please return to the Emergency Department if symptoms worsen or any other concerns. Continue with Imodium and increase fluid/food intake. Prescriptions: Ondansetron Odt [Zofran Odt] 4 mg PO Q8HR PRN #10 tab PRN Reason: Nausea Is patient prescribed a controlled substance at d/c from ED?: No Referrals: Tam Aggarwal MD [Primary Care Provider] - 1-2 days
[2019-06-27 16:24] LABS: Basophils # (A) 0.1 k/uL (0-0.2); Basophils % (A) 1 %; Eosinophils # (A) 0.4 k/uL (0-0.7); Eosinophils % (A) 4 %; HCT 40.2 % (34.0-46.0); HGB 13.7 gm/dL (11.4-16.0); Lymphocytes # (A) 3.2 k/uL (1.0-4.8); Lymphocytes % (A) 32 %; MCH 27.5 pg (25.0-35.0); MCV 80.9 fL (80.0-100.0); Mean Platelet Volume 6.5; Monocytes # (A) 0.3 k/uL (0-1.0); Monocytes % (A) 3 %; Neutrophils % (A) 59 %; Platelet Count 263 k/uL (150-450); RBC 4.97 m/uL (3.80-5.40); RDW 13.5 % (11.5-15.5); WBC 10.1 k/uL (3.8-10.6)
[2019-06-27 16:41] LABS: ALT 43 U/L (9-52); AST 31 U/L (14-36); African American GFR (CKD) >90 (>60 ml/min/1.73 sqM); Albumin 4.3 g/dL (3.5-5.0); Alkaline Phosphatase 69 U/L (38-126); Anion Gap 13 mmol/L; Blood Urea Nitrogen 13 mg/dL (7-17); Calcium 9.5 mg/dL (8.4-10.2); Carbon Dioxide 19 mmol/L (22-30); Chloride 111 mmol/L (98-107); Glucose 84 mg/dL (74-99); Potassium 4.2 mmol/L (3.5-5.1); Sodium 143 mmol/L (137-145); Total Bilirubin 0.5 mg/dL (0.2-1.3); Total Protein 7.3 g/dL (6.3-8.2)
[2019-06-27 17:01] LABS: Appearance,Urine Clear (Clear); Bacteria,Urine Rare /hpf; Bilirubin,Urine Negative (Negative); Blood,Urine Small (Negative); Color,Urine Yellow; Glucose,Urine (UA) Negative (Negative); Ketones,Urine Negative (Negative); Leukocyte Esterase,Urine Negative (Negative); Mucus,Urine Occasional /hpf; Nitrite,Urine Negative (Negative); PH, Urine 5.5 (5.0-8.0); Protein,Urine Negative (Negative); RBC,Urine <1 /hpf (0-5); Specific Gravity,Urine 1.026 (1.001-1.035); Squamous Epithelial Cell,Urine 2 /hpf (0-4); Urobilinogen,Urine <2.0 mg/dL (<2.0)
== END 2019-06-27 17:55 | disposition home or self-care (01) ==
LOC: EC 15:25
DX: E86.0 Dehydration (principal); R19.7 Diarrhea, unspecified; R10.30 Lower abdominal pain, unspecified; R11.0 Nausea; F32.9 Major depressive disorder, single episode, unspecified; F17.200 Nicotine dependence, unspecified, uncomplicated; Z88.0 Allergy status to penicillin; Z88.1 Allergy status to other antibiotic agents; Z88.5 Allergy status to narcotic agent; Z88.8 Allergy status to other drugs, medicaments and biological substances; Z91.048 Other nonmedicinal substance allergy status; Z79.890 Hormone replacement therapy; Z79.899 Other long term (current) drug therapy; Z86.14 Personal history of Methicillin resistant Staphylococcus aureus infection; Z87.19 Personal history of other diseases of the digestive system; Z86.69 Personal history of other diseases of the nervous system and sense organs; Z98.890 Other specified postprocedural states
CPT/HCPCS: 99284; 96374; 96361; 36415; 80053; 85025; 81001; 81025; J2405

== ENCOUNTER 2019-07-30 06:35 | Emergency (ER) | payer OTHER ==
[2019-07-30 06:42] VITALS: RESP 16; TEMP 97.9
[2019-07-30] MEDS ORDERED: ORPHENADRINE 30 MG/ML 2 ML VIAL IVP STA (07:44)
[2019-07-30] MEDS ORDERED: diphenhydrAMINE 50 MG/ML 1 ML VIAL IVP STA (07:44)
[2019-07-30] MEDS ORDERED: KETOROLAC 30 MG/ML 1 ML VIAL IVP STA (07:44)
[2019-07-30] MEDS ORDERED: SODIUM CHLORIDE 0.9% 500 ML 500 ML IV ONE (07:45)
[2019-07-30] MEDS ORDERED: METOCLOPRAMIDE 5 MG/ML 2 ML VIAL IVP STA (07:45)
--- NOTE | 2019-07-30 07:48 | ED ---
Headache HPI - General Chief Complaint: Headache Stated Complaint: Headache Time Seen by Provider: 07/30/19 07:37 Source: patient, RN notes reviewed Mode of arrival: ambulatory Limitations: no limitations - History of Present Illness Initial Comments: 24-year-old female presents emergency Department chief complaint of headache. Patient has chronic headaches and which she has been diagnosed with pseudotumor cerebri Patient states that she does have a shunt. Patient occasionally does have headaches this is not the worse headache of her leg. Patient states that she sees a neurologist at [facility]. Patient states that this headache is consistent with her normal headaches. Patient denies any current vomiting states that she has slight nausea but denies any blurred vision, double vision, focal weakness. Patient call neurology who advised her just to be checked out. Patient does have close follow-up. - Related Data Home Medications Medication Instructions Recorded Confirmed Levothyroxine Sodium 25 mcg PO DAILY 09/19/18 07/30/19 medroxyPROGESTERone [Provera] 10 mg PO DIRECTED 05/15/19 07/30/19 acetaZOLAMIDE [Diamox Sequels] 500 mg PO BID 06/27/19 07/30/19 Atomoxetine HCl [Strattera] 40 mg PO DAILY 07/30/19 07/30/19 Ibuprofen [Motrin] 800 mg PO TID PRN 07/30/19 07/30/19 Vitamin E 100 unit PO DAILY 07/30/19 07/30/19 lamoTRIgine [LaMICtal] 100 mg PO DAILY 07/30/19 07/30/19 Allergies Allergy/AdvReac Type Severity Reaction Status Date / Time morphine Allergy Intermediate Rash/Hives Verified 07/30/19 09:06 Penicillins Allergy Intermediate Rash/Hives Verified 07/30/19 09:06 clarithromycin [From Biaxin] Allergy Rash/Hives Verified 07/30/19 09:06 heparin Allergy RASH/HIVES-SEE Verified 07/30/19 09:06 COMMENTS sterie strips Allergy Blisters Uncoded 07/30/19 09:06 Review of Systems ROS Statement: Those systems with pertinent positive or pertinent negative responses have been documented in the HPI. ROS Other: All systems not noted in ROS Statement are negative. Past Medical History Past Medical History: Asthma, Chest Pain / Angina, GERD/Reflux, Musculoskeletal Disorder, Syncope Additional Past Medical History / Comment(s): CHILDHOOD ASTHMA; Seasonal Allergies; HX PANCREATITIS; HX LT ANKLE FX, "POPS" OUT OF PLACE OCC; C/O FREQ PALPITATIONS, GETS CP, POTS, POCS; OPTIC NERVE PRESSURE/UNKNOWN CAUSE, hx 2 seizures last seizure 07/27,iron deficiency. LP SHUNT History of Any Multi-Drug Resistant Organisms: MRSA Date of last positivie culture/infection: 2014 MDRO Source:: left foot Past Surgical History: No Surgical Hx Reported Additional Past Surgical History / Comment(s): WISDOM TEETH EXTRACTED; PAIN PROCEURES, lumbar shunt D&C Past Anesthesia/Blood Transfusion Reactions: Motion Sickness Past Psychological History: Anxiety, Depression, Panic Disorder, PTSD Smoking Status: Current every day smoker Past Alcohol Use History: Occasional, Rare Past Drug Use History: None Reported - Past Family History Mother Family Medical History: No Reported History General Exam Limitations: no limitations General appearance: alert, in no apparent distress Head exam: Present: atraumatic, normocephalic, normal inspection Eye exam: Present: normal appearance, PERRL, EOMI. Absent: scleral icterus, conjunctival injection, periorbital swelling ENT exam: Present: normal exam, normal oropharynx, mucous membranes moist, TM's normal bilaterally Neck exam: Present: normal inspection, full ROM. Absent: tenderness, menin gismus, lymphadenopathy Respiratory exam: Present: normal lung sounds bilaterally. Absent: respiratory distress, wheezes, rales, rhonchi, stridor Cardiovascular Exam: Present: regular rate, normal rhythm, normal heart sounds. Absent: systolic murmur, diastolic murmur, rubs, gallop, clicks GI/Abdominal exam: Present: soft, normal bowel sounds. Absent: distended, tenderness, guarding, rebound, rigid Neurological exam: Present: alert, oriented X3, CN II-XII intact, normal gait, reflexes normal, other (Finger to nose intact bilaterally). Absent: motor sensory deficit Skin exam: Present: warm, dry, intact, normal color. Absent: rash Course Vital Signs 07/30/19 07/30/19 06:40 10:00 Temperature 97.9 F Pulse Rate 106 H 73 Respiratory 16 16 Rate Blood Pressure 104/72 123/62 O2 Sat by Pulse 98 98 Oximetry Medical Decision Making - Medical Decision Making Patient is improved after IV meds. She is neurologically intact with a history of pseudotumor cerebri and chronic headaches. Patient will follow-up with her neurologist tomorrow. Patient's feels comfortable with discharge and return parameters were discussed. Disposition Clinical Impression: Headache Disposition: HOME SELF-CARE Condition: Stable Instructions (If sedation given, give patient instructions): Acute Headache (ED) Additional Instructions: Please return to the Emergency Department if symptoms worsen or any other concerns. Is patient prescribed a controlled substance at d/c from ED?: No Referrals: Tam Aggarwal MD [Primary Care Provider] - 1-2 days Time of Disposition: 10:12
[2019-07-30] MEDS ORDERED: ONDANSETRON 4 MG/2 ML VIAL IVP STA (09:23)
[2019-07-30] MEDS ORDERED: BUTALB/APAP/CAFF 50-325-40MG TAB PO STA (09:23)
[2019-07-30 10:11] VITALS: BP 123/62; PULSE 73
== END 2019-07-30 10:14 | disposition home or self-care (01) ==
LOC: EC 06:35
DX: R51 Headache (principal); R11.0 Nausea; G93.2 Benign intracranial hypertension; F32.9 Major depressive disorder, single episode, unspecified; F17.200 Nicotine dependence, unspecified, uncomplicated; Z88.0 Allergy status to penicillin; Z88.1 Allergy status to other antibiotic agents; Z88.5 Allergy status to narcotic agent; Z88.8 Allergy status to other drugs, medicaments and biological substances; Z91.048 Other nonmedicinal substance allergy status; Z79.890 Hormone replacement therapy; Z79.899 Other long term (current) drug therapy; Z86.14 Personal history of Methicillin resistant Staphylococcus aureus infection; Z98.2 Presence of cerebrospinal fluid drainage device
CPT/HCPCS: 99283; 96374; 96375 ×4; 96361; J1200; J2360; J2765; J2405; J1885

== ENCOUNTER 2019-07-31 14:11 | Emergency (ER) | payer OTHER ==
[2019-07-31 14:38] VITALS: TEMP 98.5
--- NOTE | 2019-07-31 15:06 | ED ---
Headache HPI - General Chief Complaint: Headache Stated Complaint: Headache Time Seen by Provider: 07/31/19 14:41 Source: patient, RN notes reviewed Mode of arrival: ambulatory Limitations: no limitations - History of Present Illness Initial Comments: This is a 24-year-old female presents emergency Department chief complaint of a headache. Patient's had worsening headaches over the last few days. Patient was seen here yesterday and rates from did have some improvement and was discharged. Patient called neurologist today who stated that she could not get her in advised to go back to the emergency department for headache. Patient does have a history of pseudotumor cerebri. Patient does have a shunt in her back. Patient states that she's had a malfunction in the past. Patient states this is a spinal headache. Patient has intermittent visual changes. She has not some nausea. - Related Data Home Medications Medication Instructions Recorded Confirmed Levothyroxine Sodium 25 mcg PO DAILY 09/19/18 07/31/19 medroxyPROGESTERone [Provera] 10 mg PO DIRECTED 05/15/19 07/31/19 acetaZOLAMIDE [Diamox Sequels] 500 mg PO BID 06/27/19 07/31/19 Atomoxetine HCl [Strattera] 40 mg PO DAILY 07/30/19 07/31/19 lamoTRIgine [LaMICtal] 100 mg PO DAILY 07/30/19 07/31/19 Allergies Allergy/AdvReac Type Severity Reaction Status Date / Time morphine Allergy Intermediate Rash/Hives Verified 07/31/19 15:03 Penicillins Allergy Intermediate Rash/Hives Verified 07/31/19 15:03 clarithromycin [From Biaxin] Allergy Rash/Hives Verified 07/31/19 15:03 heparin Allergy RASH/HIVES-SEE Verified 07/31/19 15:03 COMMENTS sterie strips Allergy Blisters Uncoded 07/31/19 14:39 Review of Systems ROS Statement: Those systems with pertinent positive or pertinent negative responses have been documented in the HPI. ROS Other: All systems not noted in ROS Statement are negative. Past Medical History Past Medical History: Asthma, Chest Pain / Angina, GERD/Reflux, Musculoskeletal Disorder, Syncope Additional Past Medical History / Comment(s): CHILDHOOD ASTHMA; Seasonal Allergies; HX PANCREATITIS; HX LT ANKLE FX, "POPS" OUT OF PLACE OCC; C/O FREQ PALPITATIONS, GETS CP, POTS, POCS; OPTIC NERVE PRESSURE/UNKNOWN CAUSE, hx 2 seizures last seizure 07/27,iron deficiency. LP SHUNT History of Any Multi-Drug Resistant Organisms: MRSA Date of last positivie culture/infection: 2014 MDRO Source:: left foot Past Surgical History: No Surgical Hx Reported Additional Past Surgical History / Comment(s): WISDOM TEETH EXTRACTED; PAIN PROCEURES, lumbar shunt D&C Past Anesthesia/Blood Transfusion Reactions: Motion Sickness Past Psychological History: Anxiety, Depression, Panic Disorder, PTSD Smoking Status: Current every day smoker Past Alcohol Use History: Occasional, Rare Past Drug Use History: None Reported - Past Family History Mother Family Medical History: No Reported History General Exam Limitations: no limitations General appearance: alert, in no apparent distress Head exam: Present: atraumatic, normocephalic, normal inspection Eye exam: Present: normal appearance, PERRL, EOMI. Absent: scleral icterus, conjunctival injection, periorbital swelling ENT exam: Present: normal exam, normal oropharynx, mucous membranes moist Neck exam: Present: normal inspection, full ROM. Absent: tenderness, meningismus, lymphadenopathy Respiratory exam: Present: normal lung sounds bilaterally. Absent: respiratory distress, wheezes, rales, rhonchi, stridor Cardiovascular Exam: Present: regular rate, normal rhythm, normal heart sounds. Absent: systolic murmur, diastolic murmur, rubs, gallop, clicks Neurological exam: Present: alert, oriented X3, CN II-XII intact, reflexes normal. Absent: motor sensory deficit Skin exam: Present: warm, dry, intact, normal color. Absent: rash Course Vital Signs 07/31/19 14:36 Temperature 98.5 F Pulse Rate 112 H Respiratory 20 Rate Blood Pressure 158/96 O2 Sat by Pulse 95 Oximetry Medical Decision Making - Medical Decision Making Patient has recurrent headaches which is chronic for her though she does have underlying pseudotumor cerebri. I did do a shunt series on her back which does not show any abnormality's. I discussed the case with her neurosurgeon office in which they will see her tomorrow at 12 PM and herself feel office. Patient provided pain medication for the night patient is neurologically intact. Disposition Clinical Impression: Headache Disposition: HOME SELF-CARE Condition: Stable Instructions (If sedation given, give patient instructions): Acute Headache (ED) Additional Instructions: Follow-up with your neurosurgeon tomorrow at 12 PM at their [place] office.Please return to the Emergency Department if symptoms worsen or any other concerns. Is patient prescribed a controlled substance at d/c from ED?: No Referrals: Tam Aggarwal MD [Primary Care Provider] - 1-2 days Time of Disposition: 17:26
--- NOTE | 2019-07-31 16:03 | XR ---
KUB HISTORY: Shunt placement Frontal KUB submitted on 2 images, correlation lumbar spine same date. Shunt tubing is present overlying the patient's back, tubing and connectors are present over the lowe r abdomen anteriorly. Catheter tip is within the pelvis. IMPRESSION: Tubing as described.
--- NOTE | 2019-07-31 16:05 | XR ---
EXAMINATION TYPE: XR lumbar spine 2 or 3V DATE OF EXAM: 07/31/2019 COMPARISON: NONE HISTORY: 24-year-old female with back shunt placement, headache TECHNIQUE: 3 views FINDINGS: Dextroconvex scoliosis centered along the upper lumbar spine. Vertebral body heights are preserved and alignment is maintained. A shunt catheter has its distal aspect looped in the subcutaneous tissues of the right paramedian low er back. The catheter extends off to the right along the upper pelvis where a 4 ball antigravity valv e is outside the field of view. Radiolucent segments are not included on this portion of the exam. Th e opposite end of the catheter extends into the left side of the pelvis. IMPRESSION: 1. No vertebral compression collapse or malalignment. 2. Shunt catheter. 1 end is looped within the left side of the pelvis. The opposite end loops within the right paramedian posterior subcutaneous adipose layer of the mid to lower lumbar spine. 3. The 4 ball antigravity valve is on the right side and is outside the field of view on this exam.
[2019-07-31] MEDS ORDERED: HYDROmorphone 1 MG/ML 1 ML SYRINGE IM STA (16:40)
[2019-07-31] MEDS ORDERED: DIAZEPAM 5 MG TAB PO STA (16:41)
[2019-07-31] MEDS ORDERED: ACET/COD 300 MG/30 MG STARTER PACK 6 TAB BTL PO STA (17:26)
[2019-07-31 17:43] VITALS: BP 114/84; PULSE 80; RESP 16
== END 2019-07-31 17:40 | disposition home or self-care (01) ==
LOC: EC 14:11
DX: G93.2 Benign intracranial hypertension (principal); I25.2 Old myocardial infarction; G40.909 Epilepsy, unspecified, not intractable, without status epilepticus; F90.9 Attention-deficit hyperactivity disorder, unspecified type; F32.9 Major depressive disorder, single episode, unspecified; F41.9 Anxiety disorder, unspecified; K21.9 Gastro-esophageal reflux disease without esophagitis; F17.200 Nicotine dependence, unspecified, uncomplicated; Z79.3 Long term (current) use of hormonal contraceptives; Z79.899 Other long term (current) drug therapy; Z88.0 Allergy status to penicillin; Z88.5 Allergy status to narcotic agent; Z88.1 Allergy status to other antibiotic agents; Z88.8 Allergy status to other drugs, medicaments and biological substances; Z91.09 Other allergy status, other than to drugs and biological substances; Z98.2 Presence of cerebrospinal fluid drainage device; Z86.14 Personal history of Methicillin resistant Staphylococcus aureus infection
CPT/HCPCS: 72100; 74018; 96372; 99284; J1170

== ENCOUNTER → 2019-08-07 | Outpatient (CLI) | payer OTHER ==
[2019-08-07 16:33] LABS: Basophils # (A) 0.1 k/uL (0-0.2); Basophils % (A) 1 %; Eosinophils # (A) 0.3 k/uL (0-0.7); Eosinophils % (A) 3 %; HCT 41.5 % (34.0-46.0); HGB 14.5 gm/dL (11.4-16.0); Lymphocytes # (A) 3.1 k/uL (1.0-4.8); Lymphocytes % (A) 31 %; MCH 28.8 pg (25.0-35.0); MCHC 34.9 g/dL (31.0-37.0); MCV 82.6 fL (80.0-100.0); Mean Platelet Volume 5.8; Monocytes # (A) 0.3 k/uL (0-1.0); Monocytes % (A) 3 %; Neutrophils # (A) 6.3 k/uL (1.3-7.7); Neutrophils % (A) 61 %; Platelet Count 307 k/uL (150-450); RBC 5.03 m/uL (3.80-5.40); RDW 13.6 % (11.5-15.5); WBC 10.3 k/uL (3.8-10.6)
[2019-08-07 16:38] LABS: Appearance,Urine Cloudy (Clear); Bacteria,Urine Few /hpf; Bilirubin,Urine Negative (Negative); Blood,Urine Negative (Negative); Color,Urine Yellow; Glucose,Urine (UA) Negative (Negative); INR 0.9 (<1.2); Ketones,Urine Negative (Negative); Leukocyte Esterase,Urine Negative (Negative); Nitrite,Urine Negative (Negative); Partial Thromboplastin Time 27.1 sec (22.0-30.0); Protein,Urine Negative (Negative); Prothrombin Time 9.8 sec (9.0-12.0); RBC,Urine 2 /hpf (0-5); Specific Gravity,Urine 1.018 (1.001-1.035); Squamous Epithelial Cell,Urine 2 /hpf (0-4); Urobilinogen,Urine <2.0 mg/dL (<2.0); WBC,Urine 4 /hpf (0-5)
--- NOTE | 2019-08-07 16:44 | XR ---
EXAMINATION TYPE: XR chest 2V DATE OF EXAM: 08/07/2019 COMPARISON: 05/08/2019 HISTORY: Preop clearance for shunt placement TECHNIQUE: Frontal and lateral views of the chest are obtained. FINDINGS: Heart and mediastinum are normal. Lungs are clear of infiltrate. There is no pleural effus ion. Bony thorax is intact. IMPRESSION: Normal chest. No change.
[2019-08-07 23:34] LABS: African American GFR (CKD) 121.3 (60.0-200.0); Albumin 4.7 g/dL (3.80-4.90); Albumin/Globulin Ratio 2.04 (1.60-3.17); Anion Gap 8.8 mmol/L (4.00-12.00); BUN/Creat Ratio 16.25 Ratio (12.00-20.00); Carbon Dioxide 25.2 mmol/L (21.6-31.8); Globulin 2.3 g/dL (1.6-3.3); Non-African American GFR(CKD) 104.6 (60.0-200.0); Potassium 4.1 mmol/L (3.5-5.5); Total Bilirubin 0.4 mg/dL (0.3-1.2)
== END | disposition home or self-care (01) ==
LOC: LABWHC1 15:53
PROVIDERS: ATTEND Neurological Surgery
DX: G93.2 Benign intracranial hypertension (principal); T85.09XA Other mechanical complication of ventricular intracranial (communicating) shunt, initial encounter
CPT/HCPCS: 36415; 71046; 80053; 81001; 85025; 85610; 85730; 93005

== ENCOUNTER 2019-08-21 10:24 | Emergency (ER) | payer OTHER ==
[2019-08-21 10:28] VITALS: RESP 18; TEMP 98
--- NOTE | 2019-08-21 10:42 | ED ---
Upper Extremity HPI - General Chief Complaint: Extremity Injury, Upper Stated Complaint: rt wrist injury Time Seen by Provider: 08/21/19 10:28 Source: patient, RN notes reviewed Mode of arrival: ambulatory Limitations: no limitations - History of Present Illness Initial Comments: 24-year-old female presents emergency Department with chief complaint right wrist pain. Patient states that she punctured breath and/or couple days ago. Patient states that she's had pain since injury isn't increasing. Mild swelling no ecchymosis. Patient is right-hand dominant. Patient offers no other complaints at this time no paresthesias. - Related Data Home Medications Medication Instructions Recorded Confirmed Levothyroxine Sodium 25 mcg PO DAILY 09/19/18 07/31/19 medroxyPROGESTERone [Provera] 10 mg PO DIRECTED 05/15/19 07/31/19 acetaZOLAMIDE [Diamox Sequels] 500 mg PO BID 06/27/19 07/31/19 Atomoxetine HCl [Strattera] 40 mg PO DAILY 07/30/19 07/31/19 lamoTRIgine [LaMICtal] 100 mg PO DAILY 07/30/19 07/31/19 Allergies Allergy/AdvReac Type Severity Reaction Status Date / Time morphine Allergy Intermediate Rash/Hives Verified 07/31/19 15:03 Penicillins Allergy Intermediate Rash/Hives Verified 07/31/19 15:03 clarithromycin [From Biaxin] Allergy Rash/Hives Verified 07/31/19 15:03 heparin Allergy RASH/HIVES-SEE Verified 07/31/19 15:03 COMMENTS sterie strips Allergy Blisters Uncoded 07/31/19 14:39 Review of Systems ROS Statement: Those systems with pertinent positive or pertinent negative responses have been documented in the HPI. ROS Other: All systems not noted in ROS Statement are negative. Past Medical History Past Medical History: Asthma, Chest Pain / Angina, GERD/Reflux, Musculoskeletal Disorder, Syncope Additional Past Medical History / Comment(s): CHILDHOOD ASTHMA; Seasonal Allergies; HX PANCREATITIS; HX LT ANKLE FX, "POPS" OUT OF PLACE OCC; C/O FREQ PALPITATIONS, GETS CP, POTS, POCS; OPTIC NERVE PRESSURE/UNKNOWN CAUSE, hx 2 seizures last seizure 07/27,iron deficiency. LP SHUNT History of Any Multi-Drug Resistant Organisms: MRSA Date of last positivie culture/infection: 2014 MDRO Source:: left foot Past Surgical History: No Surgical Hx Reported Additional Past Surgical History / Comment(s): WISDOM TEETH EXTRACTED; PAIN PROCEURES, lumbar shunt D&C Past Anesthesia/Blood Transfusion Reactions: Motion Sickness Past Psychological History: Anxiety, Depression, Panic Disorder, PTSD Smoking Status: Former smoker Past Alcohol Use History: None Reported, Rare Past Drug Use History: None Reported - Past Family History Mother Family Medical History: No Reported History General Exam Limitations: no limitations General appearance: alert, in no apparent distress Head exam: Present: atraumatic, normocephalic, normal inspection Eye exam: Present: normal appearance, PERRL, EOMI. Absent: scleral icterus, conjunctival injection, periorbital swelling ENT exam: Present: normal exam, mucous membranes moist Respiratory exam: Present: normal lung sounds bilaterally. Absent: respiratory distress, wheezes, rales, rhonchi, stridor Cardiovascular Exam: Present: regular rate, normal rhythm, normal heart sounds. Absent: systolic murmur, diastolic murmur, rubs, gallop, clicks Extremities exam: Present: other (Right wrist, right hand there is pain over the fifth metacarpal region, over the ulnar aspect there is minimal swelling neurovascular intact open lacerations patient has full range of motion no proximal forearm tenderness) Skin exam: Present: warm, dry, intact, normal color. Absent: rash Course Vital Signs 08/21/19 10:26 Temperature 98.0 F Pulse Rate 103 H Respiratory 18 Rate Blood Pressure 117/79 O2 Sat by Pulse 98 Oximetry Medical Decision Making - Medical Decision Making X-rays unremarkable the right hand and wrist. Patient has a right wrist pain. Patient be discharged with conservative treatment. Disposition Clinical Impression: Right wrist sprain Disposition: HOME SELF-CARE Condition: Stable Instructions (If sedation given, give patient instructions): Wrist Injury (ED) Additional Instructions: Please return to the Emergency Department if symptoms worsen or any other concerns. Is patient prescribed a controlled substance at d/c from ED?: No Referrals: Tam Aggarwal MD [Primary Care Provider] - 1-2 days Time of Disposition: 11:29
--- NOTE | 2019-08-21 11:00 | XR ---
EXAMINATION TYPE: XR hand complete RT DATE OF EXAM: 08/21/2019 CLINICAL HISTORY: Right lateral hand and wrist pain after punching a wall. TECHNIQUE: Frontal, lateral and oblique images of the right hand and wrist are obtained. COMPARISON: None FINDINGS: There is no acute fracture/dislocation evident in the right hand nor wrist. The joint spa lis in the right hand and wrist appear within normal limits. The overlying soft tissue appears unrem arkable. IMPRESSION: There is no acute fracture or dislocation in the right hand nor wrist.
[2019-08-21 11:39] VITALS: BP 134/94; PULSE 99
== END 2019-08-21 11:39 | disposition home or self-care (01) ==
LOC: EC 10:24
DX: S63.501A Unspecified sprain of right wrist, initial encounter (principal); F43.10 Post-traumatic stress disorder, unspecified; F32.9 Major depressive disorder, single episode, unspecified; F41.9 Anxiety disorder, unspecified; G40.909 Epilepsy, unspecified, not intractable, without status epilepticus; I25.2 Old myocardial infarction; Z79.3 Long term (current) use of hormonal contraceptives; Z79.890 Hormone replacement therapy; Z79.899 Other long term (current) drug therapy; Z88.5 Allergy status to narcotic agent; Z88.0 Allergy status to penicillin; Z88.8 Allergy status to other drugs, medicaments and biological substances; Z91.09 Other allergy status, other than to drugs and biological substances; Z87.891 Personal history of nicotine dependence; W22.03XA Walked into furniture, initial encounter; Y92.002 Bathroom of unspecified non-institutional (private) residence as the place of occurrence of the external cause
CPT/HCPCS: 99283

== ENCOUNTER → 2019-10-18 | Outpatient (CLI) | payer OTHER ==
--- NOTE | 2019-10-19 01:33 | MR ---
EXAMINATION TYPE: MR wrist RT wo con DATE OF EXAM: 10/18/2019 COMPARISON: None HISTORY: R wrist pain Multiplanar multiecho imaging of the right wrist was performed without contrast. The carpal bones appear intact. Joint spaces are fairly normal. Distal radius and ulna appear intact. There is soft tissue edema on the dorsum of the carpus. The extensor tendons appear intact. Flexor t endons appear intact. The visualized metacarpals appear intact. I see no bony destructive process. Th ere is no evidence of a fracture. There is no significant increased joint fluid. The triangular carti ce appears intact. There are a few tiny degenerative type cysts within the trapezoid. IMPRESSION: Subcutaneous edema on the dorsum of the carpal bones. No fracture seen. No evidence of ligament or te ndon tear.
== END | disposition home or self-care (01) ==
LOC: RADMRIMAIN 12:08
PROVIDERS: ATTEND Orthopaedic Surgery Sports Medicine
DX: S63.591A Other specified sprain of right wrist, initial encounter (principal)

== ENCOUNTER → 2020-04-26 | Outpatient (CLI) | payer OTHER | END | disposition home or self-care (01) | LOC: LABWHC1 09:50 | PROVIDERS: ATTEND Family Medicine | DX: Z20.828 Contact with and (suspected) exposure to other viral communicable diseases (principal) | CPT/HCPCS: U0003; C9803 ==

== ENCOUNTER → 2020-05-08 | Outpatient (CLI) | payer OTHER | END | disposition home or self-care (01) | LOC: LABWHC1 13:23 | PROVIDERS: ATTEND Family Medicine | DX: R05 Cough (principal); Z11.59 Encounter for screening for other viral diseases | CPT/HCPCS: U0003; C9803 ==

== ENCOUNTER → 2020-06-12 | Outpatient (CLI) | payer OTHER ==
--- NOTE | 2020-06-12 14:56 | FL ---
EXAMINATION TYPE: FL hysterosalpingography DATE OF EXAM: 06/12/2020 HISTORY: Infertility. Informed consent was obtained and all the patient's questions were answered. Multiple unsuccessful at tempts were made at localizing the cervix. Examination was terminated and this was discussed with the patient. IMPRESSION: Discontinued hysterosalpingogram.
== END | disposition home or self-care (01) ==
LOC: RADUSWWP 13:06
PROVIDERS: ATTEND Internal Medicine
DX: Z53.9 Procedure and treatment not carried out, unspecified reason (principal)
CPT/HCPCS: 74740

== ENCOUNTER 2020-07-11 18:32 | Emergency (ER) | payer OTHER ==
[2020-07-11 18:54] VITALS: BP 141/99; PULSE 103; RESP 18; TEMP 97.9
[2020-07-11] MEDS ORDERED: SODIUM CHLORIDE 0.9% 1,000 ML IV STA (19:18)
--- NOTE | 2020-07-11 19:22 | ED ---
Female Urogenital HPI - General Chief complaint: Vaginal Bleeding Stated complaint: urogenital Time Seen by Provider: 07/11/20 19:07 Source: patient Mode of arrival: ambulatory Limitations: no limitations - History of Present Illness Initial comments: Patient is a 25-year-old female presenting to the emergency Department with complaints of vaginal bleeding and cramping that started 2 days ago. Patient states on Wednesday, 4 days ago, she had a procedure at the IVF clinic to make sure the fallopian tubes are open. Patient was told that she will start having some spotting and mild bleeding that same day however the bleeding did not start until following day and she states that the bleeding has been heavy, heavier than her normal periods. She is also having cramping in the lower abdomen which is intermittent. She states she is also feeling very fatigued, some intermittent nausea. She denies any fever, chills, vomiting, diarrhea. She states she is not . She denies any chest pain or shortness of breath. She is no further complaints at this time. Upon arrival to the ER, patient's vital signs are stable. - Related Data Home Medications Medication Instructions Recorded Confirmed Levothyroxine Sodium 25 mcg PO DAILY 09/19/18 07/31/19 medroxyPROGESTERone [Provera] 10 mg PO DIRECTED 05/15/19 07/31/19 acetaZOLAMIDE [Diamox Sequels] 500 mg PO BID 06/27/19 07/31/19 Atomoxetine HCl [Strattera] 40 mg PO DAILY 07/30/19 07/31/19 lamoTRIgine [LaMICtal] 100 mg PO DAILY 07/30/19 07/31/19 Previous Rx's Medication Instructions Recorded guaiFENesin-DM 600/30MG [Mucinex 2 each PO Q12HR PRN #20 tab.er.[id number] 05/08/20 Dm] Allergies Allergy/AdvReac Type Severity Reaction Status Date / Time morphine Allergy Intermediate Rash/Hives Verified 07/11/20 18:54 Penicillins Allergy Intermediate Rash/Hives Verified 07/11/20 18:54 clarithromycin [From Biaxin] Allergy Rash/Hives Verified 07/11/20 18:54 heparin Allergy RASH/HIVES-SEE Verified 07/11/20 18:54 COMMENTS sterie strips Allergy Blisters Uncoded 07/11/20 18:54 Review of Systems ROS Statement: Those systems with pertinent positive or pertinent negative responses have been documented in the HPI. ROS Other: All systems not noted in ROS Statement are negative. Past Medical History Past Medical History: Asthma, Chest Pain / Angina, GERD/Reflux, Musculoskeletal Disorder, Syncope Additional Past Medical History / Comment(s): CHILDHOOD ASTHMA; Seasonal Allergies; HX PANCREATITIS; HX LT ANKLE FX, "POPS" OUT OF PLACE OCC; C/O FREQ PALPITATIONS, GETS CP, POTS, POCS; OPTIC NERVE PRESSURE/UNKNOWN CAUSE, hx 2 seizures last seizure 07/27,iron deficiency. LP SHUNT History of Any Multi-Drug Resistant Organisms: MRSA Date of last positivie culture/infection: 2014 MDRO Source:: left foot Past Surgical History: No Surgical Hx Reported Additional Past Surgical History / Comment(s): WISDOM TEETH EXTRACTED; PAIN PROCEURES, lumbar shunt D&C Past Anesthesia/Blood Transfusion Reactions: Motion Sickness Past Psychological History: Anxiety, Depression, Panic Disorder, PTSD Smoking Status: Current every day smoker Past Alcohol Use History: None Reported, Rare Past Drug Use History: None Reported - Past Family History Mother Family Medical History: No Reported History General Exam - General Exam Comments Initial Comments: GENERAL: Patient is well-developed and well-nourished. Patient is nontoxic and in no acute distress. HEAD: Atraumatic, normocephalic. EYES: Pupils equal round and reactive to light, extraocular movements intact, sclera anicteric, conjunctiva are normal. Eyelids were unremarkable. ENT: TMs normal, nares patent, oropharynx clear without exudates. Moist mucous membranes. NECK: Normal range of motion, supple without lymphadenopathy or JVD. LUNGS: Unlabored respirations. Breath sounds clear to auscultation bilaterally and equal. No wheezes rales or rhonchi. HEART: Regular rate and rhythm without murmurs, rubs or gallops. ABDOMEN: Soft, nontender, normoactive bowel sounds. No guarding, no rebound. No masses appreciated. : Declined MUSCULOSKELETAL: Normal extremities with adequate strength and normal range of motion, no pitting or edema. No clubbing or cyanosis. NEUROLOGICAL: Patient is alert and oriented x 3. Motor and sensory are also intact. Cranial nerves II through XII grossly intact. Symmetrical smile. Normal speech, normal gait. PSYCH: Normal mood, normal affect. SKIN: Warm, Dry, normal turgor, no rashes or lesions noted. Limitations: no limitations Course Vital Signs 07/11/20 18:50 Temperature 97.9 F Pulse Rate 103 H Respiratory 18 Rate Blood Pressure 141/99 O2 Sat by Pulse 98 Oximetry Medical Decision Making - Medical Decision Making Patient is a 25-year-old female here for vaginal bleeding, lower abdominal cramping for the past 3 days after an IVF procedure to look at her fallopian tubes. Her vital signs are stable. Patient's lab reveal very slight leukocytosis at 14.6, likely reactive to recent procedure, rest of labs are unremarkable, urine shows no evidence of an infection. I did do an ultrasound and it shows no evidence of ovarian torsion, a tiny amount of fluid in the cul-de-sac. No other acute findings. I did recommend a pelvic exam lower patient declined. Patient did get some fluids. I discussed these findings with the patient. She is stable for discharge. She'll follow-up with her physician. She is in agreement with this plan of care. I will give her work note for rest. - Lab Data Result diagrams: 07/11/20 19:23 07/11/20 19:23 Lab Results 07/11/20 07/11/20 07/11/20 Range/Units 19:23 19:23 19:23 WBC 14.2 H (3.8-10.6) k/uL RBC 5.23 (3.80-5.40) m/uL Hgb 14.5 (11.4-16.0) gm/dL Hct 42.8 (34.0-46.0) % MCV 81.7 (80.0-100.0) fL MCH 27.6 (25.0-35.0) pg MCHC 33.8 (31.0-37.0) g/dL RDW 13.6 (11.5-15.5) % Plt Count 255 (150-450) k/uL Neutrophils % 67 % Lymphocytes % 25 % Monocytes % 3 % Eosinophils % 3 % Basophils % 1 % Neutrophils # 9.6 H (1.3-7.7) k/uL Lymphocytes # 3.6 (1.0-4.8) k/uL Monocytes # 0.4 (0-1.0) k/uL Eosinophils # 0.4 (0-0.7) k/uL Basophils # 0.1 (0-0.2) k/uL Sodium (137-145) mmol/L Potassium (3.5-5.1) mmol/L Chloride (98-107) mmol/L Carbon Dioxide (22-30) mmol/L Anion Gap mmol/L BUN (7-17) mg/dL Creatinine (0.52-1.04) mg/dL Est GFR (CKD-EPI)AfAm (>60 ml/min/1.73 sqM) Est GFR (CKD-EPI)NonAf (>60 ml/min/1.73 sqM) Glucose (74-99) mg/dL Calcium (8.4-10.2) mg/dL Total Bilirubin (0.2-1.3) mg/dL AST (14-36) U/L ALT (4-34) U/L Alkaline Phosphatase (38-126) U/L Total Protein (6.3-8.2) g/dL Albumin (3.5-5.0) g/dL Urine Color Yellow Urine Appearance Clear (Clear) Urine pH 5.5 (5.0-8.0) Ur Specific [place] 1.016 (1.001-1.035) Urine Protein Negative (Negative) Urine Glucose (UA) Negative (Negative) Urine Ketones Negative (Negative) Urine Blood Large H (Negative) Urine Nitrite Negative (Negative) Urine Bilirubin Negative (Negative) Urine Urobilinogen <2.0 (<2.0) mg/dL Ur Leukocyte Esterase Negative (Negative) Urine RBC 7 H (0-5) /hpf Urine WBC 1 (0-5) /hpf Ur Squamous Epith Cells 1 (0-4) /hpf Urine Bacteria Rare H (None) /hpf Urine Mucus Rare H (None) /hpf Urine HCG, Qual Not Detected (Not Detectd) 07/11/20 Range/Units 19:23 WBC (3.8-10.6) k/uL RBC (3.80-5.40) m/uL Hgb (11.4-16.0) gm/dL Hct (34.0-46.0) % MCV (80.0-100.0) fL MCH (25.0-35.0) pg MCHC (31.0-37.0) g/dL RDW (11.5-15.5) % Plt Count (150-450) k/uL Neutrophils % % Lymphocytes % % Monocytes % % Eosinophils % % Basophils % % Neutrophils # (1.3-7.7) k/uL Lymphocytes # (1.0-4.8) k/uL Monocytes # (0-1.0) k/uL Eosinophils # (0-0.7) k/uL Basophils # (0-0.2) k/uL Sodium 139 (137-145) mmol/L Potassium 4.4 (3.5-5.1) mmol/L Chloride 106 (98-107) mmol/L Carbon Dioxide 24 (22-30) mmol/L Anion Gap 9 mmol/L BUN 11 (7-17) mg/dL Creatinine 0.62 (0.52-1.04) mg/dL Est GFR (CKD-EPI)AfAm >90 (>60 ml/min/1.73 sqM) Est GFR (CKD-EPI)NonAf >90 (>60 ml/min/1.73 sqM) Glucose 88 (74-99) mg/dL Calcium 9.5 (8.4-10.2) mg/dL Total Bilirubin 0.5 (0.2-1.3) mg/dL AST 34 (14-36) U/L ALT 48 H (4-34) U/L Alkaline Phosphatase 65 (38-126) U/L Total Protein 7.1 (6.3-8.2) g/dL Albumin 4.4 (3.5-5.0) g/dL Urine Color Urine Appearance (Clear) Urine pH (5.0-8.0) Ur Specific [place] (1.001-1.035) Urine Protein (Negative) Urine Glucose (UA) (Negative) Urine Ketones (Negative) Urine Blood (Negative) Urine Nitrite (Negative) Urine Bilirubin (Negative) Urine Urobilinogen (<2.0) mg/dL Ur Leukocyte Esterase (Negative) Urine RBC (0-5) /hpf Urine WBC (0-5) /hpf Ur Squamous Epith Cells (0-4) /hpf Urine Bacteria (None) /hpf Urine Mucus (None) /hpf Urine HCG, Qual (Not Detectd) Disposition Clinical Impression: Dysfunctional uterine bleeding Disposition: HOME SELF-CARE Condition: Stable Instructions (If sedation given, give patient instructions): Dysmenorrhea (ED) Additional Instructions: Please return to the Emergency Department if symptoms worsen or any other concerns. Follow-up with IVF physician. Is patient prescribed a controlled substance at d/c from ED?: No Referrals: Lian Ramon MD [Primary Care Provider] - 1-2 days
[2020-07-11 19:31] LABS: Basophils # (A) 0.1 k/uL (0-0.2); Basophils % (A) 1 %; Eosinophils # (A) 0.4 k/uL (0-0.7); Eosinophils % (A) 3 %; HCT 42.8 % (34.0-46.0); HGB 14.5 gm/dL (11.4-16.0); Lymphocytes # (A) 3.6 k/uL (1.0-4.8); Lymphocytes % (A) 25 %; MCH 27.6 pg (25.0-35.0); MCHC 33.8 g/dL (31.0-37.0); MCV 81.7 fL (80.0-100.0); Monocytes # (A) 0.4 k/uL (0-1.0); Monocytes % (A) 3 %; Neutrophils # (A) 9.6 k/uL (1.3-7.7); Neutrophils % (A) 67 %; Platelet Count 255 k/uL (150-450); RBC 5.23 m/uL (3.80-5.40); RDW 13.6 % (11.5-15.5); WBC 14.2 k/uL (3.8-10.6)
[2020-07-11 19:40] LABS: ALT 48 U/L (4-34); AST 34 U/L (14-36); African American GFR (CKD) >90 (>60 ml/min/1.73 sqM); Albumin 4.4 g/dL (3.5-5.0); Alkaline Phosphatase 65 U/L (38-126); Anion Gap 9 mmol/L; Blood Urea Nitrogen 11 mg/dL (7-17); Calcium 9.5 mg/dL (8.4-10.2); Carbon Dioxide 24 mmol/L (22-30); Chloride 106 mmol/L (98-107); Glucose 88 mg/dL (74-99); Non-African American GFR(CKD) >90 (>60 ml/min/1.73 sqM); Potassium 4.4 mmol/L (3.5-5.1); Sodium 139 mmol/L (137-145); Total Bilirubin 0.5 mg/dL (0.2-1.3); Total Protein 7.1 g/dL (6.3-8.2)
[2020-07-11 19:48] LABS: Appearance,Urine Clear (Clear); Bacteria,Urine Rare /hpf; Bilirubin,Urine Negative (Negative); Blood,Urine Large (Negative); Color,Urine Yellow; Glucose,Urine (UA) Negative (Negative); Ketones,Urine Negative (Negative); Leukocyte Esterase,Urine Negative (Negative); Mucus,Urine Rare /hpf; Nitrite,Urine Negative (Negative); PH, Urine 5.5 (5.0-8.0); Protein,Urine Negative (Negative); RBC,Urine 7 /hpf (0-5); Specific Gravity,Urine 1.016 (1.001-1.035); Squamous Epithelial Cell,Urine 1 /hpf (0-4); Urobilinogen,Urine <2.0 mg/dL (<2.0); WBC,Urine 1 /hpf (0-5)
--- NOTE | 2020-07-11 20:42 | US ---
EXAMINATION TYPE: US pelvis limited transvag DATE OF EXAM: 07/11/2020 COMPARISON: CT, US CLINICAL HISTORY: bleeding, pain. Bleeding, pain x 3 days. Hx 4 miscarriages, D and C. PCOS. . TECHNIQUE: Transvaginal (TV) and Transabdominal (TA) . Transabdominal sonographic images of the pel vis were acquired. Transvaginal sonographic images were medically necessary to better assess the fol lowing anatomy: Uterus and left ovary. Patient claims on previous exams, right ovary was only visuali zed TA. Limited TA images taken before TV exam. Date of LMP: 06/22/2020 EXAM MEASUREMENTS: Uterus: 6.5 x 3.5 x 2.8 cm Endometrial Stripe: 0.24 cm Right Ovary: 4.7 x 2.9 x 3.2 cm Left Ovary: 3.4 x 2.6 x 2.3 cm 1. Uterus: Anteverted Appears slightly heterogeneous. Fluid-appearing area seen within cervix noé urin.0 x 0.4 x 0.2 cm. 2. Endometrium: Measures 0.24 cm. 3. Right Ovary: Measures enlarged. Seen TA only. 4. Left Ovary: Appears to be wnl. Subcentimeter anechoic areas seen. Spectral, color and waveform doppler imaging shows arterial and venous flow within the ovaries. Garry ous waveform of right ovary is slightly limited, right ovary only visualized transabdominally so this could be due to depth of ovary. 5. Bilateral Adnexa: Appear to be wnl. 6. Posterior cul-de-sac: Anechoic fluid-appearing area seen measurin.6 x 1.2 x 1.5 cm IMPRESSION: Tiny amount of fluid in the cul-de-sac. No adnexal mass. No endometrial thickening. No evidence of ov angelica torsion.
== END 2020-07-11 21:00 | disposition home or self-care (01) ==
LOC: EC 18:32
DX: N93.8 Other specified abnormal uterine and vaginal bleeding (principal); F41.9 Anxiety disorder, unspecified; F32.9 Major depressive disorder, single episode, unspecified; F17.200 Nicotine dependence, unspecified, uncomplicated; Z79.899 Other long term (current) drug therapy; Z79.3 Long term (current) use of hormonal contraceptives; Z88.1 Allergy status to other antibiotic agents; Z88.5 Allergy status to narcotic agent; Z88.8 Allergy status to other drugs, medicaments and biological substances; Z91.048 Other nonmedicinal substance allergy status; Z86.14 Personal history of Methicillin resistant Staphylococcus aureus infection
CPT/HCPCS: 36415; 76830; 76856; 76857; 80053; 81001; 81025; 85025; 93975; 96360; 99284

== ENCOUNTER → 2020-10-01 | Outpatient (CLI) | payer OTHER ==
--- NOTE | 2020-10-01 19:58 | CONS ---
CONSULTATION REASON FOR CONSULTATION: Sleep apnea. This is a 25-year-old morbidly obese female patient coming in with typical features of obstructive sleep apnea, including loud snoring, sleep fragmentation, witnessed apneas and excessive hypersomnia and sleepiness. The patient is morbidly obese and she carries a BMI of 56.5. The patient goes to bed around 3 a.m. and she gets out of bed around noontime next day. 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 and 2 a.m. in the morning. The patient does not wake up refreshed. She is tired and sleepy throughout the day. She is currently seeking bariatric surgery and she has already seen Dr. Jai Tsai in regard to the possibility of bariatric surgery, and she is currently in the process of being further evaluated. She has been obese and she has gained a significant amount of weight over the years. Her weight gain has been on the order of 210 pounds. Her [place] score is 15. No sleep paralysis. No hallucinations. No cataplexy. No history of falling asleep while driving her car. No history of any motor vehicle accident because of feeling drowsy or sleepy. No restlessness in the lower extremities. She does have choking and gasping for air in the middle of the night and she quits breathing. Her has been diagnosed having obstructive sleep apnea through our sleep center back in 2018. PAST MEDICAL HISTORY: Morbid obesity, polycystic ovary syndrome, nonalcoholic steatohepatitis, pseudotumor cerebri, status post SOCIAL WORKER MASTERS shunt, and hypothyroidism. PAST SURGICAL HISTORY: Past surgical history includes SOCIAL WORKER MASTERS shunt, LP shunt, hernia repair. DRUG ALLERGIES: PENICILLINS, MORPHINE, BIAXIN, HEPARIN, ADHESIVE TAPE. MEDICATION: Medication includes levothyroxine 25 mcg p.o. daily, Provera progesterone hormone replacement therapy, iron tablet 325 mg 3 times a week and vitamin C. SOCIAL HISTORY: The patient is a smoker, half pack of cigarettes a day. No history of alcoholism. No history of IV drugs. She is currently living with her . No children. FAMILY HISTORY: Negative for sleep apnea. REVIEW OF SYSTEMS: Fourteen-point review of systems was done. Positive findings are all mentioned above in the history of present illness. No headaches. No altered mentation. No vision impairment. No grinding of the teeth. No nighttime dyspnea, heartburn, chest pain or palpitations. PHYSICAL EXAMINATION: VITAL SIGNS: BP is 120/79, pulse 104, respiration 22, temperature 97.4, saturation 95% on room air. Height is 5 feet 5 inches, weight is 345. [place] score is 15. Neck size is 21-1/2 inches. BMI is 56.5. GENERAL APPEARANCE: Calm, comfortable. No acute distress. HEAD: Atraumatic, normocephalic. NECK: Supple. No JVD. No goiter or neck masses. Mallampati class IV. LUNGS: Clear to auscultation. HEART: Heart sounds are regular rate and rhythm. Normal S1, S2. No S3, S4. No murmurs. ABDOMEN: Soft, nontender. No organomegaly. EXTREMITIES: No edema. No cyanosis or clubbing. IMPRESSION: 1. Hypersomnia. [place] score of 15 with high likelihood of an underlying obstructive sleep apnea. 2. Loud snoring along with witnessed apneas and sleep fragmentation. 3. Morbid obesity with a BMI of 56.5. 4. Nonalcoholic steatohepatitis (FLORES). 5. Polycystic ovary syndrome (PCOS). 6. Pseudotumor cerebri, status post SOCIAL WORKER MASTERS shunt. 7. Hypothyroidism. PLAN: 1. Encourage weight loss. 2. Continue bariatric surgery evaluation through [facility] through Dr. Jai Tsai. 3. Proceed with a screening polysomnogram, looking for any significant obstructive sleep apnea. Overall likelihood for CARMELITA is quite high in this patient. 4. Will treat sleep apnea most likely with CPAP therapy if the diagnosis is confirmed. 5. Driving precautions were given. 6. Implement good sleep hygiene measures. 7. Continue treating comorbidities. 8. Will continue to follow. MMODL / IJN: [id number] /
== END | disposition home or self-care (01) ==
LOC: SLEEP 14:55
PROVIDERS: ATTEND Internal Medicine Critical Care Medicine
DX: G47.10 Hypersomnia, unspecified (principal); R06.83 Snoring; E66.01 Morbid (severe) obesity due to excess calories; K75.81 Nonalcoholic steatohepatitis (NASH); G93.2 Benign intracranial hypertension; E28.2 Polycystic ovarian syndrome; E03.9 Hypothyroidism, unspecified; Z98.2 Presence of cerebrospinal fluid drainage device; Z68.43 Body mass index [BMI] 50.0-59.9, adult
CPT/HCPCS: 99211

== ENCOUNTER → 2020-11-07 | Outpatient (CLI) | payer OTHER ==
--- NOTE | 2020-11-07 18:39 | XR ---
EXAMINATION TYPE: XR ankle complete 3 views LT, XR foot complete 3 views LT DATE OF EXAM: 11/07/2020 COMPARISON: NONE HISTORY: 25 year-old female left ankle sprain, pain FINDINGS: ANKLE: Ankle mortise is congruent with preservation of the distal tibiofibular overlap. Talar dome is intact . No acute fracture, subluxation, or dislocation. There may be some mild medial sided soft tissue swe lling. FOOT: No acute fracture, subluxation, or dislocation. Joint spaces throughout are maintained. IMPRESSION (ankle and foot): No acute osseous abnormality seen.
== END | disposition home or self-care (01) ==
LOC: RADXRMAIN 13:25
PROVIDERS: ATTEND Family Medicine
DX: S93.402A Sprain of unspecified ligament of left ankle, initial encounter (principal)

== ENCOUNTER → 2020-11-28 | Outpatient (CLI) | payer OTHER ==
--- NOTE | 2020-11-28 12:19 | CT ---
EXAMINATION TYPE: CT sinus wo con DATE OF EXAM: 11/28/2020 COMPARISON: None HISTORY: difficulty sleeping for [address] DLP: 570.8 mGycm. Automated Exposure Control for Dose Reduction was Utilized. TECHNIQUE: CT scan of the sinuses is performed without contrast, axial images are obtained, coronal r eformatted images are also reviewed. FINDINGS: The paranasal sinuses including the frontal, ethmoid, sphenoid, and maxillary sinuses bila terally are well-aerated without abnormal opacification. Hypoplastic frontal sinus noted incidental n ote made of a shunt catheter The ostiomeatal complex is patent bilaterally on the coronal images. Visualized portion of mastoid air cells show no abnormal opacification. The globes are intact bilate rally. IMPRESSION: The sinuses are clear and the ostiomeatal complex is patent bilaterally.
== END | disposition home or self-care (01) ==
LOC: RADCTMAIN 11:52
PROVIDERS: ATTEND Otolaryngology
DX: J32.9 Chronic sinusitis, unspecified (principal)
CPT/HCPCS: 70486

== ENCOUNTER 2021-01-01 07:46 | Day surgery (SDC) | payer OTHER ==
[2020-12-30 08:33] VITALS: BMI 56.5
[~2021-01-01 07:46] MED LIST changes: +CLINDAMYCIN 600 MG in DEXTROSE 5% IN WATER 50 ML IVPB PRN; -DEXAMETHASONE SOD PHOSPHATE 10 MG/ML 1 ML VIAL IV ONE; +DEXAMETHASONE SOD PHOSPHATE 4 MG/ML 1 ML VIAL IV ONE; +DEXAMETHASONE SOD PHOSPHATE 4 MG/ML 1 ML VIAL IV PRN; +FAMOTIDINE 20 MG/2 ML VIAL IV PRN; -HEPARIN SODIUM,PORCINE 5,000 UNIT/ML 1 ML VIAL SQ ONE; +HYDROmorphone 0.5 MG/0.5 ML SYRINGE IVP PRN
[2021-01-01 08:17] VITALS: RESP 16; TEMP 98.6
[2021-01-01] MEDS: OXYMETAZOLINE 0.05% NASL SPRAY 1 SPRAY BOTTLE EA NOSTRIL PRN ×5 (08:24→08:54)
[2021-01-01] MEDS ORDERED: LIDOCAINE 1% (10MG/ML) FOR IV START INTRADERMA ONE (08:40)
[2021-01-01 08:50] LABS: Glucose,Whole Blood 112 mg/dL (75-99)
[2021-01-01] MEDS ORDERED: MIDAZOLAM 2 MG/2 ML VIAL ONE (09:08)
[2021-01-01] MEDS ORDERED: fentaNYL (PF) 50 MCG/ML 2 ML AMP ONE (09:08)
[2021-01-01] MEDS ORDERED: DEXAMETHASONE SOD PHOSPHATE 10 MG/ML 1 ML VIAL ONE (09:08)
[2021-01-01] MEDS ORDERED: LIDOCAINE 1% INJ 10MG/ML (20 ML MDV) ONE (09:08)
[2021-01-01] MEDS ORDERED: ONDANSETRON 4 MG/2 ML VIAL ONE (09:08)
[2021-01-01] MEDS ORDERED: PROPOFOL 10 MG/ML 20 ML VIAL IV ONE (09:08)
[2021-01-01] MEDS ORDERED: SUCCINYLCHOLINE CHLORIDE 100 MG/5 ML SYR IV ONE (09:08)
[2021-01-01] MEDS ORDERED: LIDOCAINE 1%-EPI 1:100,000 20 ML VIAL SQ ONE (09:21)
[2021-01-01] MEDS ORDERED: BACITRACIN ZINC 500 UNIT/GM OINT 28.4 GM TUBE TOPICAL ONE (09:34)
--- NOTE | 2021-01-01 10:09 | P.OP ---
Date of Procedure: 01/01/21 Preoperative Diagnosis: Deviated nasal septum Inferior turbinate hypertrophy Chronic sinusitis Postoperative Diagnosis: Same Procedure(s) Performed: Septoplasty Outfracture and submucous resection of the inferior turbinates Bilateral endoscopic sinus surgery including bilateral maxillary antrostomy Anesthesia: DANIELITO Surgeon: Kodak Bourgeois Estimated Blood Loss (ml): 5 Pathology: other (Nasal septal bone and cartilage and sinus contents) Condition: stable Disposition: PACU Indications for Procedure: Is a 25-year-old white female who has difficulties with chronic nasal airway obstruction congestion and recurrent sinusitis Operative Findings: Nasal septum deviated to the right inferior turbinate hypertrophy bilaterally. The maxillary ostia were obstructed bilaterally mucosal was mildly inflamed in the maxillary sinuses bilaterally Description of Procedure: The patient was brought into the operative suite and placed in a supine position. The patient underwent induction of general anesthesia with oral endotracheal intubation without difficulty. The patient was prepped and draped in the usual aseptic fashion with the orbits in the operating field for monitoring to the case and the computed tomography scan was on the computer screen for review throughout the case. 1% lidocaine with 1 :100,000 epinephrine was infused submucosally into both sides of the nasal septum as well as the lateral nasal wall and anterior tips of the middle turbinates. While this was taking vasoconstrictive effect the inferior turbinates were infractured with [place] elevator and partial submucous resection of the inferior turbinates was performed with a portion of the submucosal soft tissue and the inferior turbinate bone removed with Coblation device. The inferior turbinates were then outfractured with the [place] elevator. A left hemitransfixion incision was then made with the mucoperichondrial and mucoperiosteal flap on the left elevated. The bony cartilaginous junction was disarticulated and the mucoperiosteal flap on the right was elevated. Bony nasal septal deformities were removed with Zoie forceps and an inferior cartilaginous strip was removed leaving a full 1.5 cm caudal strut. Checking intranasally this corrected the nasoseptal deformities and the hemitransfixion incision was closed with a running 4-0 chromic suture. Full 0 endoscopic examination is performed bilaterally. Beginning on the left, the middle turbinate was medialized. The maxillary ostium was located with a ballpoint probe and an infundibulotomy was performed followed by uncinectomy. The maxillary antrostomy was enlarged at the expense of the anterior and posterior fontanelle taking care anteriorly not to injure the lacrimal bone. The maxillary sinus was evaluated with 30 and 70 endoscope . The maxillary sinuses were explored with mild mucosal thickening bilaterally [Nasopore nasal dressing was placed in the middle meatus bilaterally under direct visualization]. Bilateral Gaston airway splints coated with bacitracin oi ntment were placed and sutured transseptally with a 4-0 nylon suture. The patient was suctioned in oral gastric fashion and was allowed to emerge from general anesthesia having tolerated procedure well and was extubated in the operating suite and transferred to the postoperative recovery area in satisfactory condition.
[2021-01-01] MEDS ORDERED: HYDROmorphone 1 MG/ML 1 ML SYRINGE IVP ONE ×2 (10:48→11:05)
[2021-01-01] MEDS ORDERED: HYDROcodone/APAP 5-325MG 1 EACH TAB ONE (11:42)
[2021-01-01] MEDS ORDERED: HYDROcodone/APAP 5-325MG 1 EACH TAB PO ONE (11:43)
[2021-01-01] MEDS ORDERED: LACTATED RINGERS 1,000 ML IV ONE (11:54)
[2021-01-01 12:39] VITALS: PULSE 81
[2021-01-01 13:01] VITALS: BP 145/75
== END 2021-01-01 13:19 | disposition home or self-care (01) ==
LOC: OR 07:46
PROVIDERS: ATTEND Otolaryngology
DX: J34.2 Deviated nasal septum (principal); J34.3 Hypertrophy of nasal turbinates; J32.0 Chronic maxillary sinusitis; J45.909 Unspecified asthma, uncomplicated; K21.9 Gastro-esophageal reflux disease without esophagitis; F32.9 Major depressive disorder, single episode, unspecified; H40.9 Unspecified glaucoma; K76.9 Liver disease, unspecified; E28.2 Polycystic ovarian syndrome; G40.909 Epilepsy, unspecified, not intractable, without status epilepticus; E07.9 Disorder of thyroid, unspecified; F17.200 Nicotine dependence, unspecified, uncomplicated; G47.33 Obstructive sleep apnea (adult) (pediatric); G93.2 Benign intracranial hypertension; Z88.0 Allergy status to penicillin; Z88.5 Allergy status to narcotic agent; Z88.1 Allergy status to other antibiotic agents; Z86.2 Personal history of diseases of the blood and blood-forming organs and certain disorders involving the immune mechanism; Z86.69 Personal history of other diseases of the nervous system and sense organs; Z98.890 Other specified postprocedural states; Z79.899 Other long term (current) drug therapy; Z79.891 Long term (current) use of opiate analgesic; Z79.52 Long term (current) use of systemic steroids; Z79.1 Long term (current) use of non-steroidal anti-inflammatories (NSAID); Z79.890 Hormone replacement therapy; Z79.811 Long term (current) use of aromatase inhibitors; Z79.84 Long term (current) use of oral hypoglycemic drugs; Z91.09 Other allergy status, other than to drugs and biological substances; Z98.2 Presence of cerebrospinal fluid drainage device; Z82.5 Family history of asthma and other chronic lower respiratory diseases; Z81.8 Family history of other mental and behavioral disorders; Z82.49 Family history of ischemic heart disease and other diseases of the circulatory system; Z82.61 Family history of arthritis; Z83.79 Family history of other diseases of the digestive system; Z83.49 Family history of other endocrine, nutritional and metabolic diseases; Z81.1 Family history of alcohol abuse and dependence; Z83.3 Family history of diabetes mellitus; Z83.42 Family history of familial hypercholesterolemia
CPT/HCPCS: 81025; 88305; 88300; 30520; 30140; 31256; J2250; J1100; J2405; J2001; J3010; J1170; J0330; J2704

== ENCOUNTER 2021-03-04 17:55 | Emergency (ER) | payer OTHER ==
[2021-03-04 18:08] VITALS: RESP 18; TEMP 97.9
[2021-03-04] MEDS ORDERED: ASPIRIN-ACET-CAFF 250-250-65MG 1 EACH TAB PO STA (19:08)
--- NOTE | 2021-03-04 19:27 | ED ---
Headache HPI - General Chief Complaint: Headache Stated Complaint: Headache Time Seen by Provider: 03/04/21 18:31 Mode of arrival: ambulatory Limitations: no limitations - History of Present Illness Initial Comments: Heather is a 26yo F who comes to the ER today for evaluation of a headache. Patient reports that she works at [employer] and today she was reaching up to get some meat out of storage when she accidentally knocked another approximately 6 pound block of meat off the shelf hitting her in the head. Patient did not lose consciousness, states she had some immediate pain. She only became concerned because she does have a PHP LAMP DEVELOPER shunt and wanted to make sure there is no injury. Patient states she has a mild headache by 5/10 in intensity, states that if she had a headache like this on a normal day she would just take an Excedrin. She denies any vision change, nausea or vomiting. Denies any neck pain. - Related Data Home Medications Medication Instructions Recorded Confirmed Levothyroxine Sodium 25 mcg PO DAILY 09/19/18 03/04/21 lamoTRIgine [LaMICtal] 100 mg PO BID 07/30/19 03/04/21 buPROPion [Wellbutrin] 100 mg PO BID 12/30/20 03/04/21 Ascorbic Acid [Vitamin C] 500 mg PO DAILY 03/04/21 03/04/21 Cholecalciferol [Vitamin D3 (25 25 mcg PO DAILY 03/04/21 03/04/21 Mcg = 1000 Iu)] Allergies Allergy/AdvReac Type Severity Reaction Status Date / Time morphine Allergy Intermediate Rash/Hives Verified 03/04/21 18:49 Penicillins Allergy Intermediate Rash/Hives Verified 03/04/21 18:49 clarithromycin [From Biaxin] Allergy Rash/Hives Verified 03/04/21 18:49 heparin Allergy RASH/HIVES-SEE Verified 03/04/21 18:49 COMMENTS sterie strips Allergy Blisters Uncoded 03/04/21 18:08 Review of Systems ROS Statement: Those systems with pertinent positive or pertinent negative responses have been documented in the HPI. ROS Other: All systems not noted in ROS Statement are negative. Past Medical History Past Medical History: Asthma, Chest Pain / Angina, GERD/Reflux, Musculoskeletal Disorder, Syncope Additional Past Medical History / Comment(s): CHILDHOOD ASTHMA; Seasonal Allergies; HX PANCREATITIS; HX LT ANKLE FX, "POPS" OUT OF PLACE OCC; C/O FREQ PALPITATIONS, GETS CP, POTS, POCS; OPTIC NERVE PRESSURE/UNKNOWN CAUSE, hx 2 seizures last seizure 07/27,iron deficiency. LP SHUNT History of Any Multi-Drug Resistant Organisms: MRSA Date of last positivie culture/infection: 2014 MDRO Source:: left foot Past Surgical History: No Surgical Hx Reported Additional Past Surgical History / Comment(s): WISDOM TEETH EXTRACTED; PAIN PROCEURES, lumbar shunt D&C, PHP LAMP DEVELOPER shunt . Past Anesthesia/Blood Transfusion Reactions: Motion Sickness Past Psychological History: Anxiety, Depression, Panic Disorder, PTSD Smoking Status: Current every day smoker Past Alcohol Use History: None Reported, Rare Past Drug Use History: None Reported - Past Family History Mother Family Medical History: No Reported History General Exam - General Exam Comments Initial Comments: Physical Exam GENERAL: Patient is well-developed and well-nourished. Patient is nontoxic and well-hydrated and is in no distress. BMI 55 HENT: Atraumatic PHP LAMP DEVELOPER shunt palpable in right scalp EYES: PERRL, EOMI No papiledema on non-dilated exam PULMONARY: Unlabored respirations. CARDIOVASCULAR: RRR Warm and well perfused extremities ABDOMEN: Non-distended SKIN: No rashes or bruising : Deferred NEUROLOGIC: Alert and oriented Normal speech Normal gait MUSCULOSKELETAL: Moving all extremities with no apparent injury PSYCHIATRIC: No SI/HI Limitations: no limitations Course Vital Signs 03/04/21 03/04/21 18:03 20:59 Temperature 97.9 F Pulse Rate 82 76 Respiratory 18 18 Rate Blood Pressure 129/86 130/72 O2 Sat by Pulse 98 98 Oximetry Medical Decision Making - Medical Decision Making The patient was seen and evaluated, history is obtained from the patient Physical exam is relatively unremarkable or no obvious signs of trauma to the head, no discomfort with palpation of the PHP LAMP DEVELOPER shunt CT of the brain and x-ray shunt series were obtained and resulted with no acute findings Upon reevaluation the patient reports resolution of her headache after taking Excedrin, she is relieved to the there are normal findings on her imaging, she was given a disc of her images and discharged home in stable condition she will contact her neurosurgeon for follow-up. Disposition Clinical Impression: Headache Disposition: HOME SELF-CARE Condition: Stable Instructions (If sedation given, give patient instructions): Acute Headache (ED) Additional Instructions: Follow up with neurosurgery Return to ER for any recurrent or worsening headache Is patient prescribed a controlled substance at d/c from ED?: No Referrals: Lian Ramon MD [Primary Care Provider] - 1-2 days
--- NOTE | 2021-03-04 19:49 | CT ---
EXAMINATION TYPE: CT brain wo con DATE OF EXAM: 03/04/2021 COMPARISON: February 26, 2019 HISTORY: headache post head injury CT DLP: 1131.4 mGycm Automated exposure control for dose reduction was used. Images obtained of the brain without contrast. There is right side ventricular shunt catheter with the tip in the frontal horn left lateral ventricl e. There is no hydrocephalus. There is no mass effect nor midline shift. There is no sign of intracra nial hemorrhage. The calvarium is intact. There is no evidence of cerebral edema. The calvarium is in tact. There is no evidence of a fracture. IMPRESSION: Shunt catheter in good position. No hydrocephalus. No adverse change compared to old exam.
--- NOTE | 2021-03-04 19:56 | XR ---
EXAMINATION TYPE: XR chest 1V DATE OF EXAM: 03/04/2021 COMPARISON: 05/08/2020 HISTORY: Shunt series TECHNIQUE: Single view FINDINGS: Heart and mediastinum are normal. Lungs are clear. Diaphragm is normal. Bony thorax is inta ct. There is ventriculoperitoneal shunt catheter over the base of the neck on the right side. Cathete r over the lower chest is not well visualized. Pulmonary vascularity is normal. IMPRESSION: No cardiopulmonary disease. Catheter not well visualized. Heart and lungs not changed com pared to old exam.
--- NOTE | 2021-03-04 19:59 | XR ---
EXAMINATION TYPE: XR abdomen 1V DATE OF EXAM: 03/04/2021 COMPARISON: NONE HISTORY: Shunt series TECHNIQUE: 2 views FINDINGS: There is ventriculoperitoneal shunt catheter is seen over the right side of the heart and e xtending into the abdomen. Catheter extends into the lateral right mid abdomen over the right paracol ic gutter region. There is a second catheter looped in the mid abdomen that appears not connected to anything. IMPRESSION: Shunt catheter appears intact. There is a second old catheter over the mid abdomen.
--- NOTE | 2021-03-04 20:26 | XR ---
EXAMINATION TYPE: XR skull limited DATE OF EXAM: 03/04/2021 COMPARISON: NONE HISTORY: Shunt series TECHNIQUE: 2 views FINDINGS: There is right-sided ventriculoperitoneal shunt catheter. Catheter appears intact. Calvarium is intact with normal vascular and suture markings. Sella turcica is normal. IMPRESSION: Catheter appears intact.
[2021-03-04 21:00] VITALS: BP 130/72; PULSE 76
== END 2021-03-04 21:00 | disposition home or self-care (01) ==
LOC: EC 17:55
DX: R51.9 Headache, unspecified (principal); J45.909 Unspecified asthma, uncomplicated; K21.9 Gastro-esophageal reflux disease without esophagitis; F41.9 Anxiety disorder, unspecified; F32.9 Major depressive disorder, single episode, unspecified; F17.200 Nicotine dependence, unspecified, uncomplicated; Z88.0 Allergy status to penicillin; Z98.2 Presence of cerebrospinal fluid drainage device
CPT/HCPCS: 70250; 70450; 71045; 74018; 99284

== ENCOUNTER 2021-08-15 11:05 | Emergency (ER) | payer OTHER ==
[2021-08-15 11:34] VITALS: BP 115/79; PULSE 109; RESP 18; TEMP 98.2
[2021-08-15] MEDS ORDERED: TOPICAL SKIN ADHESIVE 1 EACH AMP TOPICAL ONE (12:06)
--- NOTE | 2021-08-15 12:51 | ED ---
Wound/Laceration HPI - General Chief Complaint: Wound/Laceration Stated Complaint: R Finger Lac Time Seen by Provider: 08/15/21 12:00 Source: patient, RN notes reviewed Mode of arrival: ambulatory Limitations: no limitations - History of Present Illness Initial Comments: Patient is a 26-year-old female presenting to the emergency Department with complaints of a laceration to her right middle finger. Patient states she was reaching into a drawer and there was a knife a stop and it caused a laceration to the distal end of her right middle finger. Bleeding is controlled. She is up-to-date with her tetanus. She is not on blood thinners. There are no further complaints. - Related Data Home Medications Medication Instructions Recorded Confirmed Levothyroxine Sodium 25 mcg PO DAILY 09/19/18 08/15/21 lamoTRIgine [LaMICtal] 100 mg PO BID 07/30/19 08/15/21 buPROPion [Wellbutrin] 100 mg PO BID 12/30/20 08/15/21 Folic Acid 1 mg PO DAILY 08/15/21 08/15/21 Pnv,Calcium 72/Iron/Folic Acid 1 tab PO DAILY 08/15/21 08/15/21 [ Plus Tablet] Allergies Allergy/AdvReac Type Severity Reaction Status Date / Time morphine Allergy Intermediate Rash/Hives Verified 08/15/21 12:47 Penicillins Allergy Intermediate Rash/Hives Verified 08/15/21 12:47 clarithromycin [From Biaxin] Allergy Rash/Hives Verified 08/15/21 12:47 heparin Allergy RASH/HIVES-SEE Verified 08/15/21 12:47 COMMENTS sterie strips Allergy Blisters Uncoded 03/04/21 18:08 Review of Systems ROS Statement: Those systems with pertinent positive or pertinent negative responses have been documented in the HPI. ROS Other: All systems not noted in ROS Statement are negative. Past Medical History Past Medical History: Asthma, Chest Pain / Angina, GERD/Reflux, Musculoskeletal Disorder, Syncope Additional Past Medical History / Comment(s): CHILDHOOD ASTHMA; Seasonal Allergies; HX PANCREATITIS; HX LT ANKLE FX, "POPS" OUT OF PLACE OCC; C/O FREQ PALPITATIONS, GETS CP, POTS, POCS; OPTIC NERVE PRESSURE/UNKNOWN CAUSE, hx 2 seizures last seizure 07/27,iron deficiency. 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 Past Anesthesia/Blood Transfusion Reactions: Motion Sickness Past Psychological History: Anxiety, Depression, Panic Disorder, PTSD Smoking Status: Current every day smoker Past Alcohol Use History: None Reported, Rare Past Drug Use History: None Reported - Past Family History Mother Family Medical History: No Reported History General Exam - General Exam Comments Initial Comments: GENERAL: Patient is well-developed and well-nourished. Patient is nontoxic and in no acute distress. HEAD: Atraumatic, normocephalic. LUNGS: Unlabored respirations. Breath sounds clear to auscultation bilaterally and equal. No wheezes rales or rhonchi. HEART: Regular rate and rhythm without murmurs, rubs or gallops. MUSCULOSKELETAL: Normal extremities with adequate strength and normal range of motion, no pitting or edema. No clubbing or cyanosis. NEUROLOGICAL: Patient is alert and oriented x 3. SKIN: Warm, Dry, normal turgor, no rashes. Patient has a small superficial 0.5 cm laceration to the distal end of her right finger, near the cuticle. No active bleeding. Limitations: no limitations Course Vital Signs 08/15/21 11:30 Temperature 98.2 F Pulse Rate 109 H Respiratory 18 Rate Blood Pressure 115/79 O2 Sat by Pulse 96 Oximetry Procedures - Procedures Initial comment: Patient has a superficial 0.5 cm laceration to the distal end of her right middle finger, near the cuticle, no nail involvement. Patient's wound was cleaned, closed with topical skin adhesive and a Band-Aid. She tolerated procedure well. Medical Decision Making - Medical Decision Making Patient is a 26-year-old female here with a 0.5 cm laceration to the right middle finger. Her tetanus is up-to-date, she is not on blood thinners, bleeding is controlled. Patient's wound was closed with topical skin adhesive. She is stable for discharge. We discussed wound care. Disposition Clinical Impression: Laceration of right middle finger Disposition: HOME SELF-CARE Condition: Stable Instructions (If sedation given, give patient instructions): Skin Adhesive Care (ED) Additional Instructions: Please return to the Emergency Department if symptoms worsen or any other concerns. Skin adhesive will gradually dissolve over the next 7-10 days. You may wash your hands as normal. Do not soak the finger. Is patient prescribed a controlled substance at d/c from ED?: No Referrals: Lian Ramon MD [Primary Care Provider] - 1-2 days Time of Disposition: 12:51
== END 2021-08-15 13:05 | disposition home or self-care (01) ==
LOC: EC 11:05
DX: S61.212A Laceration without foreign body of right middle finger without damage to nail, initial encounter (principal); J45.909 Unspecified asthma, uncomplicated; G40.909 Epilepsy, unspecified, not intractable, without status epilepticus; F41.0 Panic disorder [episodic paroxysmal anxiety]; F32.9 Major depressive disorder, single episode, unspecified; F43.10 Post-traumatic stress disorder, unspecified; F17.200 Nicotine dependence, unspecified, uncomplicated; Z72.89 Other problems related to lifestyle; W26.0XXA Contact with knife, initial encounter
CPT/HCPCS: 12001; 99282

== ENCOUNTER 2021-09-03 08:21 | Day surgery (SDC) | payer OTHER ==
[2021-09-02 08:38] VITALS: BMI 55.9
[~2021-09-03 08:21] MED LIST changes: -CLINDAMYCIN 600 MG in DEXTROSE 5% IN WATER 50 ML IVPB PRN; -DEXAMETHASONE SOD PHOSPHATE 4 MG/ML 1 ML VIAL IV ONE; -DEXAMETHASONE SOD PHOSPHATE 4 MG/ML 1 ML VIAL IV PRN; -FAMOTIDINE 20 MG/2 ML VIAL IV PRN; -HYDROmorphone 0.5 MG/0.5 ML SYRINGE IVP PRN; +LIDOCAINE 1% (10MG/ML) FOR IV START INTRADERMA PRN; -ONDANSETRON 4 MG/2 ML VIAL IVP ONE; -ONDANSETRON 4 MG/2 ML VIAL IVP PRN
[2021-09-03 08:44] VITALS: TEMP 97.9
[2021-09-03] MEDS ORDERED: MIDAZOLAM 2 MG/2 ML VIAL ONE (09:31)
[2021-09-03] MEDS ORDERED: PROPOFOL 10 MG/ML 20 ML VIAL IV ONE (09:31)
[2021-09-03] MEDS ORDERED: KETAMINE 10 MG/ML 20 ML VIAL ONE (09:31)
--- NOTE | 2021-09-03 09:52 | P.PCN ---
Date of Procedure: 09/03/21 Procedure(s) Performed: BRIEF HISTORY: Patient is a 26-year-old pleasant male scheduled for an elective colonoscopy as a part of evaluation of chronic diarrhea for the last 2 years duration. She has bowel movements anywhere from 7-8 a day which are loose to watery in consistency but no blood or mucus in the stool. PROCEDURE PERFORMED: Colonoscopy with random biopsies. PREOPERATIVE DIAGNOSIS: Chronic diarrhea of 2 years duration. IV sedation per Anesthesia. PROCEDURE: After informed consent was obtained, the patient, was brought into the endoscopy unit. IV sedation was administered by Anesthesia under continuous monitoring. Digital rectal examination was normal. Initially the Olympus CF-160 flexible video colonoscope was then inserted in the rectum, gradually advanced into the cecum without any difficulty. Careful examination was performed as the scope was gradually being withdrawn. Ileocecal valve and the appendiceal orifice were visualized and appeared normal. Prep was fair. The belly was intubated and 20 cm visualized and appeared normal. Mucosa of the cecum, ascending colon, transverse colon, descending colon, sigmoid colon, and rectum appeared normal. Biopsies were done from ascending and descending colon to rule out microscopic/collagenous colitis. Retroflexion was performed in the rectum and no lesions were seen. The patient tolerated the procedure well. IMPRESSION: Normal-appearing colon from rectum to cecum with no evidence of colitis or colorectal neoplasia. RECOMMENDATIONS: Findings of this examination were discussed with the patient as well as a family. She was advised to follow with the biopsy results. She'll be seen in office in 2-3 weeks..
[2021-09-03 09:58] VITALS: RESP 16
[2021-09-03 10:20] VITALS: BP 137/80; PULSE 78
== END 2021-09-03 10:35 | disposition home or self-care (01) ==
LOC: ORWHC2ENDO 08:21
PROVIDERS: ATTEND Internal Medicine Gastroenterology
DX: K52.9 Noninfective gastroenteritis and colitis, unspecified (principal); Z79.899 Other long term (current) drug therapy; G47.33 Obstructive sleep apnea (adult) (pediatric); K21.9 Gastro-esophageal reflux disease without esophagitis; F43.10 Post-traumatic stress disorder, unspecified; K76.9 Liver disease, unspecified; R56.9 Unspecified convulsions; R55 Syncope and collapse; F41.9 Anxiety disorder, unspecified; F17.200 Nicotine dependence, unspecified, uncomplicated; F32.A Depression, unspecified; E66.01 Morbid (severe) obesity due to excess calories; Z68.43 Body mass index [BMI] 50.0-59.9, adult; Z87.19 Personal history of other diseases of the digestive system; Z79.3 Long term (current) use of hormonal contraceptives; Z88.1 Allergy status to other antibiotic agents; Z88.5 Allergy status to narcotic agent; Z88.0 Allergy status to penicillin; Z88.8 Allergy status to other drugs, medicaments and biological substances; Z91.09 Other allergy status, other than to drugs and biological substances
CPT/HCPCS: 81025; 88305; 45380; J2250; J2704

== ENCOUNTER 2021-09-27 20:53 | Emergency (ER) | payer OTHER ==
[2021-09-27 20:59] VITALS: BP 143/93; PULSE 112; RESP 18; TEMP 98.5
--- NOTE | 2021-09-27 22:28 | ED ---
General Adult HPI - General Chief complaint: Upper Respiratory Infection Stated complaint: Cough,Congestion, wants COVID test Time Seen by Provider: 09/27/21 21:03 Source: patient Mode of arrival: ambulatory - History of Present Illness Initial comments: 26-year-old female presents to the emergency department for a COVID-19 test. Patient states she has had congestion and a slight cough for a day or so. Patient states that she was exposed to COVID-19 last week and then again today. Patient does admit to bodyaches denies fevers.Patient has no other complaints at this time including shortness of breath, chest pain, abdominal pain, nausea or vomiting, headache, or visual changes. - Related Data Home Medications Medication Instructions Recorded Confirmed Levothyroxine Sodium 25 mcg PO DAILY 09/19/18 09/03/21 lamoTRIgine [LaMICtal] 100 mg PO BID 07/30/19 09/03/21 buPROPion [Wellbutrin] 150 mg PO BID 12/30/20 09/03/21 Folic Acid 1 mg PO DAILY 08/15/21 09/03/21 Levomefolate Calcium 7.5 mg PO DAILY 09/02/21 09/03/21 [l-Methylfolate Calcium] medroxyPROGESTERone [Provera] 10 mg PO DIRECTED 09/02/21 09/03/21 Allergies Allergy/AdvReac Type Severity Reaction Status Date / Time morphine Allergy Intermediate Rash/Hives Verified 09/27/21 20:59 Penicillins Allergy Intermediate Rash/Hives Verified 09/27/21 20:59 clarithromycin [From Biaxin] Allergy Rash/Hives Verified 09/27/21 20:59 heparin Allergy Rash/Hives Verified 09/27/21 20:59 steri strips AdvReac blisters Uncoded 09/03/21 08:40 Review of Systems ROS Statement: Those systems with pertinent positive or pertinent negative responses have been documented in the HPI. ROS Other: All systems not noted in ROS Statement are negative. Past Medical History Past Medical History: Asthma, Chest Pain / Angina, GERD/Reflux, Musculoskeletal Disorder, Syncope Additional Past Medical History / Comment(s): CHILDHOOD ASTHMA; Seasonal Allergies; HX PANCREATITIS; HX LT ANKLE FX, "POPS" OUT OF PLACE OCC; C/O FREQ PALPITATIONS, GETS CP, POTS, POCS; OPTIC NERVE PRESSURE/UNKNOWN CAUSE, hx 2 seizures last seizure 07/27,iron deficiency. LP SHUNT History of Any Multi-Drug Resistant Organisms: MRSA Date of last positivie culture/infection: 2014 MDRO Source:: left foot Past Surgical History: No Surgical Hx Reported Additional Past Surgical History / Comment(s): WISDOM TEETH EXTRACTED; PAIN PROCEURES, lumbar shunt D&C, PULMONOLOGIST shunt . Past Anesthesia/Blood Transfusion Reactions: Motion Sickness Past Psychological History: Anxiety, Depression, Panic Disorder, PTSD Smoking Status: Current every day smoker Past Alcohol Use History: None Reported, Rare Additional Past Alcohol Use History / Comment(s): has smoked since age 16 less than 1/2 ppd, quit 02/07/18 Past Drug Use History: Marijuana - Past Family History Mother Family Medical History: No Reported History General Exam General appearance: alert, in no apparent distress Head exam: Present: atraumatic Eye exam: Present: normal appearance, PERRL, EOMI. Absent: scleral icterus, conjunctival injection ENT exam: Present: normal exam, mucous membranes moist Neck exam: Present: normal inspection, full ROM. Absent: tenderness Respiratory exam: Present: normal lung sounds bilaterally. Absent: respiratory distress, wheezes Cardiovascular Exam: Present: regular rate, normal rhythm, normal heart sounds GI/Abdominal exam: Present: soft, normal bowel sounds. Absent: distended, tenderness Neurological exam: Present: alert Course Vital Signs 09/27/21 20:54 Temperature 98.5 F Pulse Rate 112 H Respiratory 18 Rate Blood Pressure 143/93 O2 Sat by Pulse 98 Oximetry Medical Decision Making - Medical Decision Making Vitals are stable. Patient is well appearing. Lungs are clear. COVID-19 test is negative. Patient can be discharged home however we recommend a repeat overdose given her loss of taste and symptoms consistent with COVID-19. She was just exposed again yesterday. She will return here for any worsening symptoms. - Lab Data Lab Results 09/27/21 Range/Units 21:01 Coronavirus (PCR) Not Detected (Not Detectd) Disposition Clinical Impression: Lab test negative for COVID-19 virus, Sinusitis Disposition: HOME SELF-CARE Condition: Good Instructions (If sedation given, give patient instructions): Upper Respiratory Infection (ED) Additional Instructions: Please take Motrin and Tylenol for pain. Drink any fluids. Retest work overhead on September 30. Return to the emergency room for any worsening symptoms. Is patient prescribed a controlled substance at d/c from ED?: No Referrals: Ritu Fajardo MD [REFERRING] - 1-2 days Time of Disposition: 22:26
== END 2021-09-27 22:51 | disposition home or self-care (01) ==
LOC: EC 20:53
DX: J01.90 Acute sinusitis, unspecified (principal); J45.909 Unspecified asthma, uncomplicated; K21.9 Gastro-esophageal reflux disease without esophagitis; F41.9 Anxiety disorder, unspecified; F32.A Depression, unspecified; F43.12 Post-traumatic stress disorder, chronic; F17.200 Nicotine dependence, unspecified, uncomplicated; F12.90 Cannabis use, unspecified, uncomplicated; Z20.822 Contact with and (suspected) exposure to COVID-19; Z88.0 Allergy status to penicillin; Z88.5 Allergy status to narcotic agent; Z88.1 Allergy status to other antibiotic agents
CPT/HCPCS: 87635; 99283

== ENCOUNTER 2021-09-30 08:07 | Emergency (ER) | payer OTHER ==
[2021-09-30 08:16] VITALS: RESP 18; TEMP 98.8
--- NOTE | 2021-09-30 08:54 | XR ---
EXAMINATION TYPE: XR chest 2V DATE OF EXAM: 09/30/2021 COMPARISON: Chest x-ray March 04, 2021. HISTORY: Cough and congestion. TECHNIQUE: Frontal and lateral views of the chest are obtained. FINDINGS: Low lung volumes redemonstrated. There is no suspicious new focal air space opacity, pleur al effusion, or pneumothorax seen. The cardiac silhouette size is stable and within normal limits. The osseous structures are intact. IMPRESSION: No acute pulmonary process. No significant change from prior.
--- NOTE | 2021-09-30 09:02 | ED ---
General Adult HPI - General Chief complaint: Upper Respiratory Infection Stated complaint: Cough Time Seen by Provider: 09/30/21 08:20 Source: patient, RN notes reviewed Mode of arrival: ambulatory - History of Present Illness Initial comments: 26-year-old female presents to the emergency room for cough. Patient states she has had a cough for the past 4 days now. States she feels very congested. States she just tested negative for COVID-19 but several coworkers just tested positive. She has not had any fevers or chills. She denies shortness of breath or chest pain. Patient has no other complaints at this time including shortness of breath, chest pain, abdominal pain, nausea or vomiting, headache, or visual changes. - Related Data Home Medications Medication Instructions Recorded Confirmed RX: Levothyroxine Sodium 25 mcg PO DAILY 09/19/18 09/03/21 lamoTRIgine [LaMICtal] 100 mg PO BID 07/30/19 09/03/21 buPROPion [Wellbutrin] 150 mg PO BID 12/30/20 09/03/21 RX: Folic Acid 1 mg PO DAILY 08/15/21 09/03/21 Levomefolate Calcium 7.5 mg PO DAILY 09/02/21 09/03/21 [l-Methylfolate Calcium] medroxyPROGESTERone [Provera] 10 mg PO DIRECTED 09/02/21 09/03/21 Previous Rx's Medication Instructions Recorded Benzonatate [Tessalon Perles] 200 mg PO Q8H PRN #15 capsule 09/30/21 guaiFENesin [Mucinex] 600 mg PO Q12HR PRN #20 tab 09/30/21 Allergies Allergy/AdvReac Type Severity Reaction Status Date / Time morphine Allergy Intermediate Rash/Hives Verified 09/30/21 08:17 Penicillins Allergy Intermediate Rash/Hives Verified 09/30/21 08:17 clarithromycin [From Biaxin] Allergy Rash/Hives Verified 09/30/21 08:17 heparin Allergy Rash/Hives Verified 09/30/21 08:17 steri strips AdvReac blisters Uncoded 09/03/21 08:40 Review of Systems ROS Statement: Those systems with pertinent positive or pertinent negative responses have been documented in the HPI. ROS Other: All systems not noted in ROS Statement are negative. Past Medical History Past Medical History: Asthma, Chest Pain / Angina, GERD/Reflux, Musculoskeletal Disorder, Syncope Additional Past Medical History / Comment(s): CHILDHOOD ASTHMA; Seasonal Allergies; HX PANCREATITIS; HX LT ANKLE FX, "POPS" OUT OF PLACE OCC; C/O FREQ PALPITATIONS, GETS CP, POTS, POCS; OPTIC NERVE PRESSURE/UNKNOWN CAUSE, hx 2 seizures last seizure 07/27,iron deficiency. 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 Past Anesthesia/Blood Transfusion Reactions: Motion Sickness Past Psychological History: Anxiety, Depression, Panic Disorder, PTSD Smoking Status: Current every day smoker Past Alcohol Use History: Rare Past Drug Use History: Marijuana - Past Family History Mother Family Medical History: No Reported History General Exam General appearance: alert, in no apparent distress Head exam: Present: atraumatic Eye exam: Present: normal appearance, PERRL, EOMI. Absent: scleral icterus, conjunctival injection ENT exam: Present: normal exam, mucous membranes moist Neck exam: Present: normal inspection, full ROM. Absent: tenderness Respiratory exam: Present: normal lung sounds bilaterally. Absent: respiratory distress, wheezes Cardiovascular Exam: Present: regular rate, normal rhythm, normal heart sounds GI/Abdominal exam: Present: soft, normal bowel sounds. Absent: distended, tenderness Course Vital Signs 09/30/21 08:10 Temperature 98.8 F Pulse Rate 108 H Respiratory 18 Rate Blood Pressure 135/75 O2 Sat by Pulse 98 Oximetry Medical Decision Making - Lab Data Lab Results 09/30/21 Range/Units 08:20 Coronavirus (PCR) Not Detected (Not Detectd) Disposition Clinical Impression: Acute cough, Lab test negative for COVID-19 virus Disposition: HOME SELF-CARE Condition: Good Instructions (If sedation given, give patient instructions): Upper Respiratory Infection (ED) Additional Instructions: Please take medications as directed. follow up with primary care. return to the er for any worsening symptoms. Prescriptions: guaiFENesin [Mucinex] 600 mg PO Q12HR PRN #20 tab PRN Reason: Congestion Benzonatate [Tessalon Perles] 200 mg PO Q8H PRN #15 capsule PRN Reason: Cough Is patient prescribed a controlled substance at d/c from ED?: No Referrals: Lian Ramon MD [STAFF PHYSICIAN] - 1-2 days Time of Disposition: 09:21
[2021-09-30 09:28] VITALS: BP 136/78; PULSE 99
== END 2021-09-30 09:27 | disposition home or self-care (01) ==
LOC: EC 08:07
DX: R05.1 Acute cough (principal); Z20.822 Contact with and (suspected) exposure to COVID-19; J45.909 Unspecified asthma, uncomplicated; F43.10 Post-traumatic stress disorder, unspecified; F32.A Depression, unspecified; F41.0 Panic disorder [episodic paroxysmal anxiety]; F17.200 Nicotine dependence, unspecified, uncomplicated; F12.90 Cannabis use, unspecified, uncomplicated; Z72.89 Other problems related to lifestyle
CPT/HCPCS: 71046; 87635; 99283

== ENCOUNTER 2021-10-13 12:07 | Emergency (ER) | payer OTHER ==
[2021-10-13] MEDS ORDERED: SODIUM CHLORIDE 0.9% 50 ML IVPB ONE (17:15)
[2021-10-13] MEDS ORDERED: BAMLANIVIMAB (EUA) 700 MG, ETESEVIMAB (EUA) 1,400 MG in SODIUM CHLORIDE 0.9% 100 ML IVPB ONE (17:15)
[2021-10-13 17:48] VITALS: BP 150/80; PULSE 109; RESP 18; TEMP 98.4
--- NOTE | 2021-10-13 18:32 | ED ---
URI HPI - General Chief Complaint: Upper Respiratory Infection Stated Complaint: sore throat, cough, body aches Time Seen by Provider: 10/13/21 16:38 Source: patient, family Mode of arrival: ambulatory Limitations: no limitations - History of Present Illness Initial Comments: 26-year-old female patient presents to the emergency department today for evalu ation of sore throat and body aches that started yesterday. States she did have an episode of diarrhea. Forced lack of appetite. Denies any shortness of breath or chest pain. Does have history of hydrocephalus and has a TRANSFUSION NURSE shunt. She has had headache throughout the day today. Denies any blurred or double vision. Denies numbness, tingling, weakness to her extremities. She denies chance of . - Related Data Home Medications Medication Instructions Recorded Confirmed Levothyroxine Sodium 25 mcg PO DAILY 09/19/18 09/03/21 lamoTRIgine [LaMICtal] 100 mg PO BID 07/30/19 09/03/21 buPROPion [Wellbutrin] 150 mg PO BID 12/30/20 09/03/21 Folic Acid 1 mg PO DAILY 08/15/21 09/03/21 Levomefolate Calcium 7.5 mg PO DAILY 09/02/21 09/03/21 [l-Methylfolate Calcium] medroxyPROGESTERone [Provera] 10 mg PO DIRECTED 09/02/21 09/03/21 Previous Rx's Medication Instructions Recorded Benzonatate [Tessalon Perles] 200 mg PO Q8H PRN #15 capsule 09/30/21 guaiFENesin [Mucinex] 600 mg PO Q12HR PRN #20 tab 09/30/21 Allergies Allergy/AdvReac Type Severity Reaction Status Date / Time morphine Allergy Intermediate Rash/Hives Verified 10/13/21 15:15 Penicillins Allergy Intermediate Rash/Hives Verified 10/13/21 15:15 clarithromycin [From Biaxin] Allergy Rash/Hives Verified 10/13/21 15:15 heparin Allergy Rash/Hives Verified 10/13/21 15:15 steri strips AdvReac blisters Uncoded 10/13/21 15:15 Review of Systems ROS Statement: Those systems with pertinent positive or pertinent negative responses have been documented in the HPI. ROS Other: All systems not noted in ROS Statement are negative. Past Medical History Past Medical History: Asthma, Chest Pain / Angina, GERD/Reflux, Musculoskeletal Disorder, Syncope Additional Past Medical History / Comment(s): CHILDHOOD ASTHMA; Seasonal Allergies; HX PANCREATITIS; HX LT ANKLE FX, "POPS" OUT OF PLACE OCC; C/O FREQ PALPITATIONS, GETS CP, POTS, POCS; OPTIC NERVE PRESSURE/UNKNOWN CAUSE, hx 2 seizures last seizure 07/27,iron deficiency. LP SHUNT History of Any Multi-Drug Resistant Organisms: MRSA Date of last positivie culture/infection: 2014 MDRO Source:: left foot Past Surgical History: No Surgical Hx Reported Additional Past Surgical History / Comment(s): WISDOM TEETH EXTRACTED; PAIN PROCEURES, lumbar shunt D&C, TRANSFUSION NURSE shunt . Past Anesthesia/Blood Transfusion Reactions: Motion Sickness Past Psychological History: Anxiety, Depression, Panic Disorder, PTSD Smoking Status: Current every day smoker Past Alcohol Use History: Rare Past Drug Use History: Marijuana - Past Family History Mother Family Medical History: No Reported History General Exam Limitations: no limitations General appearance: alert, in no apparent distress, other (This is a well- developed, well-nourished adult female in no acute distress.) Eye exam: Present: normal appearance, PERRL, EOMI. Absent: scleral icterus, conjunctival injection, periorbital swelling ENT exam: Present: mucous membranes moist. Absent: normal oropharynx (Pharyngeal erythema. No tonsillar hypertrophy. Tonsils are symmetrical uvula is midline.) Respiratory exam: Present: normal lung sounds bilaterally. Absent: respiratory distress, wheezes, rales, rhonchi, stridor Cardiovascular Exam: Present: normal rhythm, tachycardia, normal heart sounds. Absent: systolic murmur, diastolic murmur, rubs, gallop, clicks GI/Abdominal exam: Present: soft, normal bowel sounds. Absent: distended, tenderness, guarding, rebound, rigid Neurological exam: Present: alert, oriented X3, CN II-XII intact Psychiatric exam: Present: normal affect, normal mood Skin exam: Present: warm, dry, intact, normal color. Absent: rash Course Vital Signs 10/13/21 10/13/21 15:09 17:47 Temperature 99.9 F H 98.4 F Pulse Rate 120 H 109 H Respiratory 22 18 Rate Blood Pressure 124/70 150/80 O2 Sat by Pulse 97 97 Oximetry Medical Decision Making - Medical Decision Making 26-year-old female patient presents for evaluation of sore throat and body aches that started yesterday. Physical examination is unremarkable. She did test positive for COVID-19. She did meet criteria Tevin monoclonal antibody infusion. She tolerated the infusion without difficulty. She'll be discharged follow up with the primary care physician for recheck in 1-2 days. Return pa rameters were discussed in detail. She verbalizes understanding and agrees with this plan. My attending is Dr. Barajas. - Lab Data Lab Results 10/13/21 Range/Units 15:10 Coronavirus (PCR) Detected A (Not Detectd) Disposition Clinical Impression: COVID-19 Disposition: HOME SELF-CARE Condition: Good Instructions (If sedation given, give patient instructions): Coronavirus Disease 2019 (COVID-19) Additional Instructions: Tips to help you feel better: -Maintain adequate fluid intake - especially water. -Rest, you are healing your body will require extra sleep. -Eat even if you do not feel like it - broth, jello, toast are fine if you cannot eat full meals. -Take tylenol and motrin alternating (if you have no allergies or have not been instructed to avoid these medications) to help with body aches and fevers. -Obtain over the counter vitamin C, zinc, and vitamin D3. -Take medications as prescribed. Follow-up with your primary care physician for recheck in 1-2 days. Return for any new, worsening, or concerning symptoms. Is patient prescribed a controlled substance at d/c from ED?: No Referrals: None,Stated [Primary Care Provider] - 1-2 days Time of Disposition: 18:32
== END 2021-10-13 18:30 | disposition home or self-care (01) ==
LOC: EC 12:07
DX: U07.1 COVID-19 (principal); J45.909 Unspecified asthma, uncomplicated; K21.9 Gastro-esophageal reflux disease without esophagitis; F32.A Depression, unspecified; F41.9 Anxiety disorder, unspecified; F17.200 Nicotine dependence, unspecified, uncomplicated; F12.90 Cannabis use, unspecified, uncomplicated; Z79.890 Hormone replacement therapy; Z79.899 Other long term (current) drug therapy
CPT/HCPCS: 87635; 99284; J3490

== ENCOUNTER 2022-04-08 20:14 | Emergency (ER) | payer OTHER ==
[2022-04-08] MEDS ORDERED: diphenhydrAMINE 50 MG/ML 1 ML VIAL IVP STA (22:03)
[2022-04-08] MEDS ORDERED: METOCLOPRAMIDE 5 MG/ML 2 ML VIAL IVP STA (22:03)
[2022-04-08] MEDS ORDERED: SODIUM CHLORIDE 0.9% 1,000 ML IV STA (22:03)
--- NOTE | 2022-04-08 22:14 | ED ---
Headache HPI - General Chief Complaint: Headache Stated Complaint: Syncope/Migraine Time Seen by Provider: 04/08/22 21:56 Source: RN notes reviewed Mode of arrival: ambulatory Limitations: no limitations - History of Present Illness Initial Comments: This is a pleasant 27-year-old female with a history of pseudotumor cerebri. Patient had a ventriculoperitoneal shunt placed in [address] Clayton out of [facility] [place]. She states she does suffer from migraine headaches. Patient states that her neurologist has been trying different medications with varying levels of success. Patient states that about 7:15 PM she started getti ng shaky and thought she had to eat. Patient states that this happens frequently. Patient then stated that she felt more shaky for a few minutes and then about the headache which came on fairly quickly. She states it came on quickly than her usual headache. Describing a throbbing sensation on the right side of her head. This does correspond to the area of the patient's shunt. No headache, no fever or chills, no changes in vision or hearing, no sore throat or difficulty with speech, no neck pain, no chest pain or shortness of breath, no abdominal pain, no nausea or vomiting, no changes in urination or bowel movements, no numbness or tingling, no extremity pain, no skin rashes or lesions. MD Complaint: headache - Related Data Home Medications Medication Instructions Recorded Confirmed Levothyroxine Sodium 25 mcg PO DAILY 09/19/18 09/03/21 lamoTRIgine [LaMICtal] 100 mg PO BID 07/30/19 09/03/21 buPROPion [Wellbutrin] 150 mg PO BID 12/30/20 09/03/21 Folic Acid 1 mg PO DAILY 08/15/21 09/03/21 Levomefolate Calcium 7.5 mg PO DAILY 09/02/21 09/03/21 [l-Methylfolate Calcium] medroxyPROGESTERone [Provera] 10 mg PO DIRECTED 09/02/21 09/03/21 Previous Rx's Medication Instructions Recorded Benzonatate [Tessalon Perles] 200 mg PO Q8H PRN #15 capsule 09/30/21 guaiFENesin [Mucinex] 600 mg PO Q12HR PRN #20 tab 09/30/21 Allergies Allergy/AdvReac Type Severity Reaction Status Date / Time morphine Allergy Intermediate Rash/Hives Verified 04/08/22 20:21 Penicillins Allergy Intermediate Rash/Hives Verified 04/08/22 20:21 clarithromycin [From Biaxin] Allergy Rash/Hives Verified 04/08/22 20:21 heparin Allergy Rash/Hives Verified 04/08/22 20:21 steri strips AdvReac blisters Uncoded 04/08/22 20:21 Review of Systems ROS Statement: Those systems with pertinent positive or pertinent negative responses have been documented in the HPI. ROS Other: All systems not noted in ROS Statement are negative. Past Medical History Past Medical History: Asthma, Chest Pain / Angina, GERD/Reflux, Musculoskeletal Disorder, Syncope Additional Past Medical History / Comment(s): CHILDHOOD ASTHMA; Seasonal Allergies; HX PANCREATITIS; HX LT ANKLE FX, "POPS" OUT OF PLACE OCC; C/O FREQ PALPITATIONS, GETS CP, POTS, POCS; OPTIC NERVE PRESSURE/UNKNOWN CAUSE, hx 2 seizures last seizure 07/27,iron deficiency. CONDUCTOR SYMPHONIC ORCHESTRA SHUNT History of Any Multi-Drug Resistant Organisms: MRSA Date of last positivie culture/infection: 2014 MDRO Source:: left foot Past Surgical History: No Surgical Hx Reported Additional Past Surgical History / Comment(s): WISDOM TEETH EXTRACTED; PAIN PROCEURES, lumbar shunt D&C, CONDUCTOR SYMPHONIC ORCHESTRA shunt . Past Anesthesia/Blood Transfusion Reactions: Motion Sickness Past Psychological History: Anxiety, Depression, Panic Disorder, PTSD Smoking Status: Current every day smoker Past Alcohol Use History: Rare Past Drug Use History: Marijuana - Past Family History Mother Family Medical History: No Reported History General Exam - General Exam Comments Initial Comments: Patient mild distress. Cranial nerves II through XII grossly intact. No evidence of focal neurologic deficit. Patient does not appear to be ill or toxic Limitations: no limitations General appearance: alert, in no apparent distress Head exam: Present: atraumatic, normocephalic, normal inspection Eye exam: Present: normal appearance, PERRL, EOMI. Absent: scleral icterus, conjunctival injection, periorbital swelling ENT exam: Present: normal exam, normal oropharynx, mucous membranes moist, TM's normal bilaterally, normal external ear exam. Absent: mucous membranes dry Neck exam: Present: normal inspection, full ROM. Absent: tenderness, meningismus, lymphadenopathy Respiratory exam: Present: normal lung sounds bilaterally. Absent: respiratory distress, wheezes, rales, rhonchi, stridor Cardiovascular Exam: Present: regular rate, normal rhythm, normal heart sounds. Absent: systolic murmur, diastolic murmur, rubs, gallop, clicks GI/Abdominal exam: Present: soft, normal bowel sounds. Absent: distended, tenderness, guarding, rebound, rigid Extremities exam: Present: normal inspection, full ROM, normal capillary refill. Absent: tenderness, pedal edema, joint swelling, calf tenderness Back exam: Present: normal inspection Neurological exam: Present: alert, oriented X3, CN II-XII intact Expanded Patient oriented to: Present: person, place, time Speech: Present: fluid speech Cranial nerves: EOM's Intact: Normal, Gag Reflex: Normal, Tongue Deviation: Normal, Facial Sensation: Normal, Facial Palsy with Forehead Movement: Normal, Facial Palsy without Forehead Movement: Normal Cerebellar function: Finger to Nose: Normal, Heel to Black: Normal, Romberg: Normal Motor strength exam: RUE: 5, LUE: 5, RLE: 5, LLE: 5 Eye Response: (4) open spontaneously Motor Response: (6) obeys commands Verbal Response: (5) oriented [place] Total: 15 Psychiatric exam: Present: normal affect, normal mood Skin exam: Present: warm, dry, intact, normal color. Absent: rash Course Vital Signs 04/08/22 04/08/22 20:16 23:34 Temperature 99 F 98.8 F Pulse Rate 95 91 Respiratory 22 26 H Rate Blood Pressure 123/80 133/94 O2 Sat by Pulse 97 100 Oximetry - Reevaluation(s) Reevaluation #1: 04/08/22 23:47 Reevaluated and is neurologically intact at discharge. Patient electing leave AGAINST MEDICAL ADVICE Medical Decision Making - Medical Decision Making Going to order a CAT scan of the head as this headache is different from the patient's usual migraine. Patient also has a ventriculoperitoneal shunt. Shunt series as well. AMA Documentation: I, personally, had a discussion with the patient concerning their presumed diagnoses and my recommendations regarding available options for treatment. The patient understand the risks and benefits of the treatment options presented and also understands the risks of not following these recommendations and leaving the hospital against medical advice. The patient clearly has capacity to make an informed decision regarding further treatment at this time and is electing to sign out against my medical advice. Follow up arrangements were discussed with the patient and the patient was advised to consider returning to the emergency department or seeking further care should they have a worsening of their medical condition, if they should develop new or concerning symptoms, or if they should change their mind about receiving further medical care. Patient was told to return to the ER for any signs or symptoms worsen. Told to return immediately if any other problems arise. All questions answered. Treatment plan discussed. Patient in agreement Every effort has been made to ensure accuracy of this dictation. However, due to the limitations of electronic medical records and dictation devices, errors in charting still occur. I did review the patient's CT scans and imaging after the patient had left AGAINST MEDICAL ADVICE. No acute changes with regard to the computed tomography scan of the brain. I did review this film myself. Shunt appeared to be functional and in place per radiology. This patient was told to follow up with both her regular physician and her neurosurgeon. Patient voiced understanding. Patient was called at home with results. - Lab Data Result diagrams: 04/08/22 23:21 Lab Results 04/08/22 Range/Units 23:21 WBC 12.7 H (3.8-10.6) k/uL RBC 5.25 (3.80-5.40) m/uL Hgb 14.3 (11.4-16.0) gm/dL Hct 43.3 (34.0-46.0) % MCV 82.3 (80.0-100.0) fL MCH 27.2 (25.0-35.0) pg MCHC 33.0 (31.0-37.0) g/dL RDW 13.9 (11.5-15.5) % Plt Count 284 (150-450) k/uL MPV 7.4 Neutrophils % 62 % Lymphocytes % 31 % Monocytes % 3 % Eosinophils % 2 % Basophils % 1 % Neutrophils # 7.9 H (1.3-7.7) k/uL Lymphocytes # 3.9 (1.0-4.8) k/uL Monocytes # 0.4 (0-1.0) k/uL Eosinophils # 0.3 (0-0.7) k/uL Basophils # 0.2 (0-0.2) k/uL - Radiology Data Radiology results: image reviewed Disposition Clinical Impression: Headache, Anxiety Disposition: Left Against Medical Advice Condition: Stable Instructions (If sedation given, give patient instructions): Acute Headache (ED) Additional Instructions: Follow-up with your regular physician as directed. Return to the ER immediately if any symptoms worsen, new symptoms arise, or any other problems develop. Is patient prescribed a controlled substance at d/c from ED?: No Referrals: Tam Aggarwal MD [Primary Care Provider] - 1-2 days Time of Disposition: 23:39
[2022-04-08 23:36] VITALS: BP 133/94; PULSE 91; RESP 26
--- NOTE | 2022-04-08 23:37 | CT ---
EXAMINATION TYPE: CT brain wo con DATE OF EXAM: 04/08/2022 COMPARISON: 03/04/2021 HISTORY: Shunt eval CT DLP: 1198.4 mGycm Automated exposure control for dose reduction was used. Images obtained of the brain with no contrast. There is right-sided ventricular shunt catheter and the tip is in the frontal horn of the left latera l ventricle. There is no hydrocephalus. There is no mass effect or midline shift. No sign of intracra nial hemorrhage. The ventricles are small. No evidence of cerebral edema. The calvarium is intact. Th ere is normal aeration of the mastoid sinuses. IMPRESSION: Shunt catheter in stable position compared to old exam. No hydrocephalus. No complicating process see n.
--- NOTE | 2022-04-08 23:42 | XR ---
EXAMINATION TYPE: XR skull limited DATE OF EXAM: 04/08/2022 COMPARISON: 03/04/2021 HISTORY: Shunt evaluation TECHNIQUE: 2 views FINDINGS: Calvarium is intact with normal vascular and suture markings. There is right-sided ventricu lar shunt catheter. Catheter appears intact. No evidence of a break. IMPRESSION: No evidence of a break of the shunt catheter. No change compared to old exam.
[2022-04-08 23:45] VITALS: TEMP 98.8
--- NOTE | 2022-04-08 23:47 | XR ---
EXAMINATION TYPE: XR KUB DATE OF EXAM: 04/08/2022 COMPARISON: 03/04/2021 HISTORY: Shunt catheter TECHNIQUE: 2 views upright FINDINGS: Bowel gas pattern is normal. No sign of intestinal obstruction or pneumoperitoneum. Fecal p attern is normal. No sign of a mass. There is ventricular shunt catheter which extends into the pelvi s on the left side. No sign of a break. IMPRESSION: Nonacute abdomen. Shunt catheter appears intact. Catheter tip is moved into the pelvis co mpared to old exam.
--- NOTE | 2022-04-08 23:49 | XR ---
EXAMINATION TYPE: XR chest 1V DATE OF EXAM: 04/08/2022 COMPARISON: 09/10/2021 HISTORY: Check catheter TECHNIQUE: FINDINGS: Heart and mediastinum are normal. Lungs are clear. Diaphragm is normal. There is right-side d ventricular shunt catheter which appears intact. IMPRESSION: Normal chest. Shunt catheter not changed in position compared to old exam.
[2022-04-09 00:08] LABS: Basophils # (A) 0.2 k/uL (0-0.2); Basophils % (A) 1 %; Eosinophils # (A) 0.3 k/uL (0-0.7); Eosinophils % (A) 2 %; HCT 43.3 % (34.0-46.0); HGB 14.3 gm/dL (11.4-16.0); Lymphocytes # (A) 3.9 k/uL (1.0-4.8); Lymphocytes % (A) 31 %; MCH 27.2 pg (25.0-35.0); MCV 82.3 fL (80.0-100.0); Mean Platelet Volume 7.4; Monocytes # (A) 0.4 k/uL (0-1.0); Monocytes % (A) 3 %; Neutrophils # (A) 7.9 k/uL (1.3-7.7); Neutrophils % (A) 62 %; Platelet Count 284 k/uL (150-450); RBC 5.25 m/uL (3.80-5.40); RDW 13.9 % (11.5-15.5); WBC 12.7 k/uL (3.8-10.6)
[2022-04-09 00:34] LABS: African American GFR (CKD) >90 (>60 ml/min/1.73 sqM); Anion Gap 6 mmol/L; Blood Urea Nitrogen 12 mg/dL (7-17); Calcium 9.2 mg/dL (8.4-10.2); Carbon Dioxide 28 mmol/L (22-30); Chloride 103 mmol/L (98-107); Glucose 84 mg/dL (74-99); Non-African American GFR(CKD) >90 (>60 ml/min/1.73 sqM); Potassium 4.2 mmol/L (3.5-5.1); Sodium 137 mmol/L (137-145)
== END 2022-04-08 23:45 | disposition left against medical advice (07) ==
LOC: EC 20:14
DX: F41.9 Anxiety disorder, unspecified (principal); R51.9 Headache, unspecified; J45.909 Unspecified asthma, uncomplicated; F17.200 Nicotine dependence, unspecified, uncomplicated; Z88.5 Allergy status to narcotic agent; Z88.0 Allergy status to penicillin; Z88.8 Allergy status to other drugs, medicaments and biological substances; Z88.1 Allergy status to other antibiotic agents; Z91.09 Other allergy status, other than to drugs and biological substances
CPT/HCPCS: 36415; 80048; 85025; 70250; 71045; 74018; 70450; 99284; 96374; 96375; J1200; J2765

== ENCOUNTER → 2022-07-13 | Outpatient (CLI) | payer OTHER ==
[2022-07-13 18:25] LABS: Basophils # (A) 0.1 k/uL (0-0.2); Basophils % (A) 1 %; Eosinophils # (A) 0.2 k/uL (0-0.7); Eosinophils % (A) 2 %; HCT 39.9 % (34.0-46.0); HGB 13.1 gm/dL (11.4-16.0); Lymphocytes # (A) 3.8 k/uL (1.0-4.8); Lymphocytes % (A) 33 %; MCH 26.8 pg (25.0-35.0); MCHC 32.9 g/dL (31.0-37.0); MCV 81.6 fL (80.0-100.0); Mean Platelet Volume 7.4; Monocytes # (A) 0.4 k/uL (0-1.0); Monocytes % (A) 4 %; Neutrophils # (A) 7.1 k/uL (1.3-7.7); Neutrophils % (A) 61 %; Platelet Count 243 k/uL (150-450); RBC 4.88 m/uL (3.80-5.40); RDW 13.7 % (11.5-15.5); WBC 11.7 k/uL (3.8-10.6)
[2022-07-13 18:36] LABS: African American GFR (CKD) >90 (>60 ml/min/1.73 sqM); Anion Gap 11 mmol/L; Blood Urea Nitrogen 10 mg/dL (7-17); Calcium 9.1 mg/dL (8.4-10.2); Carbon Dioxide 27 mmol/L (22-30); Chloride 103 mmol/L (98-107); Glucose 83 mg/dL (74-99); Non-African American GFR(CKD) >90 (>60 ml/min/1.73 sqM); Potassium 4.5 mmol/L (3.5-5.1); Sodium 141 mmol/L (137-145)
[2022-07-13 19:18] LABS: C Reactive Protein 1.4 mg/dL (<1.0)
[2022-07-13 20:01] LABS: Erythrocyte Sedimentation Rate 12 mm/hr (0-20)
== END | disposition home or self-care (01) ==
LOC: LABMAIN 17:23
PROVIDERS: ATTEND Family Medicine
DX: R78.81 Bacteremia (principal)
CPT/HCPCS: 80048; 85025; 85652; 86140; 87040

== ENCOUNTER 2022-09-14 10:05 | Emergency (ER) | payer OTHER ==
[2022-09-14] MEDS ORDERED: ACETAMINOPHEN TAB 500 MG TAB PO STA (10:44)
[2022-09-14] MEDS ORDERED: METOCLOPRAMIDE 5 MG/ML 2 ML VIAL IVP STA (10:44)
[2022-09-14] MEDS ORDERED: SODIUM CHLORIDE 0.9% 1,000 ML IV STA (10:45)
[2022-09-14] MEDS ORDERED: ONDANSETRON 4 MG/2 ML VIAL IVP STA (10:45)
--- NOTE | 2022-09-14 11:32 | CT ---
EXAMINATION TYPE: CT brain cspine wo con CT DLP: 1634.2 mGycm, Automated exposure control for dose reduction was used. DATE OF EXAM: 09/14/2022 11:09 AM COMPARISON: 04/08/2022. CLINICAL INDICATION:Female, 27 years old with history of fall; FALL, SYNCOPE, PT HAS A SHUNT PLACED I N 2019 TECHNIQUE: Brain: Multiple axial CT images of the brain were obtained without IV contrast. Cspine: Axial CT images from the skull base to the inferior aspect of T2 we obtained without intraven ous contrast. Coronal and sagittal reformatted images were also reviewed. FINDINGS: Brain: Extra-axial spaces: No abnormal extra-axial fluid collections. Ventricular system: Right frontal approach ventriculostomy catheter placement with tip near the left lateral ventricle. The left lateral ventricle is somewhat asymmetrically collapsed compared to the ri ght which is minimally dilated in comparison. Cerebral parenchyma: No acute intraparenchymal hemorrhage or mass effect. The dickerson-white junction is well differentiated. Cerebellum: Unremarkable. Mass effect: No evidence of midline shift. Intracranial vasculature: unremarkable Soft tissues: Normal. Calvarium/osseous structures: No depressed skull fracture. Paranasal sinuses and mastoid air cells: Clear. Visualized orbits: Orbital contents are intact. Cervical spine: Fracture: None. Osseous structures: Unremarkable Vertebral alignment: Within normal limits. Spinal canal/Neural Foramina: No evidence of significant spinal canal narrowing. No evidence for sign ificant neural foraminal stenosis. Neck soft tissues: Prevertebral soft tissues are within normal limits. Other: The airway is patent. The lung apices are clear. IMPRESSION: 1. No acute intracranial process. 2. Ventriculostomy catheter with tip near the left lateral ventricle, Morphology of the ventricles u nchanged from 04/08/2022. No evidence of hydrocephalus 3. No evidence of cervical spine fracture.
--- NOTE | 2022-09-14 11:33 | CT ---
EXAMINATION TYPE: CT facial bones wo con DATE OF EXAM: 09/14/2022 COMPARISON: None HISTORY: FALL, BRUISE ON FOREHEAD, NO LOC CT DLP: 1634.2 mGycm Automated exposure control for dose reduction was used. TECHNIQUE: CT scan of the sinuses is performed without contrast, axial images are obtained, coronal r eformatted images are also reviewed. FINDINGS: Small mucous retention cyst within the left maxillary sinus. Nasal septal deviation noted.. The ostiomeatal complex is patent bilaterally on the coronal images. Visualized portion of mastoid air cells show no abnormal opacification. The globes are intact bilate rally. Incidental note made of a ASSEMBLY ASSOCIATE shunt catheter. The left ventricle appears to be diminutive in s ize. IMPRESSION: 1. No acute fracture. 2. ASSEMBLY ASSOCIATE shunt catheter. Correlate with CT of the head to assess for reduced caliber of the ventricular system and functioning of the ASSEMBLY ASSOCIATE shunt.
--- NOTE | 2022-09-14 11:45 | ED ---
General Adult HPI - General Chief complaint: Head Injury Stated complaint: fell, hit head, nausea Time Seen by Provider: 09/14/22 10:35 Source: patient Mode of arrival: ambulatory Limitations: no limitations - History of Present Illness Initial comments: This is a 27-year-old female who presents to the emergency department for evaluation of head injury. Patient fell while in the shower, hitting her head. She did not lose consciousness. She does not take blood thinners. Patient reports mild headache, nausea, and dizziness. She does have a INTERVENTIONIST shunt currently for pseudotumor cerebri. Denies other injury. No vomiting, seizure- like activity, double vision, blurry vision, lightheadedness, chest pain, shortness of breath. - Related Data Home Medications Medication Instructions Recorded Confirmed Levothyroxine Sodium 25 mcg PO DAILY 09/19/18 09/03/21 lamoTRIgine [LaMICtal] 100 mg PO BID 07/30/19 09/03/21 buPROPion [Wellbutrin] 150 mg PO BID 12/30/20 09/03/21 Folic Acid 1 mg PO DAILY 08/15/21 09/03/21 Levomefolate Calcium 7.5 mg PO DAILY 09/02/21 09/03/21 [l-Methylfolate Calcium] medroxyPROGESTERone [Provera] 10 mg PO DIRECTED 09/02/21 09/03/21 Previous Rx's Medication Instructions Recorded Benzonatate [Tessalon Perles] 200 mg PO Q8H PRN #15 capsule 09/30/21 guaiFENesin [Mucinex] 600 mg PO Q12HR PRN #20 tab 09/30/21 Ondansetron Odt [Zofran Odt] 4 mg PO Q8HR PRN #10 tab 09/14/22 Allergies Allergy/AdvReac Type Severity Reaction Status Date / Time morphine Allergy Intermediate Rash/Hives Verified 09/14/22 10:31 Penicillins Allergy Intermediate Rash/Hives Verified 09/14/22 10:31 clarithromycin [From Biaxin] Allergy Rash/Hives Verified 09/14/22 10:31 heparin Allergy Rash/Hives Verified 09/14/22 10:31 steri strips AdvReac blisters Uncoded 09/14/22 10:31 Review of Systems ROS Statement: Those systems with pertinent positive or pertinent negative responses have been documented in the HPI. ROS Other: All systems not noted in ROS Statement are negative. Past Medical History Past Medical History: Asthma, Chest Pain / Angina, GERD/Reflux, Musculoskeletal Disorder, Syncope Additional Past Medical History / Comment(s): CHILDHOOD ASTHMA; Seasonal Allergies; HX PANCREATITIS; HX LT ANKLE FX, "POPS" OUT OF PLACE OCC; C/O FREQ PALPITATIONS, GETS CP, POTS, POCS; OPTIC NERVE PRESSURE/UNKNOWN CAUSE, hx 2 seizures last seizure 07/27,iron deficiency. INTERVENTIONIST SHUNT History of Any Multi-Drug Resistant Organisms: MRSA Date of last positivie culture/infection: 2014 MDRO Source:: left foot Past Surgical History: No Surgical Hx Reported Additional Past Surgical History / Comment(s): WISDOM TEETH EXTRACTED; PAIN PROCEURES, lumbar shunt D&C, INTERVENTIONIST shunt . Past Anesthesia/Blood Transfusion Reactions: Motion Sickness Past Psychological History: Anxiety, Depression, Panic Disorder, PTSD Smoking Status: Current every day smoker Past Alcohol Use History: Rare Past Drug Use History: Marijuana - Past Family History Mother Family Medical History: No Reported History General Exam Limitations: no limitations General appearance: alert, in no apparent distress Head exam: Present: normocephalic, normal inspection. Absent: atraumatic (Mild swelling of the middle forehead with minimal erythema) Eye exam: Present: normal appearance, PERRL, EOMI. Absent: scleral icterus, conjunctival injection, periorbital swelling ENT exam: Present: TM's normal bilaterally Respiratory exam: Present: normal lung sounds bilaterally. Absent: respiratory distress, wheezes, rales, rhonchi, stridor Cardiovascular Exam: Present: regular rate, normal rhythm, normal heart sounds. Absent: systolic murmur, diastolic murmur, rubs, gallop, clicks GI/Abdominal exam: Present: soft, normal bowel sounds. Absent: distended, tenderness, guarding, rebound, rigid Extremities exam: Present: normal inspection Neurological exam: Present: alert, oriented X3, CN II-XII intact Psychiatric exam: Present: normal affect, normal mood Skin exam: Present: warm, dry, intact, normal color. Absent: rash Course Vital Signs 09/14/22 09/14/22 10:29 11:51 Temperature 98.5 F 98.3 F Pulse Rate 88 90 Respiratory 20 18 Rate Blood Pressure 131/74 106/71 O2 Sat by Pulse 100 98 Oximetry Medical Decision Making - Medical Decision Making This is a 27-year-old presenting after head injury. Patient presented with mild concussive symptoms. Given her history of INTERVENTIONIST shunt we discussed CT imaging versus watchful waiting. CT of the brain, C-spine, and unremarkable obtained and interpreted by me which is negative for acute process. INTERVENTIONIST shunts in correct position, unchanged. Patient treated in the emergency department which improved her symptoms significantly. Patient eager to go home. She will be discharged with concussion instructions. Dr. Ann is my attending. Disposition Clinical Impression: Concussion, Fall, Dizziness, Nausea, Headache Disposition: HOME SELF-CARE Condition: Good Instructions (If sedation given, give patient instructions): Concussion (ED) Additional Instructions: Follow-up with primary care provider in one to 2 days. Return to the mergency department if you experience new, concerning, or worsening symptoms. Prescriptions: Ondansetron Odt [Zofran Odt] 4 mg PO Q8HR PRN #10 tab PRN Reason: Nausea Is patient prescribed a controlled substance at d/c from ED?: No Referrals: Tam Aggarwal MD [Primary Care Provider] - 1-2 days Time of Disposition: 11:44
[2022-09-14 11:52] VITALS: BP 106/71; PULSE 90; RESP 18; TEMP 98.3
== END 2022-09-14 11:52 | disposition home or self-care (01) ==
LOC: EC 10:05
DX: S06.0X0A Concussion without loss of consciousness, initial encounter (principal); R42 Dizziness and giddiness; R51.9 Headache, unspecified; R11.0 Nausea; F41.9 Anxiety disorder, unspecified; F32.A Depression, unspecified; F17.200 Nicotine dependence, unspecified, uncomplicated; F12.90 Cannabis use, unspecified, uncomplicated; J45.909 Unspecified asthma, uncomplicated; Z88.5 Allergy status to narcotic agent; Z88.0 Allergy status to penicillin; Z88.1 Allergy status to other antibiotic agents; Z88.8 Allergy status to other drugs, medicaments and biological substances; W18.2XXA Fall in (into) shower or empty bathtub, initial encounter; Y93.E1 Activity, personal bathing and showering
CPT/HCPCS: 72125; 70486; 70450; 99284; 96374; 96361; J2765

== ENCOUNTER 2022-10-16 19:15 | Emergency (ER) | payer OTHER ==
[2022-10-16 19:30] VITALS: BP 165/96; PULSE 98; RESP 20; TEMP 97
--- NOTE | 2022-10-16 19:51 | XR ---
EXAMINATION TYPE: XR shoulder complete LT DATE OF EXAM: 10/16/2022 COMPARISON: NONE HISTORY: Pain TECHNIQUE: 3 views FINDINGS: There is no evidence of fracture nor dislocation. Glenohumeral joint is intact. No patholog ic calcification. IMPRESSION: Negative left shoulder exam. No fracture.
[2022-10-16] MEDS ORDERED: ACET/COD 300 MG/30 MG STARTER PACK 6 TAB BTL PO STA (20:04)
--- NOTE | 2022-10-16 20:07 | ED ---
Upper Extremity HPI - General Chief Complaint: Extremity Injury, Upper Stated Complaint: shoulder pain Time Seen by Provider: 10/16/22 20:02 Source: patient Mode of arrival: ambulatory Limitations: no limitations - History of Present Illness Initial Comments: Patient is a 27-year-old female who presents to the ED with a chief complaint of left shoulder pain. Pain started 4 days ago. She denies injury although does report lifting 10-15 lb boxes above her head at work which she believes ortega might be attributed to. Taking Tylenol and Motrin with some relief. No numbness or tingling. - Related Data Home Medications Medication Instructions Recorded Confirmed Levothyroxine Sodium 25 mcg PO DAILY 09/19/18 09/03/21 lamoTRIgine [LaMICtal] 100 mg PO BID 07/30/19 09/03/21 buPROPion [Wellbutrin] 150 mg PO BID 12/30/20 09/03/21 Folic Acid 1 mg PO DAILY 08/15/21 09/03/21 Levomefolate Calcium 7.5 mg PO DAILY 09/02/21 09/03/21 [l-Methylfolate Calcium] medroxyPROGESTERone [Provera] 10 mg PO DIRECTED 09/02/21 09/03/21 Previous Rx's Medication Instructions Recorded Benzonatate [Tessalon Perles] 200 mg PO Q8H PRN #15 capsule 09/30/21 guaiFENesin [Mucinex] 600 mg PO Q12HR PRN #20 tab 09/30/21 Ondansetron Odt [Zofran Odt] 4 mg PO Q8HR PRN #10 tab 09/14/22 Cyclobenzaprine [Flexeril] 10 mg PO HS PRN #7 tab 10/16/22 Allergies Allergy/AdvReac Type Severity Reaction Status Date / Time morphine Allergy Intermediate Rash/Hives Verified 09/14/22 10:31 Penicillins Allergy Intermediate Rash/Hives Verified 09/14/22 10:31 clarithromycin [From Biaxin] Allergy Rash/Hives Verified 09/14/22 10:31 heparin Allergy Rash/Hives Verified 09/14/22 10:31 steri strips AdvReac blisters Uncoded 09/14/22 10:31 Review of Systems ROS Statement: Those systems with pertinent positive or pertinent negative responses have been documented in the HPI. ROS Other: All systems not noted in ROS Statement are negative. Past Medical History Past Medical History: Asthma, Chest Pain / Angina, GERD/Reflux, Musculoskeletal Disorder, Syncope Additional Past Medical History / Comment(s): CHILDHOOD ASTHMA; Seasonal Allergies; HX PANCREATITIS; HX LT ANKLE FX, "POPS" OUT OF PLACE OCC; C/O FREQ PALPITATIONS, GETS CP, POTS, POCS; OPTIC NERVE PRESSURE/UNKNOWN CAUSE, hx 2 seizures last seizure 07/27,iron deficiency. 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 Past Anesthesia/Blood Transfusion Reactions: Motion Sickness Past Psychological History: Anxiety, Depression, Panic Disorder, PTSD Smoking Status: Current every day smoker Past Alcohol Use History: Rare Past Drug Use History: Marijuana - Past Family History Mother Family Medical History: No Reported History General Exam Limitations: no limitations Head exam: Present: atraumatic, normocephalic, normal inspection Eye exam: Present: normal appearance, PERRL, EOMI. Absent: scleral icterus, conjunctival injection, periorbital swelling Respiratory exam: Present: normal lung sounds bilaterally. Absent: respiratory distress, wheezes, rales, rhonchi, stridor Cardiovascular Exam: Present: regular rate, normal rhythm, normal heart sounds. Absent: systolic murmur, diastolic murmur, rubs, gallop, clicks Left Shoulder Exam: Present: normal inspection, tenderness (moderate tenderness of trapezius muscle without overlying sweling erythema warmth). Absent: swelling, abrasion, laceration, ecchymosis, deformity, crepitus, dislocation, erythema, tenderness over AC joint Upper Arm exam: Present: normal inspection, full ROM (mild pain with flexion and abduction of the shoulder). Absent: tenderness, swelling Vascular: Present: normal capillary refill. Absent: vascular compromise Neurological exam: Present: alert, oriented X3, CN II-XII intact Psychiatric exam: Present: normal affect, normal mood Skin exam: Present: warm, dry, intact, normal color. Absent: rash Course Vital Signs 10/16/22 19:27 Temperature 97 F L Pulse Rate 98 Respiratory 20 Rate Blood Pressure 165/96 O2 Sat by Pulse 98 Oximetry Medical Decision Making - Medical Decision Making Was pt. sent in by a medical professional or institution (GASPER Melgoza, POWER REACTOR SUPERVISOR, urgent care, hospital, or senior living...) When possible be specific @ -[No] Did you speak to anyone other than the patient for history (EMS, parent, family, police, friend...)? What history was obtained from this source @ -[No] Did you review nursing and triage notes (agree or disagree)? Why? @ -[I reviewed and agree with nursing and triage notes] Were old charts reviewed (outside hosp., previous admission, EMS record, old EKG, old radiological studies, urgent care reports/EKG's, senior living records)? Report findings @ -[No old charts were reviewed] Differential Diagnosis (chest pain, altered mental status, abdominal pain women, abdominal pain men, vaginal bleeding, weakness, fever, dyspnea, syncope, headache, dizziness, GI bleed, back pain, seizure, CVA, palpatations, mental health)? @ -rotator cuff tear, contusion, fracture EKG interpreted by me (3pts min.). @ -NA X-rays interpreted by me (1pt min.). @ Yes, left shoulder xray shows no acute process CT interpreted by me (1pt min.). @ -[None done] U/S interpreted by me (1pt. min.). @ -[None done] What testing was considered but not performed or refused? (CT, X-rays, U/S, labs)? Why? @ -[None] What meds were considered but not given or refused? Why? @ -[None] Did you discuss the management of the patient with other professionals (professionals i.e. GASPER Melgoza, POWER REACTOR SUPERVISOR, lab, RT, psych nurse, school social worker, band tier, teacher, housing officer, watch caser)? Give summary @ -[No] Was smoking cessation discussed for >3mins.? @ -[No] Was critical care preformed (if so, how long)? @ -[No] Were there social determinants of health that impacted care today? How? (Homelessness, low income, unemployed, alcoholism, drug addiction, transportation, low edu. Level, literacy, decrease access to med. care, retirement, rehab)? @ -[No] Was there de-escalation of care discussed even if they declined (Discuss DNR or withdrawal of care, Hospice)? DNR status @ -[No] What co-morbidities impacted this encounter? (DM, HTN, Smoking, COPD, CAD, Cancer, CVA, ARF, Chemo, Hep., AIDS, mental health diagnosis, sleep apnea, morbid obesity)? @ -[None] Was patient admitted / discharged? Hospital course, mention meds given and route, prescriptions, significant lab abnormalities, going to OR and other pertinent info. @ -this is a 27-year-old presenting with left shoulder pain. Left shoulder x- ray unremarkable.Patient has tenderness to left trapezius muscle. She has mild pain with shoulder flexion and abduction. We discussed symptomatic management at home. Patient to follow up with tuberculosis specialist if no improvement of symptoms in 1-2 weeks. Will send patient home with Motrin and Tylenol 3 starterpack. Undiagnosed new problem with uncertain prognosis? @ -[No] Drug Therapy requiring intensive monitoring for toxicity (Heparin, Nitro, Insulin, Cardizem)? @ -[No] Were any procedures done? @ -[No] Diagnosis/symptom? @ -left shoulder pain Acute, or Chronic, or Acute on Chronic? @ -acute Uncomplicated (without systemic symptoms) or Complicated (systemic symptoms)? @ -uncomplicated Side effects of treatment? @ -[No] Exacerbation, Progression, or Severe Exacerbation? @ -[No] Poses a threat to life or bodily function? How? (Chest pain, USA, PA, pneumonia, PE, COPD, DKA, ARF, appy, cholecystitis, CVA, Diverticulitis, Homicidal, Suicidal, threat to staff... and all critical care pts) @ -[No] Dr. Santos is my attending. Disposition Clinical Impression: Left shoulder pain Disposition: HOME SELF-CARE Condition: Good Instructions (If sedation given, give patient instructions): P.R.I.C.E. Treatment (ED), Shoulder Pain (ED) Additional Instructions: Rest injury. Continue Tylenol and Motrin, save Tylenol 3 for severe pain. Do not take Tylenol 3 and Tylenol together. Warm compress may improve pain. Follow up with tuberculosis specialist in 1-2 weeks if symptoms do not improve. Return to the ED if you experience new, concerning, or worsening symptoms. Prescriptions: Cyclobenzaprine [Flexeril] 10 mg PO HS PRN #7 tab PRN Reason: Pain Is patient prescribed a controlled substance at d/c from ED?: No Referrals: Tam Aggarwal MD [Primary Care Provider] - 1-2 days Barrie Hoyos MD [STAFF PHYSICIAN] - 1-2 days
== END 2022-10-16 20:35 | disposition home or self-care (01) ==
LOC: EC 19:15
DX: M25.512 Pain in left shoulder (principal); J45.909 Unspecified asthma, uncomplicated; F41.9 Anxiety disorder, unspecified; F32.A Depression, unspecified; F17.200 Nicotine dependence, unspecified, uncomplicated; F12.90 Cannabis use, unspecified, uncomplicated; Z88.1 Allergy status to other antibiotic agents; Z88.8 Allergy status to other drugs, medicaments and biological substances; Z88.5 Allergy status to narcotic agent
CPT/HCPCS: 99283

== ENCOUNTER 2022-11-13 15:40 | Emergency (ER) | payer MEDICAID, OTHER ==
[2022-11-13 15:44] VITALS: BP 124/86; PULSE 90; RESP 18; TEMP 97.3
[2022-11-13] MEDS ORDERED: KETOROLAC 15 MG/ML 1 ML VIAL IM STA (15:54)
[2022-11-13] MEDS ORDERED: LIDOCAINE 5% PATCH TOPICAL SCH (16:00)
--- NOTE | 2022-11-13 16:00 | ED ---
Upper Extremity HPI - General Chief Complaint: Extremity Injury, Upper Stated Complaint: revisit - shoulder pain Time Seen by Provider: 11/13/22 15:47 Source: patient, family, RN notes reviewed, old records reviewed Mode of arrival: ambulatory Limitations: no limitations - History of Present Illness Initial Comments: This is a nontoxic-appearing 27-year-old obese female that presents to the emergency room with left shoulder pain for a month. States was seen in the emergency room for this last month and directed to follow up with orthopedics but she did not have insurance coverage. She continues to have pain that radiates into the left side of her neck and feels a popping sensation. She states she was going to call her primary care Dr Aggarwal today but decided to come to the emergency room. MD Complaint: Injury to:: left, shoulder -: month(s) (1) Severity scale (1-10): 8 Improves With: immobilization Worsens With: movement of extremity, other (palpation) Context: other (heavy lifting) Associated Symptoms: neck pain, heard/felt popping sensat - Related Data Home Medications Medication Instructions Recorded Confirmed Levothyroxine Sodium 25 mcg PO DAILY 09/19/18 09/03/21 lamoTRIgine [LaMICtal] 100 mg PO BID 07/30/19 09/03/21 buPROPion [Wellbutrin] 150 mg PO BID 12/30/20 09/03/21 Folic Acid 1 mg PO DAILY 08/15/21 09/03/21 Levomefolate Calcium 7.5 mg PO DAILY 09/02/21 09/03/21 [l-Methylfolate Calcium] medroxyPROGESTERone [Provera] 10 mg PO DIRECTED 09/02/21 09/03/21 Previous Rx's Medication Instructions Recorded Benzonatate [Tessalon Perles] 200 mg PO Q8H PRN #15 capsule 09/30/21 guaiFENesin [Mucinex] 600 mg PO Q12HR PRN #20 tab 09/30/21 Ondansetron Odt [Zofran Odt] 4 mg PO Q8HR PRN #10 tab 09/14/22 Cyclobenzaprine [Flexeril] 10 mg PO HS PRN #7 tab 10/16/22 Lidocaine 5% Patch [Lidoderm] 1 patch TOPICAL DAILY 14 Days #14 11/13/22 patch Allergies Allergy/AdvReac Type Severity Reaction Status Date / Time morphine Allergy Intermediate Rash/Hives Verified 11/13/22 15:44 Penicillins Allergy Intermediate Rash/Hives Verified 11/13/22 15:44 clarithromycin [From Biaxin] Allergy Rash/Hives Verified 11/13/22 15:44 heparin Allergy Rash/Hives Verified 11/13/22 15:44 steri strips AdvReac blisters Uncoded 11/13/22 15:44 Review of Systems ROS Statement: Those systems with pertinent positive or pertinent negative responses have been documented in the HPI. ROS Other: All systems not noted in ROS Statement are negative. Past Medical History Past Medical History: Asthma, Chest Pain / Angina, GERD/Reflux, Musculoskeletal Disorder, Syncope Additional Past Medical History / Comment(s): CHILDHOOD ASTHMA; Seasonal Allergies; HX PANCREATITIS; HX LT ANKLE FX, "POPS" OUT OF PLACE OCC; C/O FREQ PALPITATIONS, GETS CP, POTS, POCS; OPTIC NERVE PRESSURE/UNKNOWN CAUSE, hx 2 seizures last seizure 07/27,iron deficiency. 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 Past Anesthesia/Blood Transfusion Reactions: Motion Sickness Past Psychological History: Anxiety, Depression, Panic Disorder, PTSD Smoking Status: Current every day smoker Past Alcohol Use History: Rare Past Drug Use History: Marijuana - Past Family History Mother Family Medical History: No Reported History General Exam Limitations: no limitations General appearance: alert, in no apparent distress Head exam: Present: atraumatic Eye exam: Present: normal appearance Neck exam: Present: tenderness (left lateral, no c-spine pain), full ROM. Absent: meningismus Respiratory exam: Present: respiratory distress, accessory muscle use Cardiovascular Exam: Present: regular rate Left Shoulder Exam: Present: tenderness, tenderness over AC joint. Absent: swelling, abrasion, laceration, ecchymosis, deformity, crepitus, dislocation Upper Arm exam: Absent: tenderness Elbow exam: Absent: tenderness Vascular: Present: normal capillary refill. Absent: vascular compromise Neurological exam: Present: alert, oriented X3 Psychiatric exam: Present: normal affect, normal mood Skin exam: Present: warm, dry, normal color. Absent: cyanosis, diaphoretic, pallor Course Vital Signs 11/13/22 15:41 Temperature 97.3 F L Pulse Rate 90 Respiratory 18 Rate Blood Pressure 124/86 O2 Sat by Pulse 99 Oximetry Medical Decision Making - Medical Decision Making X-ray left shoulder performed on October 16 shows no evidence of fracture dislocation. She was referred to orthopedics at that time but has not done so. Patient states she continues to have pain with movement of the arm radiating up the left side of her neck. This is likely a tear and she should be seen by orthopedics. I did explain this to the patient. She was given a sling, Toradol and Lidoderm patch. Directed to continue Tylenol and Motrin at home and use [id number] topical medications if Lidoderm patches are not covered by insurance. She was also directed to follow up with Dr. Aggarwal if she is unable to get into ortho. She is agreeable to this plan of care. Case discussed with Dr. Barajas Was pt. sent in by a medical professional or institution? @ -no Did you speak to anyone other than the patient for history? @ -no Did you review nursing and triage notes? @ -yes i agree Were old charts reviewed? @ -yes previous xr 10/16/22 Differential Diagnosis? @ -Shoulder strain, AC joint injury, rotator cuff tear, cervical radiculopathy What testing was considered but not performed? (CT, X-rays, U/S, labs)? Why? @X-ray was considered however she has not reinjured the shoulder and x-ray was completed on October 16 showing no fracture What meds were considered but not given? Why? @ -none Did you discuss the management of the patient with other professionals? @ -no Did you reconcile home meds? @ -no Was smoking cessation discussed for >3mins.? @ -[none] Was critical care preformed (if so, how long)? @ -no Were there social determinants of health that impacted care today? How? (Homelessness, low income, unemployed, alcoholism, drug addiction, transportation, low edu. Level, literacy, decrease access to med. care, alf, rehab)? @ -Access to orthopedics due to insurance restrictions Was there de-escalation of care discussed even if they declined? (Discuss DNR or withdrawal of care, Hospice)? @ -no What co-morbidities impacted this encounter? (DM, HTN, Smoking, COPD, CAD, Cancer, CVA, Hep., AIDS, mental health diagnosis, sleep apnea, morbid obesity)? @ -asthma, obesity Was patient admitted / discharged? @ -discharged Undiagnosed new problem with uncertain prognosis? @ -[none] Drug Therapy requiring intensive monitoring for toxicity (Heparin, Nitro, Insulin, Cardizem)? @ -no Were any procedures done? @ -no Diagnosis/symptom? @ -shoulder strain, internal derangement left shoulder Acute, or Chronic, or Acute on Chronic? @ -acute Uncomplicated (without systemic symptoms) or Complicated (systemic symptoms)? @ -Uncomplicated Side effects of treatment? @ -[none] Exacerbation, Progression, or Severe Exacerbation] @ -[no] Poses a threat to life or bodily function? @ -no Disposition Clinical Impression: Strain of shoulder, Internal derangement of left shoulder Disposition: HOME SELF-CARE Condition: Good Instructions (If sedation given, give patient instructions): Shoulder Pain (ED) Additional Instructions: Use sling and take Tylenol and Motrin as needed for pain. You can use topical Lidoderm patches or topical capsaicin creams. Follow-up with orthopedics as directed. If unable to get into orthopedisc follow-up with your primary care doctor for continuation of care. Prescriptions: Lidocaine 5% Patch [Lidoderm] 1 patch TOPICAL DAILY 14 Days #14 patch Is patient prescribed a controlled substance at d/c from ED?: No Referrals: Tam Aggarwal MD [Primary Care Provider] - 1-2 days Time of Disposition: 16:00
== END 2022-11-13 16:29 | disposition home or self-care (01) ==
LOC: EC 15:40
DX: S46.912A Strain of unspecified muscle, fascia and tendon at shoulder and upper arm level, left arm, initial encounter (principal); M24.812 Other specific joint derangements of left shoulder, not elsewhere classified; J45.909 Unspecified asthma, uncomplicated; F41.9 Anxiety disorder, unspecified; F32.A Depression, unspecified; F17.200 Nicotine dependence, unspecified, uncomplicated; F12.90 Cannabis use, unspecified, uncomplicated; Z88.0 Allergy status to penicillin; Z88.8 Allergy status to other drugs, medicaments and biological substances; Z88.5 Allergy status to narcotic agent; Z79.899 Other long term (current) drug therapy; X50.0XXA Overexertion from strenuous movement or load, initial encounter
CPT/HCPCS: 99283; 96372; J1885

== ENCOUNTER 2023-01-14 15:13 | Emergency (ER) | payer MEDICAID ==
[2023-01-14 15:27] VITALS: BP 165/83; PULSE 102; TEMP 99.2
--- NOTE | 2023-01-14 15:48 | ED ---
URI HPI - General Chief Complaint: Upper Respiratory Infection Stated Complaint: SOB Time Seen by Provider: 01/14/23 15:29 Source: patient, RN notes reviewed, old records reviewed Mode of arrival: ambulatory Limitations: no limitations - History of Present Illness Initial Comments: This is a well-appearing 27-year-old morbidly obese female that presents to the emergency room with complaints of cough congestion and earache since Wednesday. Did see her primary care doctor, Wednesday stated she has bilateral ear infections and put her on antibiotics. Patient states that she still is congested. They did test her for coronavirus and influenza and was negative. She does have a history of childhood asthma and does not take any medicine daily basis. Is a daily smoker. MD Complaint: fever, cough, nasal congestion -: days(s) (5) Severity scale (1-10): 6 Consistency: constant Improves With: nothing Treatments Prior to Arrival: antibiotics - Related Data Home Medications Medication Instructions Recorded Confirmed Levothyroxine Sodium 25 mcg PO DAILY 09/19/18 09/03/21 lamoTRIgine [LaMICtal] 100 mg PO BID 07/30/19 09/03/21 buPROPion [Wellbutrin] 150 mg PO BID 12/30/20 09/03/21 Folic Acid 1 mg PO DAILY 08/15/21 09/03/21 Levomefolate Calcium 7.5 mg PO DAILY 09/02/21 09/03/21 [l-Methylfolate Calcium] medroxyPROGESTERone [Provera] 10 mg PO DIRECTED 09/02/21 09/03/21 Previous Rx's Medication Instructions Recorded Benzonatate [Tessalon Perles] 200 mg PO Q8H PRN #15 capsule 09/30/21 guaiFENesin [Mucinex] 600 mg PO Q12HR PRN #20 tab 09/30/21 Ondansetron Odt [Zofran Odt] 4 mg PO Q8HR PRN #10 tab 09/14/22 Cyclobenzaprine [Flexeril] 10 mg PO HS PRN #7 tab 10/16/22 Lidocaine 5% Patch [Lidoderm] 1 patch TOPICAL DAILY 14 Days #14 11/13/22 patch Albuterol Inhaler [Ventolin Hfa 1 - 2 puff INHALATION Q6H PRN #1 01/14/23 Inhaler] each predniSONE 50 mg PO DAILY #5 tab 01/14/23 Allergies Allergy/AdvReac Type Severity Reaction Status Date / Time morphine Allergy Intermediate Rash/Hives Verified 01/14/23 15:28 Penicillins Allergy Intermediate Rash/Hives Verified 01/14/23 15:28 clarithromycin [From Biaxin] Allergy Rash/Hives Verified 01/14/23 15:28 heparin Allergy Rash/Hives Verified 01/14/23 15:28 steri strips AdvReac blisters Uncoded 01/14/23 15:28 Review of Systems ROS Statement: Those systems with pertinent positive or pertinent negative responses have been documented in the HPI. ROS Other: All systems not noted in ROS Statement are negative. Past Medical History Past Medical History: Asthma, Chest Pain / Angina, GERD/Reflux, Musculoskeletal Disorder, Syncope Additional Past Medical History / Comment(s): CHILDHOOD ASTHMA; Seasonal Allergies; HX PANCREATITIS; HX LT ANKLE FX, "POPS" OUT OF PLACE OCC; C/O FREQ PALPITATIONS, GETS CP, POTS, POCS; OPTIC NERVE PRESSURE/UNKNOWN CAUSE, hx 2 seizures last seizure 07/27,iron deficiency. VULCANIZER RUBBER PLATE SHUNT History of Any Multi-Drug Resistant Organisms: MRSA Date of last positivie culture/infection: 2014 MDRO Source:: left foot Past Surgical History: No Surgical Hx Reported Additional Past Surgical History / Comment(s): WISDOM TEETH EXTRACTED; PAIN PROCEURES, lumbar shunt D&C, VULCANIZER RUBBER PLATE shunt . Past Anesthesia/Blood Transfusion Reactions: Motion Sickness Past Psychological History: Anxiety, Depression, Panic Disorder, PTSD Smoking Status: Current every day smoker Past Alcohol Use History: Rare Past Drug Use History: Marijuana - Past Family History Mother Family Medical History: No Reported History General Exam Limitations: no limitations General appearance: alert, in no apparent distress Head exam: Present: atraumatic, normocephalic, normal inspection Eye exam: Present: normal appearance. Absent: scleral icterus, conjunctival injection, periorbital swelling, periorbital tenderness ENT exam: Present: normal oropharynx, mucous membranes moist Expanded Mouth exam: Present: normal external inspection, tongue normal, tongue elevation. Absent: drooling, trismus, muffled voice Throat exam: tonsillomegaly. negative: tonsillar erythema, tonsillar exudate, R peritonsillar mass, L peritonsillar mass Neck exam: Present: full ROM. Absent: tenderness, meningismus, lymphadenopathy Respiratory exam: Present: normal lung sounds bilaterally. Absent: respiratory distress, accessory muscle use Cardiovascular Exam: Present: tachycardia GI/Abdominal exam: Present: soft Extremities exam: Present: normal capillary refill. Absent: pedal edema Back exam: Absent: tenderness, CVA tenderness (R), CVA tenderness (L) Neurological exam: Present: alert, oriented X3, CN II-XII intact, normal gait Psychiatric exam: Present: normal affect, normal mood Skin exam: Present: warm, dry, normal color. Absent: cyanosis, diaphoretic, petechiae, pallor Course Vital Signs 01/14/23 01/14/23 15:23 15:46 Temperature 99.2 F Pulse Rate 102 H Respiratory 20 16 Rate Blood Pressure 165/83 O2 Sat by Pulse 96 Oximetry Medical Decision Making - Medical Decision Making Patient presents with URI symptoms since Wednesday. Seen her primary care doctor on Wednesday was placed on antibiotics. Continues to have congestion. She has a history of asthma and states is wheezing at home. She was given a prescription for an albuterol inhaler and prednisone. Directed to continue the antibiotics prescribed by her primary care doctor and follow-up with her doctor next week. She is agreeable to this plan of care. She was given a work note as requested. Case discussed with Dr. Pino Was pt. sent in by a medical professional or institution (GASPER Melgoza, ARTIFICIAL FLOWER MAKER, urgent care, hospital, or [place] [facility]...) When possible be specific @ -No Did you speak to anyone other than the patient for history (EMS, parent, family, police, friend...)? What history was obtained from this source @ -No Did you review nursing and triage notes (agree or disagree)? Why? @ -I reviewed and agree with nursing and triage notes Were old charts reviewed (outside hosp., previous admission, EMS record, old EKG, old radiological studies, urgent care reports/EKG's, [place] [facility] records)? Report findings @ -No old charts were reviewed Differential Diagnosis (chest pain, altered mental status, abdominal pain women, abdominal pain men, vaginal bleeding, weakness, fever, dyspnea, syncope, headache, dizziness, GI bleed, back pain, seizure, CVA, palpatations, mental health, musculoskeletal)? @ -URI, asthma exacerbation, pneumonia, this is not an all inclusive last EKG interpreted by me (3pts min.). @ -n/a X-rays interpreted by me (1pt min.). @ -None done CT interpreted by me (1pt min.). @ -None done U/S interpreted by me (1pt. min.). @ -None done What testing was considered but not performed or refused? (CT, X-rays, U/S, labs)? Why? @ -None What meds were considered but not given or refused? Why? @ -None Did you discuss the management of the patient with other professionals (professionals i.e. Dr., PA, ARTIFICIAL FLOWER MAKER, lab, RT, psych nurse, social science professor, crab meat processor, teacher, records officer, registered nurse hh case manager)? Give summary @ -No Was smoking cessation discussed for >3mins.? @ -yes Was critical care preformed (if so, how long)? @ -No Were there social determinants of health that impacted care today? How? (Homelessness, low income, unemployed, alcoholism, drug addiction, transportation, low edu. Level, literacy, decrease access to med. care, custodial, rehab)? @ -No Was there de-escalation of care discussed even if they declined (Discuss DNR or withdrawal of care, Hospice)? DNR status @ -No What co-morbidities impacted this encounter? (DM, HTN, Smoking, COPD, CAD, Cancer, CVA, ARF, Chemo, Hep., AIDS, mental health diagnosis, sleep apnea, morbid obesity)? @ -Obesity, asthma, GERD Was patient admitted / discharged? Hospital course, mention meds given and route, prescriptions, significant lab abnormalities, going to OR and other pertinent info. @ -Discharged Undiagnosed new problem with uncertain prognosis? @ -No Drug Therapy requiring intensive monitoring for toxicity (Heparin, Nitro, Insulin, Cardizem)? @ -No Were any procedures done? @ -No Diagnosis/symptom? @ -URI Acute, or Chronic, or Acute on Chronic? @ -Acute Uncomplicated (without systemic symptoms) or Complicated (systemic symptoms)? @ -Uncomplicated Side effects of treatment? @ -No Exacerbation, Progression, or Severe Exacerbation? @ -No Poses a threat to life or bodily function? How? (Chest pain, [place], [place], pneumonia, PE, COPD, DKA, ARF, appy, cholecystitis, CVA, Diverticulitis, Homicidal, Suicidal, threat to staff... and all critical care pts) @ -No Disposition Clinical Impression: Upper respiratory tract infection Disposition: HOME SELF-CARE Condition: Good Instructions (If sedation given, give patient instructions): Upper Respiratory Infection (ED) Additional Instructions: Tylenol and or Motrin as needed for any fevers or discomfort. Increase your fluid intake. Use albuterol inhaler as prescribed. Continue antibiotics as prescribed by your primary care doctor. You should not work until you are 24 hours without fever. Follow-up with your primary care doctor on Wednesday for reevaluation. Return with any new or concerning symptoms. Prescriptions: predniSONE 50 mg PO DAILY #5 tab Albuterol Inhaler [Ventolin Hfa Inhaler] 1 - 2 puff INHALATION Q6H PRN #1 each PRN Reason: Wheezing Is patient prescribed a controlled substance at d/c from ED?: No Referrals: Tam Aggarwal MD [Primary Care Provider] - 1-2 days Time of Disposition: 15:46
[2023-01-14 15:49] VITALS: RESP 16
== END 2023-01-14 16:09 | disposition home or self-care (01) ==
LOC: EC 15:13
DX: J06.9 Acute upper respiratory infection, unspecified (principal); F12.90 Cannabis use, unspecified, uncomplicated; J45.909 Unspecified asthma, uncomplicated; F41.9 Anxiety disorder, unspecified; F17.200 Nicotine dependence, unspecified, uncomplicated; Z88.0 Allergy status to penicillin; Z88.1 Allergy status to other antibiotic agents; Z88.8 Allergy status to other drugs, medicaments and biological substances; Z79.899 Other long term (current) drug therapy
CPT/HCPCS: 99284

== ENCOUNTER 2023-05-12 06:10 | Emergency (ER) | payer MEDICAID, OTHER ==
[2023-05-12 06:16] VITALS: RESP 18
[2023-05-12] MEDS ORDERED: methylPREDNISolone SOD SUCCI 125 MG/2 ML VIAL IM ONE (06:25)
--- NOTE | 2023-05-12 06:30 | ED ---
ENT HPI - General Chief complaint: ENT Stated complaint: Sore Throat Time Seen by Provider: 05/12/23 06:20 Source: patient, RN notes reviewed Mode of arrival: ambulatory Limitations: no limitations - History of Present Illness Initial comments: Patient is a 28-year-old female presenting to the emergency room with complaints of sore throat ongoing for 24-48 hours along with the development of right ear pain over the last 24 hours. She states swallowing has become more difficult over the last several hours causing her to present to the emergency room. She denies any known exposure to viral illnesses or strep throat. She has been taking [id number] cold and flu medication with some improvement in symptoms but overall symptoms persist. Despite pain with swallowing she denies any difficulty in breathing, chest pain, shortness of breath, abdominal pain, nausea, vomiting, fevers or chills. 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 - Related Data Home Medications Medication Instructions Recorded Confirmed Levothyroxine Sodium 25 mcg PO DAILY 09/19/18 09/03/21 lamoTRIgine [LaMICtal] 100 mg PO BID 07/30/19 09/03/21 buPROPion [Wellbutrin] 150 mg PO BID 12/30/20 09/03/21 Folic Acid 1 mg PO DAILY 08/15/21 09/03/21 Levomefolate Calcium 7.5 mg PO DAILY 09/02/21 09/03/21 [l-Methylfolate Calcium] medroxyPROGESTERone [Provera] 10 mg PO DIRECTED 09/02/21 09/03/21 Previous Rx's Medication Instructions Recorded Benzonatate [Tessalon Perles] 200 mg PO Q8H PRN #15 capsule 09/30/21 guaiFENesin [Mucinex] 600 mg PO Q12HR PRN #20 tab 09/30/21 Ondansetron Odt [Zofran Odt] 4 mg PO Q8HR PRN #10 tab 09/14/22 Cyclobenzaprine [Flexeril] 10 mg PO HS PRN #7 tab 10/16/22 Lidocaine 5% Patch [Lidoderm] 1 patch TOPICAL DAILY 14 Days #14 11/13/22 patch Albuterol Inhaler [Ventolin Hfa 1 - 2 puff INHALATION Q6H PRN #1 01/14/23 Inhaler] each predniSONE 50 mg PO DAILY #5 tab 01/14/23 methylPREDNISolone Dose Pack 4 mg PO DIRECTED #21 tab 05/12/23 [Medrol Dose Pack] Allergies Allergy/AdvReac Type Severity Reaction Status Date / Time morphine Allergy Intermediate Rash/Hives Verified 05/12/23 06:12 Penicillins Allergy Intermediate Rash/Hives Verified 05/12/23 06:12 clarithromycin [From Biaxin] Allergy Rash/Hives Verified 05/12/23 06:12 heparin Allergy Rash/Hives Verified 05/12/23 06:12 steri strips AdvReac blisters Uncoded 05/12/23 06:12 Review of Systems ROS Statement: Those systems with pertinent positive or pertinent negative responses have been documented in the HPI. ROS Other: All systems not noted in ROS Statement are negative. Past Medical History Past Medical History: Asthma, Chest Pain / Angina, GERD/Reflux, Musculoskeletal Disorder, Syncope Additional Past Medical History / Comment(s): CHILDHOOD ASTHMA; Seasonal Allergies; HX PANCREATITIS; HX LT ANKLE FX, "POPS" OUT OF PLACE OCC; C/O FREQ PALPITATIONS, GETS CP, POTS, POCS; OPTIC NERVE PRESSURE/UNKNOWN CAUSE, hx 2 seizures last seizure 07/27,iron deficiency. 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 Past Anesthesia/Blood Transfusion Reactions: Motion Sickness Past Psychological History: Anxiety, Depression, Panic Disorder, PTSD Smoking Status: Vaper Past Alcohol Use History: Rare Past Drug Use History: Marijuana - Past Family History Mother Family Medical History: No Reported History General Exam Limitations: no limitations General appearance: obese Head exam: Present: atraumatic, normocephalic, normal inspection Eye exam: Present: normal appearance, PERRL, EOMI. Absent: scleral icterus, conjunctival injection, nystagmus, periorbital swelling Expanded Ear exam: Present: normal external inspection TM/Canal exam: Erythema: Right TM, Bulging: Right TM, Effusion: Right TM, Canal Tenderness: Right TM Mouth exam: Present: normal external inspection Throat exam: tonsillar erythema, tonsillomegaly, tonsillar exudate Neck exam: Present: tenderness, full ROM, lymphadenopathy Respiratory exam: Present: normal lung sounds bilaterally. Absent: respiratory distress, wheezes, rales, rhonchi, stridor Cardiovascular Exam: Present: regular rate, normal rhythm, normal heart sounds. Absent: systolic murmur, diastolic murmur, rubs, gallop, clicks GI/Abdominal exam: Present: soft, normal bowel sounds. Absent: distended, tenderness, guarding, rebound, rigid Extremities exam: Present: normal inspection. Absent: pedal edema, joint swelling Back exam: Present: normal inspection Neurological exam: Present: alert, oriented X3, CN II-XII intact Psychiatric exam: Present: normal affect, normal mood Skin exam: Present: warm, dry, intact, normal color. Absent: rash Course Vital Signs 05/12/23 05/12/23 06:13 08:23 Temperature 98.1 F 98.2 F Pulse Rate 95 89 Respiratory 18 18 Rate Blood Pressure 138/97 142/88 O2 Sat by Pulse 98 98 Oximetry Medical Decision Making - Medical Decision Making Was pt. sent in by a medical professional or institution (, PA, REAL TIME ANALYST, urgent care, hospital, or alf...) When possible be specific @ -No Did you speak to anyone other than the patient for history (EMS, parent, family, police, friend...)? What history was obtained from this source @ -No Did you review nursing and triage notes (agree or disagree)? Why? @ -I reviewed and agree with nursing and triage notes Were old charts reviewed (outside hosp., previous admission, EMS record, old EKG, old radiological studies, urgent care reports/EKG's, alf records)? Report findings @ -No old charts were reviewed Differential Diagnosis (chest pain, altered mental status, abdominal pain women, abdominal pain men, vaginal bleeding, weakness, fever, dyspnea, syncope, headache, dizziness, GI bleed, back pain, seizure, CVA, palpatations, mental health, musculoskeletal)? @ -Differential Upper respiratory symptoms: Pneumonia, viral URI, bronchitis, otitis, sinusitis, streptococcal pharyngitis, mononucleosis, peritonsillar Abscess, retropharyngeal Abscess, epiglottitis, this is not meant to be an all-inclusive list. EKG interpreted by me (3pts min.). @ -None done X-rays interpreted by me (1pt min.). @ -None done CT interpreted by me (1pt min.). @ -None done U/S interpreted by me (1pt. min.). @ -None done What testing was considered but not performed or refused? (CT, X-rays, U/S, labs)? Why? @ -None What meds were considered but not given or refused? Why? @ -None Did you discuss the management of the patient with other professionals (professionals i.e. , PA, REAL TIME ANALYST, lab, RT, psych nurse, social media executive, conductor/engineer, teacher, client sales and service officer, pillowcase cutter)? Give summary @ -No Was smoking cessation discussed for >3mins.? @ -No Was critical care preformed (if so, how long)? @ -No Were there social determinants of health that impacted care today? How? (Homelessness, low income, unemployed, alcoholism, drug addiction, transportation, low edu. Level, literacy, decrease access to med. care, [place] [facility], rehab)? @ -No Was there de-escalation of care discussed even if they declined (Discuss DNR or withdrawal of care, Hospice)? DNR status @ -No What co-morbidities impacted this encounter? (DM, HTN, Smoking, COPD, CAD, Cancer, CVA, ARF, Chemo, Hep., AIDS, mental health diagnosis, sleep apnea, morbid obesity)? @ -None Was patient admitted / discharged? Hospital course, mention meds given and route, prescriptions, significant lab abnormalities, going to OR and other pertinent info. @ -28-year-old female presenting to the emergency room with complaints of sore throat ongoing for 24-48 hours along with the development of right ear pain over the last 24 hours. She states swallowing has become more difficult over the last several hours causing her to present to the emergency room without any difficulty in breathing. Exam reveals significant tonsillomegaly with exudate will obtain streptococcal a swallow along with viral swelling for COVID, RSV and influenza. Due to tonsillar edema will give 1 dose of Solu-Medrol IM and monitor response and results. Swabs negative for influenza, RSV and Covid along with strep a. Tonsillar swelling improved with Solu-Medrol. No indication for further diagnostic imaging or laboratory studies at this time. Due to severity of tonsillar enlargement will proceed with Medrol Dosepak on discharge. No indication for antibiotic therapy given only 48 hours of symptoms with negative strep a swelling. Findings discussed with patient; she is agreeable with this plan. Encouraged follow-up with primary care provider. Questions and concerns answered. Return parameters to the emergency room discussed. Will discharge patient home in stable condition on Medrol Dosepak advising follow-up with primary care provider and symptomatic management with Tylenol for pain as needed for tonsillar and right otitis media and externa. Undiagnosed new problem with uncertain prognosis? @ -No Drug Therapy requiring intensive monitoring for toxicity (Heparin, Nitro, Insulin, Cardizem)? @ -No Were any procedures done? @ -No Diagnosis/symptom? @ -Tonsillitis Acute, or Chronic, or Acute on Chronic? @ -Acute Uncomplicated (without systemic symptoms) or Complicated (systemic symptoms)? @ -Uncomplicated Side effects of treatment? @ -No Exacerbation, Progression, or Severe Exacerbation? @ -No Poses a threat to life or bodily function? How? (Chest pain, [place], [place], pneumonia, PE, COPD, DKA, ARF, appy, cholecystitis, CVA, Diverticulitis, Homicidal, Suicidal, threat to staff... and all critical care pts) @ -No Diagnosis/symptom? @ -Right otitis media and external Acute, or Chronic, or Acute on Chronic? @ -Acute Uncomplicated (without systemic symptoms) or Complicated (systemic symptoms)? @ -Uncomplicated Side effects of treatment? @ -none Exacerbation, Progression, or Severe Exacerbation] @ -no Poses a threat to life or bodily function? @ -no Case discussed with Dr. Douglas - Lab Data Lab Results 05/12/23 05/12/23 Range/Units 06:20 06:20 Influenza Type A (PCR) Not Detected (Not Detectd) Influenza Type B (PCR) Not Detected (Not Detectd) RSV (PCR) Not Detected (Not Detectd) SARS-CoV-2 (PCR) Not Detected (Not Detectd) Group A Strep (PCR) NOT DETECTED (Not Detectd) Disposition Clinical Impression: Otitis media, Otitis externa, Tonsillitis Disposition: HOME SELF-CARE Condition: Stable Instructions (If sedation given, give patient instructions): Ear Infection (ED), Tonsillitis (ED) Additional Instructions: Complete course of steroid as prescribed. Do not take other steroids or NSAIDs such as ibuprofen while you are taking steroids. Drink plenty of fluids. Daily antihistamine use is encouraged. Please follow-up with your primary care provider. May return to work if fever free. Please return to the Emergency Department if symptoms worsen or any other concerns. Prescriptions: methylPREDNISolone Dose Pack [Medrol Dose Pack] 4 mg PO DIRECTED #21 tab Is patient prescribed a controlled substance at d/c from ED?: No Referrals: Tam Aggarwal MD [Primary Care Provider] - 1-2 days Time of Disposition: 07:53
[2023-05-12 08:24] VITALS: BP 142/88; PULSE 89; TEMP 98.2
== END 2023-05-12 08:25 | disposition home or self-care (01) ==
LOC: EC 06:10
DX: H66.91 Otitis media, unspecified, right ear (principal); H60.91 Unspecified otitis externa, right ear; J03.90 Acute tonsillitis, unspecified; J45.909 Unspecified asthma, uncomplicated; F32.A Depression, unspecified; F41.0 Panic disorder [episodic paroxysmal anxiety]; F17.290 Nicotine dependence, other tobacco product, uncomplicated; F12.90 Cannabis use, unspecified, uncomplicated; Z79.899 Other long term (current) drug therapy; Z88.0 Allergy status to penicillin; Z88.5 Allergy status to narcotic agent; Z88.6 Allergy status to analgesic agent; Z88.8 Allergy status to other drugs, medicaments and biological substances; Z20.822 Contact with and (suspected) exposure to COVID-19
CPT/HCPCS: 87651; 87636; 99283; 96372; J2930